=== PATIENT | male | born 1940 | race African-American/Black ===

== ENCOUNTER 2020-02-22 14:53 | Inpatient (IN) | payer OTHER ==
[2020-02-22 15:30] VITALS: BMI 22.9
--- NOTE | 2020-02-22 16:59 | PDOC ---
Attending Attestation - Resident Resident Name: VanessaRoosevelt saucedo - ED Attending Attestation I have performed the following: I have examined & evaluated the patient, The case was reviewed & discussed with the resident, I agree w/resident's findings & plan, Exceptions are as noted - HPI HPI: 02/22/20 17:22 79y M hx of alzheimers, parkinsons, htn, hl, dm, presents with a complaint of leg weakness. Per the patients , the patient has been having difficulty ambulating and has been noticibly weaker per the . The pt was ambulating well, assisted on his own approx 1 week ago, but has been getting more unsteady - yesterday was so weak could not ambulate on his own and today, she was unable to walk at all. There has been no fever/chills, cough, n/v, cp, sob, headache, dizziness, neck pain, bakc pain, focal numbness/tingling/weakness. Pt has hx of havin ga UTI and was on abx dx by his urologist recently - Physicial Exam PE: 02/22/20 17:28 exam: general: well appering no acute distress card: rrr, no mrg pulm: cta b/l, no wheezing/rales/ abd: soft nontender neuro: movig all 4 ext spontaneously and symmetrically, normal speech ext: no edema, no focalbony tendernesss - Medical Decision Making 02/22/20 17:29 ddx: differential wide and includes but is not limited to metabolic derangeent, occult infection, anemia, will obtain blood work, ua, trop, ekg, ct head pt having difficult ambulating - unable to ambulate stably here wlll r/o organic cause if neg, anticipate admission for eval for gait instability Discharge - Discharge Information Problems reviewed: Yes Clinical Impression/Diagnosis: Unable to walk, Mobitz (type) II atrioventricular block Condition: Fair - Admission Yes - Follow up/Referral - Patient Discharge Instructions - Post Discharge Activity
--- NOTE | 2020-02-22 17:24 | PDOC ---
History of Present Illness - General Chief Complaint: Weakness Stated Complaint: UNABLE TO WALK Time Seen by Provider: 02/22/20 15:13 - History of Present Illness Initial Comments: 02/22/20 17:18 79yo M with PMH of Alzheimer's dementia, Parkinson's, HTN, HLD, NIDDM presents for inability to ambulate since yesterday. Per the , patient is ambulatory at baseline without walker or cane, but has not been able to stand or walk since last night. No fall or LOC. Per , he is at mental baseline. Also has had high blood sugar recently (300s at home), but otherwise no other acute symptoms. Patient has no complaints. Per , patient was started on a new medication for overactive bladder, as he was urinating in bed. PMH/PSH: as above Meds: see home meds Allergies: none ROS GENERAL/CONSTITUTIONAL: No fever or chills. HEAD, EYES, EARS, NOSE AND THROAT: No change in vision. No ear pain or discharge. No sore throat. CARDIOVASCULAR: No chest pain or shortness of breath RESPIRATORY: No cough, wheezing, or hemoptysis. GASTROINTESTINAL: No nausea, vomiting, diarrhea or constipation. GENITOURINARY: no change in urination, no hematuria MUSCULOSKELETAL: No joint or muscle swelling or pain. No neck or back pain. SKIN: No rash NEUROLOGIC: No headache, vertigo, loss of consciousness. Inability to walk ENDOCRINE: No increased thirst. No abnormal weight change HEMATOLOGIC/LYMPHATIC: No anemia, easy bleeding, or history of blood clots. ALLERGIC/IMMUNOLOGIC: No hives or skin allergy. PE GENERAL: AAOx2 (to person and "hospital", but not year). in no acute distress HEAD: No signs of trauma, normocephalic, atraumatic EYES: PERRLA, EOMI, sclera anicteric, conjunctiva clear ENT: Auricles normal inspection, hearing grossly normal, nares patent, oropharynx clear without exudates. Moist mucosa NECK: Normal ROM, supple, no lymphadenopathy, JVD, or masses LUNGS: No distress, speaks full sentences, clear to auscultation bilaterally HEART: Regular rate and rhythm, normal S1 and S2, no murmurs, rubs or gallops, peripheral pulses normal and equal bilaterally. ABDOMEN: Soft, nontender, normoactive bowel sounds. No guarding, no rebound. No masses EXTREMITIES : Normal inspection, Normal range of motion, no edema. No clubbing or cyanosis. NEUROLOGICAL: Cranial nerves II through XII grossly intact. Normal speech, no focal sensorimotor deficits. No midline tenderness or saddle anesthesia. Patient was able to stand and shuffle his feet with assistance and support, but he would have fallen without support. SKIN: Warm, Dry, normal turgor, no rashes or lesions noted Vital Signs Temp Pulse Resp BP Pulse Ox 98.5 F 74 16 112/59 L 98 02/22/20 15:00 02/22/20 15:00 02/22/20 15:00 02/22/20 15:00 02/22/20 15:55 MDM: 79yo M with PMH of Alzheimer's dementia, Parkinson's, HTN, HLD, NIDDM presents for inability to ambulate since yesterday. No focal defitis on neuro exam, but patient unable to stand or walk without support. This decline is sudden, so will rule out other pathology. DDx includes progression of chronic Parkinson's, UTI, occult abdominal infection, metabolic derangement. Anticipate admission for, at minimum, inability to ambulate. -EKG -CXR -CBC, CMP, lactic acid, VBG, trop, UA/UC 02/22/20 17:26 EKnd degree heart block type II, rate 72, left axis deviation, non-specific ST abnormality Labs: nothing emergent. No signs of infection or metabolic derangement. Pending UA Laboratory Tests 02/22/20 02/22/20 02/22/20 16:24 16:40 16:40 WBC 12.8 H RBC 4.46 Hgb 11.9 Hct 36.7 MCV 82.2 MCH 26.7 MCHC 32.5 RDW 16.1 H Plt Count 238 D MPV 9.8 Absolute Neuts (auto) 9.6 H Neutrophils % 75.1 D Lymphocytes % 7.0 L D Monocytes % 16.4 H Eosinophils % 1.0 D Basophils % 0.5 Nucleated RBC % 0 VBG pH 7.360 POC VBG pCO2 51.6 POC VBG pO2 27.8 L VBG HCO3 28.6 VBG O2 Sat (Gia) 49.0 L VBG Base Excess 2.2 H Sodium Potassium Chloride Carbon Dioxide Anion Gap BUN Creatinine Est GFR (CKD-EPI)AfAm Est GFR (CKD-EPI)NonAf POC Glucometer 336 Random Glucose Lactic Acid Calcium Total Bilirubin AST ALT Alkaline Phosphatase Troponin I Total Protein Albumin 02/22/20 02/22/20 02/22/20 16:40 16:40 16:40 WBC RBC Hgb Hct MCV MCH MCHC RDW Plt Count MPV Absolute Neuts (auto) Neutrophils % Lymphocytes % Monocytes % Eosinophils % Basophils % Nucleated RBC % VBG pH POC VBG pCO2 POC VBG pO2 VBG HCO3 VBG O2 Sat (Gia) VBG Base Excess Sodium 136 Potassium 4.8 Chloride 102 Carbon Dioxide 29 Anion Gap 5 L BUN 18.9 H Creatinine 1.3 Est GFR (CKD-EPI)AfAm 60.15 Est GFR (CKD-EPI)NonAf 51.90 POC Glucometer Random Glucose 342 H Lactic Acid 1.4 Calcium 9.2 Total Bilirubin 0.6 AST 33 ALT 25 Alkaline Phosphatase 125 H Troponin I < 0.02 Total Protein 7.1 Albumin 2.7 L 02/22/20 17:48 Will admit for inability to ambulate and 2nd degree heart block type II. Pending UA 02/22/20 19:[address] Jim who accepted the patient for admission Past History - Medical History Allergies/Adverse Reactions: Allergies Allergy/AdvReac Type Severity Reaction Status Date / Time No Known Allergies Allergy Verified 02/22/20 15:29 Home Medications: Ambulatory Orders Aspirin [ASA -] 81 mg PO DAILY 12/30/11 Atorvastatin Ca [Lipitor] 40 mg PO HS 12/30/11 Cyanocobalamin/Folic AC/Vit B6 [Folbic Tablet] 1 each PO DAILY 12/30/11 Rasagiline Mesylate [Azilect] 1 mg PO DAILY 12/30/11 Verapamil HCl [Verapamil ER] 240 mg PO DAILY 12/30/11 Albuterol Sulfate Inhaler - [Ventolin HFA Inhaler -] 1 - 2 inh IH QID PRN 11/13/12 Betamethasone Dipr 0.05% Oint [Diprolene] 50 gm NR DAILY 11/13/12 Rivastigmine Tartrate [Rivastigmine] 4.5 mg PO DAILY 11/13/12 Telmisartan [Micardis] 40 mg PO DAILY 11/13/12 Folic Acid - 1 mg PO DAILY #0 tablet 11/15/12 Brinzolamide [Azopt (Non-Formulary)] 1 drop OP 02/22/20 Clonidine HCl 0.1 mg PO 02/22/20 Ipratropium/Albuterol Sulfate [Iprat-Albut 0.5-3(2.5) mg/3 ml] 3 ml IH 02/22/20 Linagliptin [Tradjenta] 5 mg PO 02/22/20 Losartan Potassium 50 mg PO 02/22/20 Montelukast Na [Singulair -] 10 mg PO HS 02/22/20 Solifenacin Succinate [Vesicare -] 5 mg PO DAILY 02/22/20 Tamsulosin HCl 0.4 mg PO 02/22/20 Travoprost [Travatan Z] 02/22/20 Umeclidinium Brm/Vilanterol Tr [Anoro Ellipta 62.5-25 Mcg INH] 1 each IH DAILY 02/22/20 Asthma: Yes CVA: Yes COPD: No Dementia: Yes Diabetes: Yes HTN: Yes Hypercholesterolemia: Yes - Immunization History Td Vaccination: Yes TDAP Vaccination: Yes Immunization Up to Date: Yes - Psycho-Social/Smoking History Smoking Status: No Smoking History: Unknown if ever smoked Years of Tobacco Use: 0 Number of Cigarettes Smoked Daily: 0 Cigars Per Day: 0 - Substance Abuse Hx (Audit-C & DAST Scrn) How often the patient has a drink containing alcohol: Never Score: In Men: 4 or > Positive; In Women: 3 or > Positive: 0 Screen Result (Pos requires Nsg. Audit-10AR): Negative In the last yr the pt used illegal drug/Rx for NonMed reason: No Score: Yes response is considered Positive: 0 Screen Result (Positive result requires Nsg. DAST-10): Negative *Physical Exam - Vital Signs Last Vital Signs Temp Pulse Resp BP Pulse Ox 98.5 F 74 16 112/59 L 97 02/22/20 15:00 02/22/20 15:00 02/22/20 15:00 02/22/20 15:00 02/22/20 15:00 ED Treatment Course - LABORATORY CBC & Chemistry Diagram: 02/22/20 16:40 02/22/20 16:40 - ADDITIONAL ORDERS Additional order review: Laboratory Results 02/22/20 16:24 POC Glucometer 336 02/22/20 16:24 POC Glucometer 336 Discharge - Discharge Information Problems reviewed: Yes Clinical Impression/Diagnosis: Unable to walk, Mobitz (type) II atrioventricular block Condition: Fair - Admission Yes - Follow up/Referral - Patient Discharge Instructions - Post Discharge Activity
[2020-02-22 17:58] LABS: VENOUS PH 7.36 (7.310-7.410)
[2020-02-22 17:59] LABS: VENOUS BASE EXCESS 2.2 mmol/L (-2-2); VENOUS PCO2 51.6 mmHg (38-52)
[2020-02-22 18:03] LABS: BASO % 0.5 % (0-2.0); HEMATOCRIT 36.7 % (35.4-49); HEMOGLOBIN 11.9 GM/dL (11.7-16.9); MCH 26.7 pg (25.7-33.7); MCHC 32.5 g/dl (32.0-35.9); MEAN CELL VOLUME 82.2 fl (80-96); MEAN PLT VOLUME 9.8 fl (7.5-11.1); MONO % 16.4 % (3.8-10.2); NEUT % 75.1 % (42.8-82.8); PLATELET COUNT 238 K/MM3 (134-434); RBC 4.46 M/mm3 (4.00-5.60); RDW 16.1 % (11.9-15.9); WHITE BLOOD COUNT 12.8 K/mm3 (4.0-10.0)
[2020-02-22 18:25] LABS: ALBUMIN 2.7 g/dl (3.4-5.0); BILIRUBIN,TOTAL 0.6 mg/dL (0.2-1); BLOOD UREA NITROGEN 18.9 mg/dL (7-18); CALCIUM 9.2 mg/dL (8.5-10.1); CREATININE 1.3 mg/dL (0.55-1.3); POTASSIUM 4.8 mmol/L (3.5-5.1); TOT PROT 7.1 g/dl (6.4-8.2)
--- NOTE | 2020-02-22 18:52 | HP ---
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, Parkinson's Cardiovascular: Yes: CAD, HTN, Hyperlipdemia Pulmonary: No: Asthma, Bronchitis, Cancer, COPD, O2 Dependent, Pneumonia, Previously Intubated, Pulmonary Embolus, Pulmonary Fibrosis, Sleep Apnea, Other Gastrointestinal: No: Ascites, Cancer, Constipation, Crohn's Disease, Diverticulitis, Diverticulosis, Esophageal Varices, Gastritis, GERD, GI Bleed, Hemorrhoids, Hiatal Hernia, Inflamatory Bowel Disease, Irritable Bowel Disease, Pancreatitis, Peptic Ulcer Disease, Ulcerative Colitis, Other Hepatobiliary: No: Cirrhosis, Cholelithiasis, Cholecystitis, Zofia docholithiasis, Hepatitis A, Hepatitis B, Hepatitis C, Other Renal/: Yes: BPH Heme/Onc: No: Anemia, B12 Deficiency, Bleeding Disorder, Cancer, Current Chemotherapy, Current Radiation Therapy, Hemochromatosis, Hypercoaguable State, Myeloproliferative Synd, Sickle Cell Disease, Sickle Cell Trait, Thrombocytopenia, Other Infectious Disease: No: AIDS, C-Diff, Herpes Zoster, HIV, MRSA, STD's, Tuberculosis, VREF, Other Psych: No: Addictions, Anxiety, Bipolar, Depression, Panic, Psychosis, Schizophrenia, Other Musculoskeletal: No: Bursitis, Chronic low back pain, Hemiparesis, Hemiplegia, Osteoarthritis, Paraplegia, Other Rheumatology: No: Fibromyalgia, Gout, Lupus, Rheumatoid Arthritis, Sarcoidosis, Vasculitis, Other ENT: No: Allergic Rhinitis, Sinusitis, Other Endocrine: Yes: Diabetes Mellitus Dermatology: No: Basal Cell, Cellulitis, Eczema, Melanoma, Psoriasis, Squamous Cell, Other - Past Surgical History Past Surgical History: Yes: Stent - Smoking History Smoking history: Unknown if ever smoked Aproximately how many cigarettes per day: 0 Home Medications - Allergies Allergies/Adverse Reactions: Allergies Allergy/AdvReac Type Severity Reaction Status Date / Time No Known Allergies Allergy Verified 02/22/20 15:29 - Home Medications Home Medications: Ambulatory Orders Aspirin [ASA -] 81 mg PO DAILY 12/30/11 Atorvastatin Ca [Lipitor] 40 mg PO HS 12/30/11 Cyanocobalamin/Folic AC/Vit B6 [Folbic Tablet] 1 each PO DAILY 12/30/11 Rasagiline Mesylate [Azilect] 1 mg PO DAILY 12/30/11 Verapamil HCl [Verapamil ER] 240 mg PO DAILY 12/30/11 Albuterol Sulfate Inhaler - [Ventolin HFA Inhaler -] 1 - 2 inh IH QID PRN 11/13/12 Betamethasone Dipr 0.05% Oint [Diprolene] 50 gm NR DAILY 11/13/12 Rivastigmine Tartrate [Rivastigmine] 4.5 mg PO DAILY 11/13/12 Telmisartan [Micardis] 40 mg PO DAILY 11/13/12 Folic Acid - 1 mg PO DAILY #0 tablet 11/15/12 Brinzolamide [Azopt (Non-Formulary)] 1 drop OP 02/22/20 Clonidine HCl 0.1 mg PO 02/22/20 Ipratropium/Albuterol Sulfate [Iprat-Albut 0.5-3(2.5) mg/3 ml] 3 ml IH 02/22/20 Linagliptin [Tradjenta] 5 mg PO 02/22/20 Losartan Potassium 50 mg PO 02/22/20 Montelukast Na [Singulair -] 10 mg PO HS 02/22/20 Solifenacin Succinate [Vesicare -] 5 mg PO DAILY 02/22/20 Tamsulosin HCl 0.4 mg PO 02/22/20 Travoprost [Travatan Z] 02/22/20 Umeclidinium Brm/Vilanterol Tr [Anoro Ellipta 62.5-25 Mcg INH] 1 each IH DAILY 02/22/20 Review of Systems - Review of Systems Constitutional: reports: Weakness Eyes: reports: No Symptoms HENT: reports: No Symptoms Neck: reports: No Symptoms Cardiovascular: reports: No Symptoms Respiratory: reports: No Symptoms Gastrointestinal: reports: No Symptoms Genitourinary: reports: No Symptoms Breasts: reports: No Symptoms Reported Musculoskeletal: reports: Muscle Weakness Integumentary: reports: No Symptoms Neurological: reports: Unsteady Gait, Weakness Endocrine: reports: No Symptoms Hematology/Lymphatic: reports: No Symptoms Psychiatric: reports: No Symptoms Physical Examination Vital Signs: Vital Signs Temperature 98.5 F 02/22/20 15:00 Pulse Rate 74 02/22/20 15:00 Respiratory Rate 16 02/22/20 15:00 Blood Pressure 112/59 L 02/22/20 15:00 O2 Sat by Pulse Oximetry (%) 98 02/22/20 17:44 Constitutional: Yes: No Distress, Calm, Cachectic, Thin Eyes: Yes: Conjunctiva Clear, EOM Intact HENT: Yes: Atraumatic, Normocephalic Neck: Yes: Supple, Trachea Midline Cardiovascular: Yes: Regular Rate and Rhythm Respiratory: Yes: Regular, CTA Bilaterally Gastrointestinal: Yes: Normal Bowel Sounds, Soft ...Rectal Exam: Yes: Deferred Renal/: Yes: WNL Breast(s): Yes: WNL Musculoskeletal: Yes: Muscle Weakness Extremities: Yes: WNL Edema: No Peripheral Pulses WNL: Yes Integumentary: Yes: WNL Neurological: Yes: Alert, Unsteady Gait, Weakness ...Motor Strength: LLE (muscle weakness), RLE (muscle weakness) Psychiatric: Yes: Alert Labs: CBC, BMP 02/22/20 16:40 02/22/20 16:40 Imaging - Results EKG: Report Reviewed Other: Report Reviewed (lab data reviewed) Problem List - Problems (1) Mobitz (type) II atrioventricular block Code(s): I44.1 - ATRIOVENTRICULAR BLOCK, SECOND DEGREE (2) Unable to walk Code(s): R26.2 - DIFFICULTY IN WALKING, NOT ELSEWHERE CLASSIFIED Assessment/Plan Assessment/plan: acute inability to walk, Mobitz type II AV block, acute UTI, leukocytosis, Alzheimer's dementia, Parkinson's disease, HTN, HLD, DM, CAD, s/p stent, BPH; SQ Lovenox and oral pantoprazole for DVT/GI prophylaxis, consult to Neurology, Cardiology and ID, physical therapy, sliding scale regular insulin coverage for DM.
[2020-02-22 19:32] LABS: EPI CELLS 14 /uL (0-25.1); HYALINE CASTS 4 /uL (0-3.1); PH,URINE 6.5 (5.0-8.0); URINE APPEARANCE TURBID; URINE BACTERIA >9,000 /uL (0-1359); URINE BILIRUBIN NEGATIVE (NEGATIVE); URINE COLOR YELLOW; URINE GLUCOSE (UA) 3+ (NEGATIVE); URINE KETONE NEGATIVE (NEGATIVE); URINE LEUK ESTERASE 3+ (NEGATIVE); URINE NITRITE NEGATIVE (NEGATIVE); URINE PROTEIN 1+ (NEGATIVE); URINE RBC 167 /uL (0-23.9); URINE WBC 9616 /uL (0-25.8)
[2020-02-22 19:46] LABS: YEAST NO SEEN (NEGATIVE)
[2020-02-22] MEDS ORDERED: ALBUTEROL SO4 HFA INHALER IH PRN (20:02)
[2020-02-22] MEDS ORDERED: PANTOPRAZOLE 40 MG TABLET ONE (20:35)
[2020-02-22] MEDS ORDERED: ENOXAPARIN NA (PORCINE) 40 MG/0.4 ML DISP.SYRIN SQ ONE (20:35)
[2020-02-22] MEDS ORDERED: MONTELUKAST NA 10 MG TABLET ONE (20:35)
[2020-02-22] MEDS: PANTOPRAZOLE 40 MG TABLET PO SCH (20:56)
[2020-02-22] MEDS: ENOXAPARIN NA (PORCINE) 40 MG/0.4 ML DISP.SYRIN SQ SCH (20:56)
[2020-02-22] MEDS: INSULIN SLIDING SCALE (NOVOLOG) 1 VIAL SQ SCH (20:56)
[2020-02-22] MEDS: ATORVASTATIN CA 40 MG TABLET (FP) PO SCH (21:49)
[2020-02-22] MEDS: MONTELUKAST NA 5 MG TAB.CHEW PO SCH (21:49)
[2020-02-23] MEDS: INSULIN SLIDING SCALE (NOVOLOG) 1 VIAL SQ SCH ×3 (07:54→17:21)
--- NOTE | 2020-02-23 07:54 | CON.CARD ---
Consult Consult Specialty:: cardiology Reason for Consultation:: weakness; hx diastolic CHF; COPD - History of Present Illness Chief Complaint: Pt alert; knows he is in a hospital, but does not know which; does not know why he was admitted; does not know the date. Does not remember who his PMD is. History of Present Illness: Mr. 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 Per the patients , the patient has been having difficulty ambulating and has been noticeably weaker. The pt was ambulating well, assisted on his own approximately 1 week ago, but has been getting more unsteady - yesterday was so weak could not ambulate on his own and today, he was unable to walk at all. There has been no fever/chills, cough, n/v, cp, sob, headache, diz ziness, neck pain, bakc pain, focal numbness/tingling/weakness. Pt has hx of UTI and was on abx by his urologist recently Pt was last seen in our cardiology office 10/2018: ECHO 03/05/2018: (technically difficult study due to lung tissue interference and body habitus): normal LVEF: borderline LVH; abnormal diastolic compliance; mild MR and TR (normal RVSP). Carotid artery US: mild-moderate plaque; no stenoses. Pt's blood pressure was 160/70 mmHg initially that day; taken 10 minutes later, when pt had been sitting alone quietly, ti was 156/70 mmHg. His says BP checks at home vary, but are frequently elevated. Pt was restarted on a thiazide diuretic (chlorthalidone 25 mg daily); f/u serial BP checks, both at home and in offices, and BUN/Cr with electrolytes. Continued telmisartran (and increase dose if needed) and verapamil. Continued daily exercise; pt was walking daily. Added light weight-bearing and balance exercises. F/u fasting lipids (on atorvastatin) and glucose; TSH. Follow heart-healthy diet. Pt is seen by Dr. Scruggs pharmacovigilance specialist, for DM and hyperlipidemia. F/u with teachers assistant regarding COPD. PMD: Dr. Layne Blender / Cook: Dr. 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, Parkinson's Cardio/Vascular: Yes: CAD, HTN, Hyperlipdemia Pulmonary: No: Asthma, Bronchitis, Cancer, COPD, O2 Dependent, Pneumonia, Previously Intubated, Pulmonary Embolus, Pulmonary Fibrosis, Sleep Apnea, Other Gastrointestinal: No: Ascites, Cancer, Constipation, Crohn's Disease, Diverticulitis, Diverticulosis, Esophageal Varices, Gastritis, GERD, GI Bleed, Hemorrhoids, Hiatal Hernia, Inflamatory Bowel Disease, Irritable Bowel Disease, Pancreatitis, Peptic Ulcer Disease, Ulcerative Colitis, Other Hepatobiliary: No: Cirrhosis, Cholelithiasis, Cholecystitis, Choledocholithiasis, Hepatitis A, Hepatitis B, Hepatitis C, Other Renal/: Yes: BPH Infectious Disease: No: AIDS, C-Diff, Herpes Zoster, HIV, MRSA, STD's, Tuberculosis, VREF, Other Psych: No: Addictions, Anxiety, Bipolar, Depression, Panic, Psychosis, Schi zophrenia, Other Musculoskeletal: No: Bursitis, Chronic low back pain, Hemiparesis, Hemiplegia, Osteoarthritis, Paraplegia, Other Rheumatology: No: Fibromyalgia, Gout, Lupus, Rheumatoid Arthritis, Sarcoidosis, Vasculitis, Other ENT: No: Allergic Rhinitis, Sinusitis, Other Endocrine: Yes: Diabetes Mellitus Dermatology: No: Basal Cell, Cellulitis, Eczema, Melanoma, Psoriasis, Squamous Cell, Other - Past Surgical History Past Surgical History: Yes: Stent (coronary) - Alcohol/Substance Use Hx Alcohol Use: Yes - Smoking History Smoking history: Former smoker Have you smoked in the past 12 months: No Aproximately how many cigarettes per day: 0 - Social History Usual Living Arrangement: With Spouse Home Medications - Allergies Allergies/Adverse Reactions: Allergies Allergy/AdvReac Type Severity Reaction Status Date / Time No Known Allergies Allergy Verified 02/22/20 15:29 - Home Medications Home Medications: Ambulatory Orders Aspirin [ASA -] 81 mg PO DAILY 12/30/11 Atorvastatin Ca [Lipitor] 40 mg PO HS 12/30/11 Cyanocobalamin/Folic AC/Vit B6 [Folbic Tablet] 1 each PO DAILY 12/30/11 Rasagiline Mesylate [Azilect] 1 mg PO DAILY 12/30/11 Verapamil HCl [Verapamil ER] 240 mg PO DAILY 12/30/11 Albuterol Sulfate Inhaler - [Ventolin HFA Inhaler -] 1 - 2 inh IH QID PRN 11/13/12 Betamethasone Dipr 0.05% Oint [Diprolene] 50 gm NR DAILY 11/13/12 Rivastigmine Tartrate [Rivastigmine] 4.5 mg PO DAILY 11/13/12 Telmisartan [Micardis] 40 mg PO DAILY 11/13/12 Folic Acid - 1 mg PO DAILY #0 tablet 11/15/12 Brinzolamide [Azopt (Non-Formulary)] 1 drop OP 02/22/20 Clonidine HCl 0.1 mg PO 02/22/20 Ipratropium/Albuterol Sulfate [Iprat-Albut 0.5-3(2.5) mg/3 ml] 3 ml IH 02/22/20 Linagliptin [Tradjenta] 5 mg PO 02/22/20 Losartan Potassium 50 mg PO 02/22/20 Montelukast Na [Singulair -] 10 mg PO HS 02/22/20 Solifenacin Succinate [Vesicare -] 5 mg PO DAILY 02/22/20 Tamsulosin HCl 0.4 mg PO 02/22/20 Travoprost [Travatan Z] 02/22/20 Umeclidinium Brm/Vilanterol Tr [Anoro Ellipta 62.5-25 Mcg INH] 1 each IH DAILY 02/22/20 Review of Systems Unable to obtain ROS, reason: dementia - Risk Factors Known Risk Factors: Yes: Age, Gender Vital Signs: Vital Signs Temperature 99.8 F H 02/23/20 01:29 Pulse Rate 75 02/23/20 01:29 Respiratory Rate 20 02/23/20 04:40 Blood Pressure 164/78 02/23/20 07:00 O2 Sat by Pulse Oximetry (%) 94 L 02/23/20 07:00 Constitutional: Yes: Calm Eyes: Yes: WNL HENT: Yes: WNL Neck: Yes: WNL Respiratory: Yes: WNL Gastrointestinal: Yes: Soft Renal/: No: Anuria Cardiovascular: Yes: Regular Rate and Rhythm JVD: No Carotid Bruit: No PMI: Non-Displaced Heart Sounds: Yes: S1, S2, S4 Musculoskeletal: Yes: Muscle Weakness Extremities: Yes: Cool Edema: No Peripheral Pulses WNL: Yes Integumentary: Yes: WNL Neurological: Yes: Alert, Oriented, Weakness Psychiatric: Yes: Alert, Other (dementia) - Other Data Labs, Other Data: CBC, BMP 02/22/20 16:40 02/22/20 16:40 Troponin, BNP 02/22/20 16:40 Troponin I < 0.02 Troponin, BNP 02/22/20 16:40 Troponin I < 0.02 Abnormal Lab Results 02/22/20 02/23/20 16:40 12:36 Hemoglobin A1c % 7.8 H HDL Cholesterol 67 H Echo: Report Reviewed (2012: normal LVEF) Ejection Fraction %: LVEF > or = 40 % Imaging - Results Chest X-ray: Image Reviewed EKG: Image Reviewed Assessment/Plan Progressive weakness; admitted when noted unable to walk. Parkinson's Progressive (and now advanced) dementia DM HTN HLD diastolic LV dysfunction fromer alcoholic, cigarettes (quit both 40 yrs ago). Pl: COVID not detected EKG: NSR; normal study Telemetry: occasional VPCs, dropped ventricular beat with compensatory pause TNI < 0.02 F/u ECHO for LVEF, wall motion, valve status F/u neurology evaluation regarding Parkinson's Physical rehabilitation. F/u TSH, lipids, HGBA1c Discussed pt's present state with his .
[2020-02-23] MEDS: PANTOPRAZOLE 40 MG TABLET PO SCH (09:06)
[2020-02-23] MEDS: ENOXAPARIN NA (PORCINE) 40 MG/0.4 ML DISP.SYRIN SQ SCH (09:06)
[2020-02-23] MEDS: TAMSULOSIN HCL 0.4 MG CAP PO SCH (09:06)
[2020-02-23] MEDS: SOLIFENACIN SUCCINATE 5 MG TAB PO SCH (09:07)
[2020-02-23] MEDS: FOLIC ACID 1 MG TABLET (FP) PO SCH (09:10)
[2020-02-23] MEDS: ASPIRIN COATED 81 MG TABLET.EC PO SCH (09:10)
[2020-02-23] MEDS: CYANOCOBALAMIN 1,000 MCG TABLET (FP) PO SCH (09:10)
[2020-02-23] MEDS ORDERED: RIVASTIGMINE TARTRATE 1.5 MG CAPSULE PO SCH (10:00)
[2020-02-23] MEDS ORDERED: VERAPAMIL HCL 240 MG E.R. TABLET PO SCH (10:00)
[2020-02-23] MEDS ORDERED: LOSARTAN POTASSIUM 50 MG TABLET (FP) PO SCH (10:00)
[2020-02-23] MEDS ORDERED: VERAPAMIL HCL 120 MG E.R. TABLET PO SCH (10:36)
[2020-02-23] MEDS ORDERED: PT OWN MED DRAWER 7, Y5N ONE ×4 (10:51→22:01)
[2020-02-23] MEDS: BETAMETHASONE DIPR 0.05% OINT 45 GM TUBE TP SCH (11:38)
[2020-02-23] MEDS: VERAPAMIL HCL 120 MG E.R. TABLET PO SCH (11:46)
--- NOTE | 2020-02-23 11:47 | PN ---
Progress Note, Physician Chief Complaint: Patient seen and examined at the bedside, no acute events from last night, low grade fever. History of Present Illness: This 79 yr old male with PMH of Alzheimer's dementia, Parkinson's disease, HTN, HLD, CAD, DM admitted via ER with an acute inability to walk and an acute UTI. - Current Medication List Current Medications: Active Medications Albuterol Sulfate (Ventolin Hfa Inhaler -) 2 puff IH Q6H PRN PRN Reason: SHORT OF BREATH/WHEEZING Aspirin (Ecotrin -) 81 mg PO DAILY [facility] Last Admin: 02/23/20 09:10 Dose: 81 mg Documented by: Atorvastatin Calcium (Lipitor -) 40 mg PO HS [facility] Last Admin: 02/22/20 21:49 Dose: 40 mg Documented by: Betamethasone Dipropionate (Diprolene 0.05% Ointment -) 1 applic TP DAILY [facility] Last Admin: 02/23/20 11:38 Dose: 1 applic Documented by: Cyanocobalamin (Vitamin B12 -) 1,000 mcg PO DAILY [facility] Last Admin: 02/23/20 09:10 Dose: 1,000 mcg Documented by: Enoxaparin Sodium (Lovenox -) 40 mg SQ DAILY [facility] Last Admin: 02/23/20 09:06 Dose: 40 mg Documented by: Folic Acid (Folic Acid -) 1 mg PO DAILY [facility] Last Admin: 02/23/20 09:10 Dose: 1 mg Documented by: Insulin Aspart (Novolog Vial Sliding Scale -) 1 vial SQ TIDAC [facility]; Protocol Last Admin: 02/23/20 11:37 Dose: 2 unit Documented by: Losartan Potassium (Cozaar -) 50 mg PO DAILY [facility] Last Admin: 02/23/20 09:09 Dose: 50 mg Documented by: Montelukast Sodium (Singulair -) 10 mg PO HS [facility] Last Admin: 02/22/20 21:49 Dose: 10 mg Documented by: Pantoprazole Sodium (Protonix -) 40 mg PO DAILY [facility] Last Admin: 02/23/20 09:06 Dose: 40 mg Documented by: Rivastigmine Tartrate (Exelon) 4.5 mg PO DAILY [facility] Last Admin: 02/23/20 09:05 Dose: 4.5 mg Documented by: Solifenacin (Vesicare -) 5 mg PO DAILY [facility] Last Admin: 02/23/20 09:07 Dose: 5 mg Documented by: Tamsulosin HCl (Flomax -) 0.4 mg PO DAILY@0830 [facility] Last Admin: 02/23/20 09:06 Dose: 0.4 mg Documented by: Verapamil HCl (Calan Sr -) 120 mg PO DAILY [facility] - Objective Vital Signs: Vital Signs Temperature 99.6 F 02/23/20 09:00 Pulse Rate 84 02/23/20 09:00 Respiratory Rate 18 02/23/20 09:00 Blood Pressure 159/87 02/23/20 09:00 O2 Sat by Pulse Oximetry (%) 95 02/23/20 09:00 Constitutional: Yes: Well Nourished, No Distress, Calm Eyes: Yes: Conjunctiva Clear, EOM Intact HENT: Yes: Atraumatic, Normocephalic Neck: Yes: Supple, Trachea Midline Cardiovascular: Yes: Regular Rate and Rhythm Respiratory: Yes: Regular, CTA Bilaterally Gastrointestinal: Yes: Normal Bowel Sounds, Soft ...Rectal Exam: Yes: Deferred Genitourinary: Yes: WNL Breast(s): Yes: WNL Musculoskeletal: Yes: Muscle Weakness Edema: No Peripheral Pulses WNL: Yes Integumentary: Yes: WNL Neurological: Yes: Alert, Unsteady Gait, Weakness ...Motor Strength: LLE (muscle weakness), RLE (muscle weakness) Psychiatric: Yes: Alert Labs: CBC, BMP 02/22/20 16:40 02/22/20 16:40 Problem List - Problems (1) Mobitz (type) II atrioventricular block Code(s): I44.1 - ATRIOVENTRICULAR BLOCK, SECOND DEGREE (2) Unable to walk Code(s): R26.2 - DIFFICULTY IN WALKING, NOT ELSEWHERE CLASSIFIED Assessment/Plan Assessment/plan: acute inability to walk; diastolic LV dysfunction; mild leukocytosis; UTI; hypoalbuminemia; mild elevation of serum alk phos; Alzheimer's dementia, Parkinson's disease, HTN, HLD, BPH, CAD, DM; SQ Lovenox and oral pantoprazole for DVT/GI prophylaxis; albuterol sufate inha nd singulari for dyspnea/wheezing; tamsulosin for BPH; rivastigmine for dementia; atorvastatin for HLD; losartan and verapamil for HTN; vitamin b12 for vitamin b12 deficiency; sliding scale regular insulin coverage for DM; Vesicare for overactive bladder; out of bed in chair as tolerated; Neurology and ID consults are pending.
[2020-02-23 13:31] LABS: CHOLESTEROL 138 mg/dL (50-200); HDL CHOLESTEROL 67 mg/dL (40-60); LDL CHOLESTEROL (ONLY SJRH) 59 mg/dL (5-100); TRIGLYCERIDES 59 mg/dL (0-150)
--- NOTE | 2020-02-23 20:20 | PN ---
Progress Note (short form) - Note Progress Note: ID CONSULT DICTATED UTI R/O SEPSIS SECONDARY TO UTI AWAIT C/S EMPIRIC [id number]
--- NOTE | 2020-02-23 20:40 | CONSULT ---
Consult - text type - Consultation Consultation Note: NEUROLOGY CONSULTATION is greatly appreciated: This 79 yo RH man with PMH of HTN, DM, CHol Is well known to me over many years for Progressive OMS due to Alzheimers and Parkinsonism. 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 Peterson in the ED Labs sig for BG > 300 mg%, WBC= 12.8 K and Urinary WBC= 9616 ID Consult pending. WILBERT: Thin . Neck supple. Cor reg. I diaper NEURO: Awake, alert, friendly, cooperative. Doesn't know he is in [facility], nor the day, month or year. + Glabella, snout, grasps (symmetrical). Speech sparse but fluent CN II-XII: normal Moves all fours well. No drift. Normal grasps. Absent AJ's Feels touch distally x4 IMP: Non-focal exam sig for moderately severe B/L cerebral dysfunction (OMS) most c/w Alzheimer's disease (AD) with Parkinsonian features. Worsening due to Toxic-Metabolic Encephalopathy (UTI/ hyperglycemia) SUGGEST: Increase rivastigmine to 4.5 mg BID Hold levadopa for now Antibiotics as per ID Continue hydration Mobilize OO Bed to chair and/or DVT prophylaxis Thank you very much, Dilip Ruiz MD
[2020-02-23] MEDS: ATORVASTATIN CA 40 MG TABLET (FP) PO SCH (22:15)
[2020-02-23] MEDS: LOSARTAN POTASSIUM 50 MG TABLET (FP) PO SCH (22:15)
[2020-02-23] MEDS: RIVASTIGMINE TARTRATE 1.5 MG CAPSULE PO SCH (22:15)
[2020-02-23] MEDS: MONTELUKAST NA 5 MG TAB.CHEW PO SCH (22:15)
[2020-02-24] MEDS: INSULIN SLIDING SCALE (NOVOLOG) 1 VIAL SQ SCH ×3 (06:29→16:17)
[2020-02-24 07:24] LABS: BASO % 0.3 % (0-2.0); EOS % 0.5 % (0-4.5); HEMATOCRIT 39.4 % (35.4-49); HEMOGLOBIN 12.6 GM/dL (11.7-16.9); LYMPH % 5.2 % (8-40); MCH 26.2 pg (25.7-33.7); MEAN CELL VOLUME 81.6 fl (80-96); MEAN PLT VOLUME 9.5 fl (7.5-11.1); MONO % 13.4 % (3.8-10.2); NEUT % 80.6 % (42.8-82.8); PLATELET COUNT 263 K/MM3 (134-434); RBC 4.83 M/mm3 (4.00-5.60); RDW 16.1 % (11.9-15.9); WHITE BLOOD COUNT 11.5 K/mm3 (4.0-10.0)
[2020-02-24 07:54] LABS: POTASSIUM 4.1 mmol/L (3.5-5.1)
[2020-02-24 08:00] LABS: ALBUMIN 2.9 g/dl (3.4-5.0); BILIRUBIN,TOTAL 1.1 mg/dL (0.2-1); BLOOD UREA NITROGEN 21.3 mg/dL (7-18); CALCIUM 9.4 mg/dL (8.5-10.1); CREATININE 1.3 mg/dL (0.55-1.3); TOT PROT 8.6 g/dl (6.4-8.2)
--- NOTE | 2020-02-24 08:15 | PN ---
Progress Note, Physician Chief Complaint: Patient seen and examined at the bedside, no acute events from last night, afebrile. History of Present Illness: This 79 yr old male with PMH of Alzheimer's dementia, Parkinson's disease, HTN, HLD, CAD, DM admitted via ER with an acute inability to walk and an acute UTI, and leukocytosis. - Current Medication List Current Medications: Active Medications Albuterol Sulfate (Ventolin Hfa Inhaler -) 2 puff IH Q6H PRN PRN Reason: SHORT OF BREATH/WHEEZING Aspirin (Ecotrin -) 81 mg PO DAILY [facility] Last Admin: 02/23/20 09:10 Dose: 81 mg Documented by: Atorvastatin Calcium (Lipitor -) 40 mg PO HS [facility] Last Admin: 02/23/20 22:15 Dose: 40 mg Documented by: Betamethasone Dipropionate (Diprolene 0.05% Ointment -) 1 applic TP DAILY [facility] Last Admin: 02/23/20 11:38 Dose: 1 applic Documented by: Cyanocobalamin (Vitamin B12 -) 1,000 mcg PO DAILY [facility] Last Admin: 02/23/20 09:10 Dose: 1,000 mcg Documented by: Enoxaparin Sodium (Lovenox -) 40 mg SQ DAILY [facility] Last Admin: 02/23/20 09:06 Dose: 40 mg Documented by: Folic Acid (Folic Acid -) 1 mg PO DAILY [facility] Last Admin: 02/23/20 09:10 Dose: 1 mg Documented by: Ceftriaxone Sodium 1 gm/ (Dextrose) 50 mls @ 200 mls/hr IVPB DAILY [facility]; Protocol Insulin Aspart (Novolog Vial Sliding Scale -) 1 vial SQ TIDAC [facility]; Protocol Last Admin: 02/24/20 06:29 Dose: 6 unit Documented by: Losartan Potassium (Cozaar -) 50 mg PO BID [facility] Last Admin: 02/23/20 22:15 Dose: 50 mg Documented by: Metoprolol Succinate (Toprol Xl -) 50 mg PO DAILY [facility] Last Admin: 02/24/20 08:02 Dose: 50 mg Documented by: Montelukast Sodium (Singulair -) 10 mg PO HS [facility] Last Admin: 02/23/20 22:15 Dose: 10 mg Documented by: Pantoprazole Sodium (Protonix -) 40 mg PO DAILY [facility] Last Admin: 02/23/20 09:06 Dose: 40 mg Documented by: Rivastigmine Tartrate (Exelon) 4.5 mg PO BID [facility] Last Admin: 02/23/20 22:15 Dose: 4.5 mg Documented by: Solifenacin (Vesicare -) 5 mg PO DAILY [facility] Last Admin: 02/23/20 09:07 Dose: 5 mg Documented by: Tamsulosin HCl (Flomax -) 0.4 mg PO DAILY@0830 [facility] Last Admin: 02/23/20 09:06 Dose: 0.4 mg Documented by: Verapamil HCl (Calan Sr -) 120 mg PO DAILY [facility] Last Admin: 02/23/20 11:46 Dose: 120 mg Documented by: - Objective Vital Signs: Vital Signs Temperature 98.2 F 02/24/20 07:55 Pulse Rate 91 H 02/24/20 07:55 Respiratory Rate 18 02/24/20 07:55 Blood Pressure 165/101 H 02/24/20 07:55 O2 Sat by Pulse Oximetry (%) 96 02/24/20 07:55 Constitutional: Yes: Well Nourished, No Distress, Calm Eyes: Yes: Conjunctiva Clear, EOM Intact HENT: Yes: Atraumatic, Normocephalic Neck: Yes: Supple, Trachea Midline Cardiovascular: Yes: Regular Rate and Rhythm Respiratory: Yes: Regular, CTA Bilaterally Gastrointestinal: Yes: Normal Bowel Sounds, Soft ...Rectal Exam: Yes: Deferred Genitourinary: Yes: WNL Breast(s): Yes: WNL Musculoskeletal: Yes: Muscle Weakness Edema: No Peripheral Pulses WNL: Yes Integumentary: Yes: WNL Neurological: Yes: Alert, Confusion, Unsteady Gait, Weakness ...Motor Strength: LLE (muscle weakiness), RLE (muscle weakness) Psychiatric: Yes: Alert Labs: CBC, BMP 02/24/20 06:06 02/24/20 06:06 - ....Imaging Other: Report Reviewed (lab data reviewed) Problem List - Problems (1) Mobitz (type) II atrioventricular block Code(s): I44.1 - ATRIOVENTRICULAR BLOCK, SECOND DEGREE (2) Unable to walk Code(s): R26.2 - DIFFICULTY IN WALKING, NOT ELSEWHERE CLASSIFIED Assessment/Plan Assessment/plan: acute inability to walk, acute nonlactose fermenting gram negative bacilli UTI, neutrophilic leukocytosis, moderately severe bilateral cerebral dysfunction (OMS) most c/w Alzheimer's disease with Parkinsonian features worsening due to toxic metabolic encephalopathy (UTI, uncontrolled DM), HTN, HLD, CAD, DM; IV Ceftriaxone for UTI; SQ Lovenox aspirin and oral pantoprazole for DVT/GI prophylaxis; sliding scale regular insulin coverage for DM; albuterol and singulair for dyspnea/wheezing; tamsulosin for BPH; rivastigmine for dementia; atorvastatin for HLD; metoprolol and verapamil for HTN; vesicare for overactive bladder; physical therapy for deconditioning.
[2020-02-24] MEDS: TAMSULOSIN HCL 0.4 MG CAP PO SCH (08:27)
[2020-02-24] MEDS ORDERED: DEXTROSE 5%-WATER - 50 ML IVPB ONE (09:14)
[2020-02-24] MEDS ORDERED: cefTRIAXone SODIUM 1 GM VIAL ONE (09:14)
[2020-02-24] MEDS: ASPIRIN COATED 81 MG TABLET.EC PO SCH (10:09)
[2020-02-24] MEDS: FOLIC ACID 1 MG TABLET (FP) PO SCH (10:09)
[2020-02-24] MEDS: CEFTRIAXONE 1 GM in DEXTROSE 5%-WATER - 50 ML IVPB SCH (10:10)
[2020-02-24] MEDS: ENOXAPARIN NA (PORCINE) 40 MG/0.4 ML DISP.SYRIN SQ SCH (10:10)
[2020-02-24] MEDS: CYANOCOBALAMIN 1,000 MCG TABLET (FP) PO SCH (10:10)
[2020-02-24] MEDS: PANTOPRAZOLE 40 MG TABLET PO SCH (10:10)
[2020-02-24] MEDS: LOSARTAN POTASSIUM 50 MG TABLET (FP) PO SCH ×2 (10:11→21:46)
[2020-02-24] MEDS: BETAMETHASONE DIPR 0.05% OINT 45 GM TUBE TP SCH (10:11)
[2020-02-24] MEDS: VERAPAMIL HCL 120 MG E.R. TABLET PO SCH (10:14)
[2020-02-24] MEDS: SOLIFENACIN SUCCINATE 5 MG TAB PO SCH (10:15)
[2020-02-24] MEDS: RIVASTIGMINE TARTRATE 1.5 MG CAPSULE PO SCH ×2 (10:15→21:45)
--- NOTE | 2020-02-24 10:38 | PN ---
Progress Note, Physician History of Present Illness: Mr. 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 Per the patients , the patient has been having difficulty ambulating and has been noticeably weaker. The pt was ambulating well, assisted on his own approximately 1 week ago, but has been getting more unsteady - yesterday was so weak could not ambulate on his own and today, he was unable to walk at all. There has been no fever/chills, cough, n/v, cp, sob, headache, dizziness, neck pain, bakc pain, focal numbness/tingling/weakness. Pt has hx of UTI and was on abx by his urologist recently - Current Medication List Current Medications: Active Medications Albuterol Sulfate (Ventolin Hfa Inhaler -) 2 puff IH Q6H PRN PRN Reason: SHORT OF BREATH/WHEEZING Aspirin (Ecotrin -) 81 mg PO DAILY [facility] Last Admin: 02/24/20 10:09 Dose: 81 mg Documented by: Atorvastatin Calcium (Lipitor -) 40 mg PO HS [facility] Last Admin: 02/23/20 22:15 Dose: 40 mg Documented by: Betamethasone Dipropionate (Diprolene 0.05% Ointment -) 1 applic TP DAILY [facility] Last Admin: 02/24/20 10:11 Dose: 1 applic Documented by: Cyanocobalamin (Vitamin B12 -) 1,000 mcg PO DAILY [facility] Last Admin: 02/24/20 10:10 Dose: 1,000 mcg Documented by: Enoxaparin Sodium (Lovenox -) 40 mg SQ DAILY [facility] Last Admin: 02/24/20 10:10 Dose: 40 mg Documented by: Folic Acid (Folic Acid -) 1 mg PO DAILY [facility] Last Admin: 02/24/20 10:09 Dose: 1 mg Documented by: Ceftriaxone Sodium 1 gm/ (Dextrose) 50 mls @ 200 mls/hr IVPB DAILY [facility]; Protocol Last Admin: 02/24/20 10:10 Dose: 200 mls/hr Documented by: Insulin Aspart (Novolog Vial Sliding Scale -) 1 vial SQ TIDAC [facility]; Protocol Losartan Potassium (Cozaar -) 50 mg PO BID [facility] Last Admin: 02/24/20 10:11 Dose: 50 mg Documented by: Metoprolol Succinate (Toprol Xl -) 50 mg PO BID [facility] Montelukast Sodium (Singulair -) 10 mg PO HS [facility] Last Admin: 02/23/20 22:15 Dose: 10 mg Documented by: Pantoprazole Sodium (Protonix -) 40 mg PO DAILY [facility] Last Admin: 02/24/20 10:10 Dose: 40 mg Documented by: Rivastigmine Tartrate (Exelon) 4.5 mg PO BID [facility] Last Admin: 02/24/20 10:15 Dose: 4.5 mg Documented by: Solifenacin (Vesicare -) 5 mg PO DAILY [facility] Last Admin: 02/24/20 10:15 Dose: 5 mg Documented by: Tamsulosin HCl (Flomax -) 0.4 mg PO DAILY@0830 [facility] Last Admin: 02/24/20 08:27 Dose: 0.4 mg Documented by: Verapamil HCl (Calan Sr -) 120 mg PO DAILY [facility] Last Admin: 02/24/20 10:14 Dose: 120 mg Documented by: - Objective Vital Signs: Vital Signs Temperature 98.2 F 02/24/20 07:55 Pulse Rate 91 H 02/24/20 07:55 Respiratory Rate 18 02/24/20 07:55 Blood Pressure 165/101 H 02/24/20 07:55 O2 Sat by Pulse Oximetry (%) 96 02/24/20 07:55 Eyes: Yes: WNL, Conjunctiva Clear, EOM Intact HENT: Yes: WNL, Atraumatic, Normocephalic Neck: Yes: WNL, Supple, Trachea Midline Cardiovascular: Yes: WNL, Regular Rate and Rhythm Respiratory: Yes: WNL, Regular, CTA Bilaterally Gastrointestinal: Yes: WNL, Normal Bowel Sounds Genitourinary: Yes: WNL Musculoskeletal: Yes: WNL Extremities: Yes: WNL Edema: No Integumentary: Yes: WNL Labs: CBC, BMP 02/24/20 06:06 02/24/20 06:06 Assessment/Plan Progressive weakness; admitted when noted unable to walk. Parkinson's Progressive (and now advanced) dementia DM HTN HLD diastolic LV dysfunction fromer alcoholic, cigarettes (quit both 40 yrs ago). Pl: COVID not detected EKG: NSR; normal study Telemetry: occasional VPCs, dropped ventricular beat with compensatory pause TNI < 0.02 F/u ECHO for LVEF, wall motion, valve status F/u neurology evaluation regarding Parkinson's Physical rehabilitation. F/u TSH, lipids, HGBA1c Discussed pt's present state with his .
--- NOTE | 2020-02-24 10:52 | CONS ---
INFECTIOUS DISEASE CONSULTATION DATE OF CONSULTATION: DATE OF DICTATION: 02/24/2020 HISTORY: The patient is a 79-year-old male with a history of dementia and parkinsonism, evaluated for urinary tract infection. He was admitted to the hospital on February 22, 2020, with worsening bilateral lower extremity weakness and inability to ambulate. He presented to the emergency room. He was seen in consultation by Neurology. He has apparently had progressive dementia for many years secondary to Alzheimer's and parkinsonism. 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 He now comes in with increasing confusion and inability to ambulate. In the emergency room he was noted to have a fever and elevated white blood cell count. Urine analysis showed pyuria. He was felt to have severe bilateral cerebral dysfunction consistent with Alzheimer's dementia with parkinsonian features. At presentation he is awake and in bed. He is confused. He is unable to offer any additional history. When questioned he denied any dysuria or hematuria. No complaints of suprapubic or flank pain. He denies any chest pain, shortness of breath, cough or sputum production. No fever or chills. PAST MEDICAL HISTORY: Positive for parkinsonism, dementia, hypertension, hyperlipidemia, diabetes mellitus, coronary artery disease, coronary artery stent. ALLERGIES: No known allergies. MEDICATIONS: Include albuterol, Flomax, Lovenox, Lipitor, losartan, verapamil, aspirin, Protonix. SOCIAL HISTORY: He resides at home in the community with his significant other. He is a former smoker. No recent hospitalizations. SYSTEMS REVIEW: Neurologic: Positive for parkinsonism and dementia. Cardiac: Negative chest pain or palpitations. Respiratory: Negative cough or sputum production. Gastrointestinal: Negative vomiting or diarrhea. Genitourinary: As per HPI. LABORATORY DATA: White count 12.8, hematocrit 36.7, platelet count 238, neutrophils 75, lymphocytes 7, monocytes 16. BUN 21, creatinine 1.3, total bilirubin 1.1, alkaline phosphatase 145, AST 12, ALT 34. Urine analysis shows 9616 white cells. COVID-19 PCR negative. 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 PHYSICAL EXAMINATION: General: He is awake. However, he is confused. Vital Signs: His T-max is 100.8, blood pressure 147/89, pulse 79 regular, respirations 18 per minute. HEENT: Sclerae are anicteric. Heart: Sounds S1, S2. Lungs: Clear. Abdomen: Soft, nontender. No suprapubic or flank tenderness. Extremities: Negative for edema. IMPRESSION: 1. Urinary tract infection, rule out sepsis secondary to urinary tract infection. 2. Rule out toxic metabolic encephalopathy superimposed on dementia and parkinsonism. 3. Fever, leukocytosis. Await cultures. Empiric antibiotic coverage with ceftriaxone. Supportive measures. Thank you for the kind referral. DEEJAY JOHN M.D. [id number]
--- NOTE | 2020-02-24 10:56 | EKG ---
Test Reason : Blood Pressure : / mmHG Vent. Rate : 085 BPM Atrial Rate : 085 BPM P-R Int : 160 ms QRS Dur : 084 ms QT Int : 394 ms P-R-T Axes : 084 -66 077 degrees QTc Int : 468 ms NORMAL SINUS RHYTHM LEFT AXIS DEVIATION ABNORMAL ECG WHEN COMPARED WITH ECG OF 22-FEB-2020 17:32, MOBITZ 1 SECONDARY BLOCK IS NO LONGER SEEN Confirmed by LIZA HORNER, PETER ([id number]) on 02/24/2020 10:55:46 AM Referred By: Deuce MCLEOD Confirmed By:PETER DE JESUS MD
--- NOTE | 2020-02-24 11:01 | EKG ---
Test Reason : Blood Pressure : / mmHG Vent. Rate : 072 BPM Atrial Rate : 072 BPM P-R Int : 000 ms QRS Dur : 074 ms QT Int : 368 ms P-R-T Axes : 000 -68 037 degrees QTc Int : 402 ms SINUS RHYTHM WITH SECONDARY AV BLOCK MOBITZ 1 [place] LEFT AXIS DEVIATION NONSPECIFIC ST ABNORMALITY ABNORMAL ECG WHEN COMPARED WITH ECG OF 22-FEB-2020 15:39, MOBITZ 1 SECONDARY AV BLOCK IS SEEN Confirmed by PETER DE JESUS MD ([id number]) on 02/24/2020 11:01:04 AM Referred By: Confirmed By:PETER DE JESUS MD
--- NOTE | 2020-02-24 11:52 | CONSULT ---
Admitting History and Physical - Admission History of Present Illness: 79 yr old male with PMH of Alzheimer's dementia, Parkinson's disease, HTN, HLD, CAD, DM admitted via ER with an acute inability to walk and an acute UTI, and leukocytosis. Neuro IMP: Non-focal exam sig for moderately severe B/L cerebral dysfunction (OMS) most c/w Alzheimer's disease (AD) with Parkinsonian features. Worsening due to Toxic-Metabolic Encephalopathy (UTI/ hyperglycemia) On reg diet/thin liquids. Nursing reported pt demonstrates difficulty swallowing meds crushed in applesauce, taking a long time to swallow. Selected Entries 02/23/20 02/23/20 02/23/20 00:40 01:29 07:00 Breakfast Diet Tolerated Eating (Feeding Minimum ) Ability Assistance Intake, Oral Amount Lunch Supper Temperature 100.8 F H 99.8 F H Pulse Rate 89 75 Blood Pressure 154/71 164/78 O2 Sat by Pulse Oximetry (%) 02/23/20 02/23/20 02/23/20 09:00 11:48 14:10 Breakfast 50% Diet Tolerated Fair Eating (Feeding ) Ability Intake, Oral Amount Lunch Supper Temperature 99.6 F 98.2 F Pulse Rate 84 79 Blood Pressure 159/87 147/89 O2 Sat by Pulse Oximetry (%) 02/23/20 02/23/20 02/23/20 15:44 19:44 20:00 Breakfast Diet Tolerated Fair Eating (Feeding ) Ability Intake, Oral 100 Amount Lunch 50% Supper 50% Temperature 98 F Pulse Rate 82 Blood Pressure 183/71 H O2 Sat by Pulse Oximetry (%) 02/23/20 02/24/20 02/24/20 23:00 01:00 05:00 Breakfast Diet Tolerated Eating (Feeding ) Ability Intake, Oral 150 Amount Lunch Supper Temperature 98.6 F Pulse Rate 94 H 91 H Blood Pressure 182/106 H 192/109 H O2 Sat by Pulse 95 Oximetry (%) 02/24/20 07:55 Breakfast Diet Tolerated Eating (Feeding ) Ability Intake, Oral Amount Lunch Supper Temperature 98.2 F Pulse Rate 91 H Blood Pressure 165/101 H O2 Sat by Pulse 96 Oximetry (%) Laboratory Tests 02/22/20 02/22/20 02/24/20 16:40 18:20 06:06 WBC 12.8 H 11.5 H COVID-19 ([facility]RE[facility]) Not detected First consult on this pt. History Source: Medical Record Limitations to Obtaining History: Clinical Condition, Dementia - Past Medical History POST DOCTORAL FELLOW: Yes: Alzheimer's, Dementia, Parkinson's Cardiovascular: Yes: CAD, HTN, Hyperlipdemia Pulmonary: No: Asthma, Bronchitis, Cancer, COPD, O2 Dependent, Pneumonia, Previously Intubated, Pulmonary Embolus, Pulmonary Fibrosis, Sleep Apnea, Other Gastrointestinal: No: Ascites, Cancer, Constipation, Crohn's Disease, Diverticulitis, Diverticulosis, Esophageal Varices, Gastritis, GERD, GI Bleed, Hemorrhoids, Hiatal Hernia, Inflamatory Bowel Disease, Irritable Bowel Disease, Pancreatitis, Peptic Ulcer Disease, Ulcerative Colitis, Other Hepatobiliary: No: Cirrhosis, Cholelithiasis, Cholecystitis, Choledocholithiasis, Hepatitis A, Hepatitis B, Hepatitis C, Other Renal/: Yes: BPH Heme/Onc: No: Anemia, B12 Deficiency, Bleeding Disorder, Cancer, Current Chemotherapy, Current Radiation Therapy, Hemochromatosis, Hypercoaguable State, Myeloproliferative Synd, Sickle Cell Disease, Sickle Cell Trait, Thrombocytopenia, Other Infectious Disease: No: AIDS, C-Diff, Herpes Zoster, HIV, MRSA, STD's, Tuberculosis, VREF, Other Psych: No: Addictions, Anxiety, Bipolar, Depression, Panic, Psychosis, Schizophrenia, Other Musculoskeletal: No: Bursitis, Chronic low back pain, Hemiparesis, Hemiplegia, Osteoarthritis, Paraplegia, Other Rheumatology: No: Fibromyalgia, Gout, Lupus, Rheumatoid Arthritis, Sarcoidosis, Vasculitis, Other ENT: No: Allergic Rhinitis, Sinusitis, Other Endocrine: Yes: Diabetes Mellitus Dermatology: No: Basal Cell, Cellulitis, Eczema, Melanoma, Psoriasis, Squamous Cell, Other - Past Surgical History Past Surgical History: Yes: Stent (coronary) - Smoking History Smoking history: Former smoker Have you smoked in the past 12 months: No Aproximately how many cigarettes per day: 0 - Alcohol/Substance Use Hx Alcohol Use: Yes History - Admission Reason For Visit: UNABLE TO WALK/2ND DEGREE ATRIOVENTRICULAR BLOCK - Diagnostics X-ray: Report Reviewed (cxr (-)) - General Mental Status: Forgetful, Vague, Confused Attention: Mild Impairment Ability to Follow Directions: Fair Head/Neck Control: Good - Hearing Hearing: Functional Speech Evaluation - Communication Primary Language: ALGERIAN Communication: Yes: Simple Responses Oral Expression Ability: Yes: Mild Impairment - Speech Production Able to Make Needs Known: Yes: Mildly Impaired Intelligibility: Yes: Mildly Impaired - Speech Characteristics Voice Loudness: Mildly Soft/Quiet Voice Pitch: Yes: Mildly High Voice Phonatory-based Quality: Yes: Hoarse Speech Clarity: < 100% Nasal Resonance: Normal Articulation: Yes: Precise - Language/Auditory Comprehension Follows: Yes: 1 Stage Simple Commands Observation: Able to respond to yes/no queries: Yes, Comprehends Conversational Speech: Yes - Language/Verbal Expression Aphasia: Yes: Anomia Able to Respond to Simple Queries: Yes: Mildly Impaired - Swallow Evaluation/Bedside Assessment Current Nutritional Intake: Regular, Thin Liquids Oral Secretions: Yes: WFL Dentition: Yes: Adequate Facial Symmetry at Rest: Symmetrical Facial Symmetry on Retraction: Symmetrical Against Resistance Opening: Normal Against Resistance Closing: Normal Pucker Lips: Normal Smile: Normal Lingual Movement: Normal, Symmetric Lingual Speed of Movement: Normal Lingual Movement Strgth Against Opposition: Normal Lingual Movement Characteristics: Normal Laryngeal Elevation: WFL Laryngeal Movement: Able to Palpate Rate of Intake: Slow/Holding (needs reminders repeatedly to swallow puree and to stop chewing/swallow with solids) Bolus Size: Small Labial Seal: WFL Chewing: Impaired (extended. Impaired bolus formation/transfer) Oral Prep Time: Increased A-P Transit: Impaired Pocketing: Present Bilaterally Timing of Swallow: Delayed Coughing/Throat Clear: No Change in Voice: No Recommendations - Speech Evaluation, Impression/Plan Impression: Verbal, sweet, confused. Needs reminders repeatedly to swallow puree and to stop chewing/swallow with solids sec to Dementia/PD. No overt signs of aspiration - Disposition Discharge to: Alf Facility, To be Determined - Dysphagia Impressions/Plan Swallowing Skills: Impaired Dysphagia Impressions: Mild Impairment, Moderate Impairment *Silent aspiration: cannot be R/O at bedside Dysphagia Treatment Plan: Small Bites, Chin Tuck/Down, Trial Feedings, Facilitative Feeding, Safe Rate, 1/2 tsp. at a time, Elevate HOB during feed, Other (alternate solids with liquids to clear oropharynx) - Recommendations Diet Consistency: Dysphagia Minced, 1 - 2 Soft Items Medication Administration: Crushed with applesauce Liquids: Thin Liquids Supplement: Ensure, Magic Cup, Ensure Pudding
--- NOTE | 2020-02-24 15:20 | PN ---
Progress Note, Physician History of Present Illness: AWAKE, ALERT IN BED MORE ALERT NO COMPLAINTS DENIES DYSURIA/ HEMATURIA NO FEVER/ CHILLS URINE +GNR - Current Medication List Current Medications: Active Medications Albuterol Sulfate (Ventolin Hfa Inhaler -) 2 puff IH Q6H PRN PRN Reason: SHORT OF BREATH/WHEEZING Aspirin (Ecotrin -) 81 mg PO DAILY [facility] Last Admin: 02/24/20 10:09 Dose: 81 mg Documented by: Atorvastatin Calcium (Lipitor -) 40 mg PO HS [facility] Last Admin: 02/23/20 22:15 Dose: 40 mg Documented by: Betamethasone Dipropionate (Diprolene 0.05% Ointment -) 1 applic TP DAILY [facility] Last Admin: 02/24/20 10:11 Dose: 1 applic Documented by: Cyanocobalamin (Vitamin B12 -) 1,000 mcg PO DAILY [facility] Last Admin: 02/24/20 10:10 Dose: 1,000 mcg Documented by: Enoxaparin Sodium (Lovenox -) 40 mg SQ DAILY [facility] Last Admin: 02/24/20 10:10 Dose: 40 mg Documented by: Folic Acid (Folic Acid -) 1 mg PO DAILY [facility] Last Admin: 02/24/20 10:09 Dose: 1 mg Documented by: Ceftriaxone Sodium 1 gm/ (Dextrose) 50 mls @ 200 mls/hr IVPB DAILY [facility]; Protocol Last Admin: 02/24/20 10:10 Dose: 200 mls/hr Documented by: Insulin Aspart (Novolog Vial Sliding Scale -) 1 vial SQ TIDAC [facility]; Protocol Last Admin: 02/24/20 11:23 Dose: 4 unit Documented by: Losartan Potassium (Cozaar -) 50 mg PO BID [facility] Last Admin: 02/24/20 10:11 Dose: 50 mg Documented by: Metoprolol Succinate (Toprol Xl -) 50 mg PO BID [facility] Montelukast Sodium (Singulair -) 10 mg PO [facility] Last Admin: 02/23/20 22:15 Dose: 10 mg Documented by: Pantoprazole Sodium (Protonix -) 40 mg PO DAILY [facility] Last Admin: 02/24/20 10:10 Dose: 40 mg Documented by: Rivastigmine Tartrate (Exelon) 4.5 mg PO BID [facility] Last Admin: 02/24/20 10:15 Dose: 4.5 mg Documented by: Solifenacin (Vesicare -) 5 mg PO DAILY [facility] Last Admin: 02/24/20 10:15 Dose: 5 mg Documented by: Tamsulosin HCl (Flomax -) 0.4 mg PO DAILY@0830 [facility] Last Admin: 02/24/20 08:27 Dose: 0.4 mg Documented by: Verapamil HCl (Calan Sr -) 120 mg PO DAILY [facility] Last Admin: 02/24/20 10:14 Dose: 120 mg Documented by: - Objective Vital Signs: Vital Signs Temperature 98.2 F 02/24/20 07:55 Pulse Rate 91 H 02/24/20 07:55 Respiratory Rate 18 02/24/20 07:55 Blood Pressure 165/101 H 02/24/20 07:55 O2 Sat by Pulse Oximetry (%) 96 02/24/20 07:55 Constitutional: Yes: No Distress Eyes: Yes: Conjunctiva Clear Cardiovascular: Yes: Regular Rate and Rhythm, S1, S2 Respiratory: Yes: CTA Bilaterally Gastrointestinal: Yes: Normal Bowel Sounds, Soft. No: Tenderness Edema: No Labs: CBC, BMP 02/24/20 06:06 02/24/20 06:06 Assessment/Plan UTI R/O SEPSIS SECONDARY TO UTI PARKINSONISM OBS AWAIT C/S CONTINUE CEFTRIAXONE
[2020-02-24] MEDS ORDERED: NITROGLYCERIN 2% OINTMENT - 1GM PACKET TD PRN ×2 (17:55→17:59)
[2020-02-24] MEDS ORDERED: PT OWN MED DRAWER 7, Y5N ONE ×2 (21:44→21:47)
[2020-02-24] MEDS: ATORVASTATIN CA 40 MG TABLET (FP) PO SCH (21:46)
[2020-02-24] MEDS: MONTELUKAST NA 5 MG TAB.CHEW PO SCH (21:47)
[2020-02-25 07:06] LABS: BASO % 0.5 % (0-2.0); HEMATOCRIT 37.7 % (35.4-49); LYMPH % 6.5 % (8-40); MCH 26.4 pg (25.7-33.7); MCHC 31.9 g/dl (32.0-35.9); MEAN CELL VOLUME 82.8 fl (80-96); MEAN PLT VOLUME 9.9 fl (7.5-11.1); MONO % 13.5 % (3.8-10.2); NEUT % 78.5 % (42.8-82.8); PLATELET COUNT 258 K/MM3 (134-434); RBC 4.56 M/mm3 (4.00-5.60); RDW 16.5 % (11.9-15.9)
[2020-02-25] MEDS: INSULIN SLIDING SCALE (NOVOLOG) 1 VIAL SQ SCH ×3 (07:07→17:47)
[2020-02-25 07:32] LABS: ALBUMIN 2.5 g/dl (3.4-5.0); BILIRUBIN,TOTAL 0.8 mg/dL (0.2-1); BLOOD UREA NITROGEN 23.3 mg/dL (7-18); CALCIUM 9.1 mg/dL (8.5-10.1); CREATININE 1.2 mg/dL (0.55-1.3); POTASSIUM 3.9 mmol/L (3.5-5.1); TOT PROT 6.8 g/dl (6.4-8.2)
--- NOTE | 2020-02-25 08:38 | PN ---
Progress Note, Physician Chief Complaint: Patient seen and examined at the bedside, no acute events from last night, afebrile. History of Present Illness: This 79 yr old male with PMH of HTN, HLD, CAD, DM, Alzheimer's dementia with Parkinsonian features admitted via ER with an acute inability to walk and an acute UTI. - Current Medication List Current Medications: Active Medications Albuterol Sulfate (Ventolin Hfa Inhaler -) 2 puff IH Q6H PRN PRN Reason: SHORT OF BREATH/WHEEZING Aspirin (Ecotrin -) 81 mg PO DAILY [facility] Last Admin: 02/24/20 10:09 Dose: 81 mg Documented by: Atorvastatin Calcium (Lipitor -) 40 mg PO HS [facility] Last Admin: 02/24/20 21:46 Dose: 40 mg Documented by: Betamethasone Dipropionate (Diprolene 0.05% Ointment -) 1 applic TP DAILY [facility] Last Admin: 02/24/20 10:11 Dose: 1 applic Documented by: Cyanocobalamin (Vitamin B12 -) 1,000 mcg PO DAILY [facility] Last Admin: 02/24/20 10:10 Dose: 1,000 mcg Documented by: Enoxaparin Sodium (Lovenox -) 40 mg SQ DAILY [facility] Last Admin: 02/24/20 10:10 Dose: 40 mg Documented by: Folic Acid (Folic Acid -) 1 mg PO DAILY [facility] Last Admin: 02/24/20 10:09 Dose: 1 mg Documented by: Ceftriaxone Sodium 1 gm/ (Dextrose) 50 mls @ 200 mls/hr IVPB DAILY [facility]; Protocol Last Admin: 02/24/20 10:10 Dose: 200 mls/hr Documented by: Insulin Aspart (Novolog Vial Sliding Scale -) 1 vial SQ TIDAC [facility]; Protocol Last Admin: 02/25/20 07:07 Dose: 13 units Documented by: Losartan Potassium (Cozaar -) 50 mg PO BID [facility] Last Admin: 02/24/20 21:46 Dose: 50 mg Documented by: Metoprolol Succinate (Toprol Xl -) 50 mg PO BID [facility] Last Admin: 02/24/20 21:46 Dose: 50 mg Documented by: Montelukast Sodium (Singulair -) 10 mg PO HS [facility] Nitroglycerin (Nitro-Bid 2% Paste -) 1 inch TD Q6H PRN PRN Reason: HYPERTENSION Last Admin: 02/24/20 18:09 Dose: 1 inch Documented by: Pantoprazole Sodium (Protonix -) 40 mg PO DAILY [facility] Last Admin: 02/24/20 10:10 Dose: 40 mg Documented by: Rivastigmine Tartrate (Exelon) 4.5 mg PO BID [facility] Last Admin: 02/24/20 21:45 Dose: 4.5 mg Documented by: Solifenacin (Vesicare -) 5 mg PO DAILY [facility] Last Admin: 02/24/20 10:15 Dose: 5 mg Documented by: Tamsulosin HCl (Flomax -) 0.4 mg PO DAILY@0830 [facility] Last Admin: 02/24/20 08:27 Dose: 0.4 mg Documented by: Verapamil HCl (Calan Sr -) 120 mg PO DAILY [facility] Last Admin: 02/24/20 10:14 Dose: 120 mg Documented by: - Objective Vital Signs: Vital Signs Temperature 98.5 F 02/25/20 01:20 Pulse Rate 78 02/25/20 06:00 Respiratory Rate 18 02/25/20 06:00 Blood Pressure 182/93 H 02/25/20 06:00 O2 Sat by Pulse Oximetry (%) 96 02/24/20 20:41 Constitutional: Yes: Well Nourished, No Distress, Calm Eyes: Yes: Conjunctiva Clear, EOM Intact HENT: Yes: Atraumatic, Normocephalic Neck: Yes: Supple, Trachea Midline Cardiovascular: Yes: Regular Rate and Rhythm Respiratory: Yes: Regular, CTA Bilaterally Gastrointestinal: Yes: Normal Bowel Sounds, Soft ...Rectal Exam: Yes: Deferred Genitourinary: Yes: WNL Breast(s): Yes: WNL Musculoskeletal: Yes: Muscle Weakness Extremities: Yes: WNL Edema: No Peripheral Pulses WNL: Yes Integumentary: Yes: WNL Neurological: Yes: Alert, Unsteady Gait, Weakness ...Motor Strength: LLE (muscle weakness), RLE (muscle weakness) Psychiatric: Yes: Alert Labs: CBC, BMP 02/25/20 05:55 02/25/20 05:55 - ....Imaging Other: Report Reviewed (lab data reviewed) Problem List - Problems (1) Mobitz (type) II atrioventricular block Code(s): I44.1 - ATRIOVENTRICULAR BLOCK, SECOND DEGREE (2) Unable to walk Code(s): R26.2 - DIFFICULTY IN WALKING, NOT ELSEWHERE CLASSIFIED Assessment/Plan Assessment/plan: acute inability to walk, moderately severe bilateral cerebral dysfunction (OMS) most c/w Alzheimer's disease with Parkinsonian features worsening due to toxic metabolic encephalopathy (UTI, DM), HTN, HLD, CAD; IV Ceftriaxone as per ID for UTI; albuterol for dyspnea/wheezing; rivastigmine for dementia; tamsulosin for BPH; atorvastatin for HLD; SQ Lovenox and oral pantoprazole for DVT/GI prophylaxis; Losartan, Metoprolol, NTG, Verapamil and Clonidine for HTN; Vesicare for overactive bladder; vitamin b12 for vitamin b12 deficiency; physical therapy for deconditioning.
[2020-02-25] MEDS ORDERED: PT OWN MED DRAWER 7, Y5N ONE ×2 (09:36→21:00)
[2020-02-25] MEDS ORDERED: cefTRIAXone SODIUM 1 GM VIAL ONE (09:36)
[2020-02-25] MEDS ORDERED: DEXTROSE 5%-WATER - 50 ML IVPB ONE (09:37)
[2020-02-25] MEDS: TAMSULOSIN HCL 0.4 MG CAP PO SCH (09:51)
[2020-02-25] MEDS: LOSARTAN POTASSIUM 50 MG TABLET (FP) PO SCH ×2 (09:52→21:22)
[2020-02-25] MEDS: cloNIDine HCL 0.1 MG TABLET PO SCH ×2 (09:52→21:21)
[2020-02-25] MEDS: PANTOPRAZOLE 40 MG TABLET PO SCH (09:53)
[2020-02-25] MEDS: CEFTRIAXONE 1 GM in DEXTROSE 5%-WATER - 50 ML IVPB SCH (09:53)
[2020-02-25] MEDS: ASPIRIN COATED 81 MG TABLET.EC PO SCH (09:53)
[2020-02-25] MEDS: CYANOCOBALAMIN 1,000 MCG TABLET (FP) PO SCH (09:54)
[2020-02-25] MEDS: ENOXAPARIN NA (PORCINE) 40 MG/0.4 ML DISP.SYRIN SQ SCH (09:54)
[2020-02-25] MEDS: SOLIFENACIN SUCCINATE 5 MG TAB PO SCH (09:54)
[2020-02-25] MEDS: FOLIC ACID 1 MG TABLET (FP) PO SCH (09:54)
[2020-02-25] MEDS: RIVASTIGMINE TARTRATE 1.5 MG CAPSULE PO SCH ×2 (09:55→21:23)
[2020-02-25] MEDS: BETAMETHASONE DIPR 0.05% OINT 45 GM TUBE TP SCH (09:55)
[2020-02-25] MEDS: VERAPAMIL HCL 120 MG E.R. TABLET PO SCH (09:56)
--- NOTE | 2020-02-25 11:12 | PN ---
Progress Note, MANAGER MANAGING - Note Progress Note: UTI R/O SEPSIS SECONDARY TO UTI PARKINSONISM OBS Pt on reg diet/thin liquids Selected Entries 02/24/20 02/25/20 02/25/20 18:00 01:20 06:00 Breakfast Diet Tolerated Supper 50% Temperature 98.5 F Pulse Rate 74 78 Blood Pressure 150/79 182/93 H O2 Sat by Pulse Oximetry (%) 02/25/20 02/25/20 09:36 10:00 Breakfast 0 Diet Tolerated Refused Supper Temperature 99.7 F H Pulse Rate 76 Blood Pressure 191/92 H O2 Sat by Pulse 95 Oximetry (%) Laboratory Tests 02/22/20 02/24/20 02/25/20 16:40 06:06 05:55 WBC 12.8 H 11.5 H 11.[address] 02/23-Recommend diabetic, sodium controlled, dysphagia chopped diet with thin liquids. -Add Glucerna daily -Monitor need for additional supplements - Recommendations Diet Consistency: Dysphagia Minced, 1 - 2 Soft Items Medication Administration: Crushed with applesauce Liquids: Thin Liquids Supplement: Glucerna per RD
--- NOTE | 2020-02-25 12:36 | PN ---
Progress Note, Physician Chief Complaint: Pt is drowsy; does not recognize me (though pt in office for years); follows commands History of Present Illness: Mr. 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 Per the patients , the patient has been having difficulty ambulating and has been noticeably weaker. The pt was ambulating well, assisted on his own approximately 1 week ago, but has been getting more unsteady - yesterday was so weak could not ambulate on his own and today, he was unable to walk at all. There has been no fever/chills, cough, n/v, cp, sob, headache, dizziness, neck pain, bakc pain, focal numbness/tingling/weakness. Pt has hx of UTI and was on abx by his urologist recently Pt was last seen in our cardiology office 10/2018: ECHO 03/05/2018: (technically difficult study due to lung tissue interference and body habitus): normal LVEF: borderline LVH; abnormal diastolic compliance; mild MR and TR (normal RVSP). Carotid artery US: mild-moderate plaque; no stenoses. Pt's blood pressure was 160/70 mmHg initially that day; taken 10 minutes later, when pt had been sitting alone quietly, ti was 156/70 mmHg. His says BP checks at home vary, but are frequently elevated. Pt was restarted on a thiazide diuretic (chlorthalidone 25 mg daily); f/u serial BP checks, both at home and in offices, and BUN/Cr with electrolytes. Continued telmisartran (and increase dose if needed) and verapamil. Continued daily exercise; pt was walking daily. Added light weight-bearing and balance exercises. F/u fasting lipids (on atorvastatin) and glucose; TSH. Follow heart-healthy diet. Pt is seen by Dr. Scruggs recruiting assistant, for DM and hyperlipidemia. F/u with lens cutter regarding COPD. PMD: Dr. Flores and Michele Operational Meteorologist: Dr. Langford - Current Medication List Current Medications: Active Medications Albuterol Sulfate (Ventolin Hfa Inhaler -) 2 puff IH Q6H PRN PRN Reason: SHORT OF BREATH/WHEEZING Aspirin (Ecotrin -) 81 mg PO DAILY [facility] Last Admin: 02/25/20 09:53 Dose: 81 mg Documented by: Atorvastatin Calcium (Lipitor -) 40 mg PO HS [facility] Last Admin: 02/24/20 21:46 Dose: 40 mg Documented by: Betamethasone Dipropionate (Diprolene 0.05% Ointment -) 1 applic TP DAILY [facility] Last Admin: 02/25/20 09:55 Dose: 1 applic Documented by: Clonidine (Catapres -) 0.1 mg PO BID [facility] Last Admin: 02/25/20 09:52 Dose: 0.1 mg Documented by: Cyanocobalamin (Vitamin B12 -) 1,000 mcg PO DAILY [facility] Last Admin: 02/25/20 09:54 Dose: 1,000 mcg Documented by: Enoxaparin Sodium (Lovenox -) 40 mg SQ DAILY [facility] Last Admin: 02/25/20 09:54 Dose: 40 mg Documented by: Folic Acid (Folic Acid -) 1 mg PO DAILY [facility] Last Admin: 02/25/20 09:54 Dose: 1 mg Documented by: Ceftriaxone Sodium 1 gm/ (Dextrose) 50 mls @ 200 mls/hr IVPB DAILY [facility]; Protocol Last Admin: 02/25/20 09:53 Dose: 200 mls/hr Documented by: Insulin Aspart (Novolog Vial Sliding Scale -) 1 vial SQ TIDAC [facility]; Protocol Last Admin: 02/25/20 11:58 Dose: Not Given Documented by: Insulin Aspart (Novolog Mix 70/30 Vial) 5 units SQ BIDAC [facility] Losartan Potassium (Cozaar -) 50 mg PO BID [facility] Last Admin: 02/25/20 09:52 Dose: 50 mg Documented by: Metoprolol Succinate (Toprol Xl -) 50 mg PO BID [facility] Last Admin: 02/25/20 09:54 Dose: 50 mg Documented by: Montelukast Sodium (Singulair -) 10 mg PO HS [facility] Nitroglycerin (Nitro-Bid 2% Paste -) 1 inch TD Q6H PRN PRN Reason: HYPERTENSION Last Admin: 02/24/20 18:09 Dose: 1 inch Documented by: Pantoprazole Sodium (Protonix -) 40 mg PO DAILY [facility] Last Admin: 02/25/20 09:53 Dose: 40 mg Documented by: Rivastigmine Tartrate (Exelon) 4.5 mg PO BID [facility] Last Admin: 02/25/20 09:55 Dose: 4.5 mg Documented by: Solifenacin (Vesicare -) 5 mg PO DAILY [facility] Last Admin: 02/25/20 09:54 Dose: 5 mg Documented by: Tamsulosin HCl (Flomax -) 0.4 mg PO DAILY@0830 [facility] Last Admin: 02/25/20 09:51 Dose: 0.4 mg Documented by: Verapamil HCl (Calan Sr -) 120 mg PO DAILY [facility] Last Admin: 02/25/20 09:56 Dose: 120 mg Documented by: - Objective Vital Signs: Vital Signs Temperature 99.7 F H 02/25/20 10:00 Pulse Rate 76 02/25/20 10:00 Respiratory Rate 02/25/20 10:00 Blood Pressure 191/92 H 02/25/20 10:00 O2 Sat by Pulse Oximetry (%) 95 02/25/20 10:00 Constitutional: Yes: Anxious Eyes: Yes: WNL HENT: Yes: WNL Neck: Yes: WNL Cardiovascular: Yes: S1, S2, S4 Respiratory: Yes: Regular Gastrointestinal: Yes: Soft Genitourinary: No: Anuria Musculoskeletal: Yes: Muscle Weakness Extremities: Yes: Cool Edema: No Peripheral Pulses WNL: Yes Integumentary: Yes: WNL Neurological: Yes: Confusion, Weakness Psychiatric: Yes: Other (dementia) Labs: CBC, BMP 02/25/20 05:55 02/25/20 05:55 Abnormal Lab Results 02/25/20 02/25/20 05:55 05:55 WBC 11.0 H MCHC 31.9 L RDW 16.5 H Absolute Neuts (auto) 8.6 H Lymphocytes % 6.5 L D Monocytes % 13.5 H Anion Gap 5 L BUN 23.3 H Random Glucose 300 H Alkaline Phosphatase 129 H Albumin 2.5 L - ....Imaging Chest X-ray: Image Reviewed EKG: Image Reviewed Other: Image Reviewed (telemetry: no arrhythmias or significant pauses) Assessment/Plan Progressive weakness; admitted when noted unable to walk. Parkinson's Progressive (and now advanced) dementia DM: HTN HLD diastolic LV dysfunction Telemetry: no arrhythmias. fromer alcoholic, cigarettes (quit both 40 yrs ago). Pl: On antibiotics for r/o sepsis. EKG: NSR; normal study F/u ECHO for LVEF, wall motion, valve status On multiple medications (clonidine, verapamil, losartan, metoprolol) for HTN (Caution with continuing combination of clonidine and metoprolol: sudden withdrawal of either may result in rebound HTN, with additional potential complications of abrupt beta tessie withdrawal including FL, arrhythmias, etc). Discontinue telemetry
--- NOTE | 2020-02-25 14:07 | EKG ---
Test Reason : Blood Pressure : / mmHG Vent. Rate : 077 BPM Atrial Rate : 077 BPM P-R Int : 206 ms QRS Dur : 084 ms QT Int : 364 ms P-R-T Axes : 077 -39 044 degrees QTc Int : 411 ms POOR DATA QUALITY, INTERPRETATION MAY BE ADVERSELY AFFECTED NORMAL SINUS RHYTHM LEFT AXIS DEVIATION ABNORMAL ECG WHEN COMPARED WITH ECG OF 14-NOV-2012 10:14, NO SIGNIFICANT CHANGE WAS FOUND Confirmed by Blayne Mcelroy MD ([id number]) on 02/25/2020 2:07:04 PM Referred By: Confirmed By:Blayne Mcelroy MD
[2020-02-25] MEDS: INSULIN (NOVOLOG MIX 70/30) 100 UNITS/ML MDV SQ SCH (17:46)
[2020-02-25] MEDS: MONTELUKAST NA 10 MG TABLET PO SCH (21:20)
[2020-02-25] MEDS: ATORVASTATIN CA 40 MG TABLET (FP) PO SCH (21:20)
--- NOTE | 2020-02-25 21:23 | PN ---
Progress Note, Physician History of Present Illness: AWAKE, ALERT IN BED MORE ALERT NO COMPLAINTS DENIES DYSURIA/ HEMATURIA NO FEVER/ CHILLS URINE E COLI - Current Medication List Current Medications: Active Medications Albuterol Sulfate (Ventolin Hfa Inhaler -) 2 puff IH Q6H PRN PRN Reason: SHORT OF BREATH/WHEEZING Aspirin (Ecotrin -) 81 mg PO DAILY [facility] Last Admin: 02/25/20 09:53 Dose: 81 mg Documented by: Atorvastatin Calcium (Lipitor -) 40 mg PO HS [facility] Last Admin: 02/24/20 21:46 Dose: 40 mg Documented by: Betamethasone Dipropionate (Diprolene 0.05% Ointment -) 1 applic TP DAILY [facility] Last Admin: 02/25/20 09:55 Dose: 1 applic Documented by: Clonidine (Catapres -) 0.1 mg PO BID [facility] Last Admin: 02/25/20 09:52 Dose: 0.1 mg Documented by: Cyanocobalamin (Vitamin B12 -) 1,000 mcg PO DAILY [facility] Last Admin: 02/25/20 09:54 Dose: 1,000 mcg Documented by: Enoxaparin Sodium (Lovenox -) 40 mg SQ DAILY [facility] Last Admin: 02/25/20 09:54 Dose: 40 mg Documented by: Folic Acid (Folic Acid -) 1 mg PO DAILY [facility] Last Admin: 02/25/20 09:54 Dose: 1 mg Documented by: Ceftriaxone Sodium 1 gm/ (Dextrose) 50 mls @ 200 mls/hr IVPB DAILY [facility]; Protocol Last Admin: 02/25/20 09:53 Dose: 200 mls/hr Documented by: Insulin Aspart (Novolog Vial Sliding Scale -) 1 vial SQ TIDAC [facility]; Protocol Last Admin: 02/25/20 17:47 Dose: 11 units Documented by: Insulin Aspart (Novolog Mix 70/30 Vial) 5 units SQ BIDAC [facility] Last Admin: 02/25/20 17:46 Dose: 5 unit Documented by: Losartan Potassium (Cozaar -) 50 mg PO BID [facility] Last Admin: 02/25/20 09:52 Dose: 50 mg Documented by: Metoprolol Succinate (Toprol Xl -) 50 mg PO BID [facility] Last Admin: 02/25/20 09:54 Dose: 50 mg Documented by: Montelukast Sodium (Singulair -) 10 mg PO [facility] Nitroglycerin (Nitro-Bid 2% Paste -) 1 inch TD Q6H PRN PRN Reason: HYPERTENSION Last Admin: 02/24/20 18:09 Dose: 1 inch Documented by: Pantoprazole Sodium (Protonix -) 40 mg PO DAILY [facility] Last Admin: 02/25/20 09:53 Dose: 40 mg Documented by: Rivastigmine Tartrate (Exelon) 4.5 mg PO BID [facility] Last Admin: 02/25/20 09:55 Dose: 4.5 mg Documented by: Solifenacin (Vesicare -) 5 mg PO DAILY [facility] Last Admin: 02/25/20 09:54 Dose: 5 mg Documented by: Tamsulosin HCl (Flomax -) 0.4 mg PO DAILY@0830 [facility] Last Admin: 02/25/20 09:51 Dose: 0.4 mg Documented by: Verapamil HCl (Calan Sr -) 120 mg PO DAILY [facility] Last Admin: 02/25/20 09:56 Dose: 120 mg Documented by: - Objective Vital Signs: Vital Signs Temperature 98.4 F 02/25/20 21:16 Pulse Rate 71 02/25/20 21:16 Respiratory Rate 20 02/25/20 21:16 Blood Pressure 147/72 02/25/20 21:16 O2 Sat by Pulse Oximetry (%) 97 02/25/20 21:16 Constitutional: Yes: No Distress Eyes: Yes: Conjunctiva Clear Cardiovascular: Yes: Regular Rate and Rhythm, S1, S2 Respiratory: Yes: CTA Bilaterally Gastrointestinal: Yes: Normal Bowel Sounds, Soft Edema: No Labs: CBC, BMP 02/25/20 05:55 02/25/20 05:55 Assessment/Plan UTI R/O SEPSIS SECONDARY TO UTI PARKINSONISM OBS CONTINUE CEFTRIAXONE
[2020-02-26] MEDS: INSULIN SLIDING SCALE (NOVOLOG) 1 VIAL SQ SCH ×3 (06:46→16:56)
[2020-02-26] MEDS: INSULIN (NOVOLOG MIX 70/30) 100 UNITS/ML MDV SQ SCH ×2 (06:49→16:56)
[2020-02-26] MEDS ORDERED: PT OWN MED DRAWER 7, Y5N ONE ×3 (06:52→21:38)
[2020-02-26 07:12] LABS: BASO % 0.4 % (0-2.0); EOS % 4.3 % (0-4.5); HEMATOCRIT 38.6 % (35.4-49); HEMOGLOBIN 12.2 GM/dL (11.7-16.9); MCH 26.1 pg (25.7-33.7); MCHC 31.5 g/dl (32.0-35.9); MEAN CELL VOLUME 82.6 fl (80-96); MEAN PLT VOLUME 10.1 fl (7.5-11.1); MONO % 16.4 % (3.8-10.2); NEUT % 67.9 % (42.8-82.8); PLATELET COUNT 272 K/MM3 (134-434); RBC 4.67 M/mm3 (4.00-5.60); RDW 16.1 % (11.9-15.9); WHITE BLOOD COUNT 9.9 K/mm3 (4.0-10.0)
[2020-02-26 07:42] LABS: BLOOD UREA NITROGEN 30.5 mg/dL (7-18); CREATININE 1.4 mg/dL (0.55-1.3); POTASSIUM 3.9 mmol/L (3.5-5.1)
--- NOTE | 2020-02-26 08:03 | PN ---
Progress Note, Physician Chief Complaint: Patient seen and examined at the bedside, no acute events from last night, afebrile. History of Present Illness: This 79 yr old male with PMH of Alzheimer's dementia with Parkinsonian features, HTN, HLD, CAD, DM admitted via ER with an acute urosepsis due to UTI, and inability to walk. - Current Medication List Current Medications: Active Medications Albuterol Sulfate (Ventolin Hfa Inhaler -) 2 puff IH Q6H PRN PRN Reason: SHORT OF BREATH/WHEEZING Aspirin (Ecotrin -) 81 mg PO DAILY [facility] Last Admin: 02/25/20 09:53 Dose: 81 mg Documented by: Atorvastatin Calcium (Lipitor -) 40 mg PO HS [facility] Last Admin: 02/25/20 21:20 Dose: 40 mg Documented by: Betamethasone Dipropionate (Diprolene 0.05% Ointment -) 1 applic TP DAILY [facility] Last Admin: 02/25/20 09:55 Dose: 1 applic Documented by: Clonidine (Catapres -) 0.1 mg PO BID [facility] Last Admin: 02/25/20 21:21 Dose: 0.1 mg Documented by: Cyanocobalamin (Vitamin B12 -) 1,000 mcg PO DAILY [facility] Last Admin: 02/25/20 09:54 Dose: 1,000 mcg Documented by: Enoxaparin Sodium (Lovenox -) 40 mg SQ DAILY [facility] Last Admin: 02/25/20 09:54 Dose: 40 mg Documented by: Folic Acid (Folic Acid -) 1 mg PO DAILY [facility] Last Admin: 02/25/20 09:54 Dose: 1 mg Documented by: Ceftriaxone Sodium 1 gm/ (Dextrose) 50 mls @ 200 mls/hr IVPB DAILY [facility]; Protocol Last Admin: 02/25/20 09:53 Dose: 200 mls/hr Documented by: Insulin Aspart (Novolog Vial Sliding Scale -) 1 vial SQ TIDAC [facility]; Protocol Last Admin: 02/26/20 06:46 Dose: Not Given Documented by: Insulin Aspart (Novolog Mix 70/30 Vial) 5 units SQ BIDAC [facility] Last Admin: 02/26/20 06:49 Dose: 5 unit Documented by: Losartan Potassium (Cozaar -) 50 mg PO BID [facility] Last Admin: 02/25/20 21:22 Dose: 50 mg Documented by: Metoprolol Succinate (Toprol Xl -) 50 mg PO BID [facility] Last Admin: 02/25/20 21:20 Dose: 50 mg Documented by: Montelukast Sodium (Singulair -) 10 mg PO HS [facility] Last Admin: 02/25/20 21:20 Dose: 10 mg Documented by: Nitroglycerin (Nitro-Bid 2% Paste -) 1 inch TD Q6H PRN PRN Reason: HYPERTENSION Last Admin: 02/24/20 18:09 Dose: 1 inch Documented by: Pantoprazole Sodium (Protonix -) 40 mg PO DAILY [facility] Last Admin: 02/25/20 09:53 Dose: 40 mg Documented by: Rivastigmine Tartrate (Exelon) 4.5 mg PO BID [facility] Last Admin: 02/25/20 21:23 Dose: 4.5 mg Documented by: Solifenacin (Vesicare -) 5 mg PO DAILY [facility] Last Admin: 02/25/20 09:54 Dose: 5 mg Documented by: Tamsulosin HCl (Flomax -) 0.4 mg PO DAILY@0830 [facility] Last Admin: 02/25/20 09:51 Dose: 0.4 mg Documented by: Verapamil HCl (Calan Sr -) 120 mg PO DAILY [facility] Last Admin: 02/25/20 09:56 Dose: 120 mg Documented by: - Objective Vital Signs: Vital Signs Temperature 98 F 02/26/20 05:31 Pulse Rate 763 H 02/26/20 05:31 Respiratory Rate 18 02/26/20 05:31 Blood Pressure 126/80 02/26/20 05:31 O2 Sat by Pulse Oximetry (%) 97 02/25/20 21:16 Constitutional: Yes: Well Nourished, No Distress, Calm Eyes: Yes: Conjunctiva Clear, EOM Intact HENT: Yes: Atraumatic, Normocephalic Neck: Yes: Supple, Trachea Midline Cardiovascular: Yes: Regular Rate and Rhythm Respiratory: Yes: Regular, CTA Bilaterally Gastrointestinal: Yes: Normal Bowel Sounds, Soft ...Rectal Exam: Yes: Deferred Genitourinary: Yes: WNL Breast(s): Yes: WNL Musculoskeletal: Yes: Muscle Weakness Extremities: Yes: WNL Edema: No Peripheral Pulses WNL: Yes Integumentary: Yes: WNL Neurological: Yes: Alert, Confusion, Unsteady Gait, Weakness ...Motor Strength: LLE (muscle weakness), RLE (muscle weakness) Psychiatric: Yes: Alert Labs: CBC, BMP 02/26/20 06:06 02/26/20 06:06 - ....Imaging Other: Report Reviewed (lab data reviewed) Problem List - Problems (1) Mobitz (type) II atrioventricular block Code(s): I44.1 - ATRIOVENTRICULAR BLOCK, SECOND DEGREE (2) Unable to walk Code(s): R26.2 - DIFFICULTY IN WALKING, NOT ELSEWHERE CLASSIFIED Assessment/Plan Assessment/plan: acute inability to walk, acute E Coli UTI, acute urosepsis due to UTI, acute hypernatremia, moderately severe bilateral cerebral dysfunction (OMS) most c/w Alzheimer's disease with Parkinsonian features worsening due to toxic metabolic encephalopathy (UTI, hyperglycemia), HTN, HLD, CAD, DM; IV fluids for hypernatremia; IV Ceftriaxone as per ID for UTI; rivastigmine for dementia; tamsulosin for BPH; SQ Lovenox and oral pantoprazole for DVT/GI prophylaxis; atorvastatin for HLD; clonidine, losartan, metoprolol, NTG and verapamil for HTN; Vesicare for overactive bladder; Novolog 70/30 mix and sliding scale regular insulin coverage for DM; physical therapy for deconditioning.
[2020-02-26] MEDS ORDERED: DEXTROSE 5%-WATER - 1,000 ML IV SCH ×2 (08:45→19:08)
[2020-02-26] MEDS ORDERED: cefTRIAXone SODIUM 1 GM VIAL ONE (09:23)
[2020-02-26] MEDS ORDERED: DEXTROSE 5%-WATER - 50 ML IVPB ONE (09:23)
[2020-02-26] MEDS: PANTOPRAZOLE 40 MG TABLET PO SCH (10:23)
[2020-02-26] MEDS: cloNIDine HCL 0.1 MG TABLET PO SCH ×2 (10:23→21:53)
[2020-02-26] MEDS: TAMSULOSIN HCL 0.4 MG CAP PO SCH (10:23)
[2020-02-26] MEDS: ASPIRIN COATED 81 MG TABLET.EC PO SCH (10:23)
[2020-02-26] MEDS: ENOXAPARIN NA (PORCINE) 40 MG/0.4 ML DISP.SYRIN SQ SCH (10:23)
[2020-02-26] MEDS: CEFTRIAXONE 1 GM in DEXTROSE 5%-WATER - 50 ML IVPB SCH (10:23)
[2020-02-26] MEDS: CYANOCOBALAMIN 1,000 MCG TABLET (FP) PO SCH (10:23)
[2020-02-26] MEDS: FOLIC ACID 1 MG TABLET (FP) PO SCH (10:23)
[2020-02-26] MEDS: LOSARTAN POTASSIUM 50 MG TABLET (FP) PO SCH ×2 (10:23→21:54)
[2020-02-26] MEDS: VERAPAMIL HCL 120 MG E.R. TABLET PO SCH (10:25)
[2020-02-26] MEDS: SOLIFENACIN SUCCINATE 5 MG TAB PO SCH (10:26)
[2020-02-26] MEDS: BETAMETHASONE DIPR 0.05% OINT 45 GM TUBE TP SCH (10:26)
[2020-02-26] MEDS: RIVASTIGMINE TARTRATE 1.5 MG CAPSULE PO SCH ×2 (10:26→21:55)
--- NOTE | 2020-02-26 13:12 | PN ---
Progress Note, Physician History of Present Illness: Mr. 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 Per the patients , the patient has been having difficulty ambulating and has been noticeably weaker. The pt was ambulating well, assisted on his own approximately 1 week ago, but has been getting more unsteady - yesterday was so weak could not ambulate on his own and today, he was unable to walk at all. There has been no fever/chills, cough, n/v, cp, sob, headache, dizziness, neck pain, bakc pain, focal numbness/tingling/weakness. Pt has hx of UTI and was on abx by his urologist recently - Current Medication List Current Medications: Active Medications Albuterol Sulfate (Ventolin Hfa Inhaler -) 2 puff IH Q6H PRN PRN Reason: SHORT OF BREATH/WHEEZING Aspirin (Ecotrin -) 81 mg PO DAILY [facility] Last Admin: 02/26/20 10:23 Dose: 81 mg Documented by: Atorvastatin Calcium (Lipitor -) 40 mg PO HS [facility] Last Admin: 02/25/20 21:20 Dose: 40 mg Documented by: Betamethasone Dipropionate (Diprolene 0.05% Ointment -) 1 applic TP DAILY [facility] Last Admin: 02/26/20 10:26 Dose: 1 applic Documented by: Clonidine (Catapres -) 0.1 mg PO BID [facility] Last Admin: 02/26/20 10:23 Dose: 0.1 mg Documented by: Cyanocobalamin (Vitamin B12 -) 1,000 mcg PO DAILY [facility] Last Admin: 02/26/20 10:23 Dose: 1,000 mcg Documented by: Enoxaparin Sodium (Lovenox -) 40 mg SQ DAILY [facility] Last Admin: 02/26/20 10:23 Dose: 40 mg Documented by: Folic Acid (Folic Acid -) 1 mg PO DAILY [facility] Last Admin: 02/26/20 10:23 Dose: 1 mg Documented by: Ceftriaxone Sodium 1 gm/ (Dextrose) 50 mls @ 200 mls/hr IVPB DAILY [facility]; Protocol Last Admin: 02/26/20 10:23 Dose: 200 mls/hr Documented by: Dextrose (D5w -) 1,000 mls @ 75 mls/hr IV .[id number] [facility] Last Admin: 02/26/20 12:03 Dose: 75 mls/hr Documented by: Insulin Aspart (Novolog Vial Sliding Scale -) 1 vial SQ TIDAC [facility]; Protocol Last Admin: 02/26/20 12:03 Dose: Not Given Documented by: Insulin Aspart (Novolog Mix 70/30 Vial) 5 units SQ BIDAC [facility] Last Admin: 02/26/20 06:49 Dose: 5 unit Documented by: Losartan Potassium (Cozaar -) 50 mg PO BID [facility] Last Admin: 02/26/20 10:23 Dose: 50 mg Documented by: Metoprolol Succinate (Toprol Xl -) 50 mg PO BID [facility] Last Admin: 02/26/20 10:23 Dose: 50 mg Documented by: Montelukast Sodium (Singulair -) 10 mg PO HS [facility] Last Admin: 02/25/20 21:20 Dose: 10 mg Documented by: Nitroglycerin (Nitro-Bid 2% Paste -) 1 inch TD Q6H PRN PRN Reason: HYPERTENSION Last Admin: 02/24/20 18:09 Dose: 1 inch Documented by: Pantoprazole Sodium (Protonix -) 40 mg PO DAILY [facility] Last Admin: 02/26/20 10:23 Dose: 40 mg Documented by: Rivastigmine Tartrate (Exelon) 4.5 mg PO BID [facility] Last Admin: 02/26/20 10:26 Dose: 4.5 mg Documented by: Solifenacin (Vesicare -) 5 mg PO DAILY [facility] Last Admin: 02/26/20 10:26 Dose: 5 mg Documented by: Tamsulosin HCl (Flomax -) 0.4 mg PO DAILY@0830 [facility] Last Admin: 02/26/20 10:23 Dose: 0.4 mg Documented by: Verapamil HCl (Calan Sr -) 120 mg PO DAILY [facility] Last Admin: 02/26/20 10:25 Dose: 120 mg Documented by: - Objective Vital Signs: Vital Signs Temperature 97.9 F 02/26/20 10:00 Pulse Rate 61 02/26/20 10:00 Respiratory Rate 18 02/26/20 10:00 Blood Pressure 140/71 02/26/20 10:00 O2 Sat by Pulse Oximetry (%) 95 02/26/20 09:00 Eyes: Yes: WNL, Conjunctiva Clear, EOM Intact HENT: Yes: WNL, Atraumatic, Normocephalic Neck: Yes: WNL, Supple, Trachea Midline Cardiovascular: Yes: WNL, Regular Rate and Rhythm Respiratory: Yes: WNL, Regular, CTA Bilaterally Gastrointestinal: Yes: WNL, Normal Bowel Sounds Genitourinary: Yes: WNL Musculoskeletal: Yes: WNL Extremities: Yes: WNL Edema: No Integumentary: Yes: WNL Labs: CBC, BMP 02/26/20 06:06 02/26/20 06:06 Assessment/Plan Progressive weakness; admitted when noted unable to walk. Parkinson's Progressive (and now advanced) dementia DM Progressive weakness; admitted when noted unable to walk. Parkinson's Progressive (and now advanced) dementia DM: HTN HLD diastolic LV dysfunction Telemetry: no arrhythmias. fromer alcoholic, cigarettes (quit both 40 yrs ago). Pl: On antibiotics for r/o sepsis. EKG: NSR; normal study F/u ECHO for LVEF, wall motion, valve status On multiple medications (clonidine, verapamil, losartan, metoprolol) for HTN (Caution with continuing combination of clonidine and metoprolol: sudden withdrawal of either may result in rebound HTN, with additional potential complications of abrupt beta tessie withdrawal including ID, arrhythmias, etc). Discontinue telemetry
--- NOTE | 2020-02-26 13:35 | PN ---
Progress Note, [employer] - Note Progress Note: Selected Entries 02/25/20 02/25/20 02/25/20 09:36 14:00 18:00 Breakfast 0 Lunch 25% Supper 50% Temperature Pulse Rate Blood Pressure 02/26/20 02/26/20 02/26/20 02:00 05:31 10:00 Breakfast Lunch Supper Temperature 98.1 F 98 F 97.9 F Pulse Rate 63 763 H 61 Blood Pressure 151/72 126/80 140/71 Laboratory Tests 02/26/20 06:06 WBC 9.9 Oral holding with poor po intake. Drinking Glucerna Suggest downgrade to puree/thin liquid, Glucerna, Magic cup, alternate puree with liquids, frequent cues to swallow
[2020-02-26] MEDS ORDERED: ALBUTEROL SO4 2.5/IPRATROPIUM 0.5 INH SOL 3 ML VIAL.NEB. NEB PRN (18:55)
[2020-02-26] MEDS: MONTELUKAST NA 10 MG TABLET PO SCH (21:54)
[2020-02-26] MEDS: ATORVASTATIN CA 40 MG TABLET (FP) PO SCH (21:54)
[2020-02-27] MEDS: INSULIN SLIDING SCALE (NOVOLOG) 1 VIAL SQ SCH ×3 (06:50→17:11)
[2020-02-27] MEDS: INSULIN (NOVOLOG MIX 70/30) 100 UNITS/ML MDV SQ SCH ×2 (06:54→17:10)
[2020-02-27 08:00] LABS: BASO % 0.8 % (0-2.0); EOS % 5.7 % (0-4.5); HEMATOCRIT 38.4 % (35.4-49); HEMOGLOBIN 12.2 GM/dL (11.7-16.9); LYMPH % 10.5 % (8-40); MCH 26.3 pg (25.7-33.7); MCHC 31.9 g/dl (32.0-35.9); MEAN CELL VOLUME 82.4 fl (80-96); MONO % 13.3 % (3.8-10.2); NEUT % 69.7 % (42.8-82.8); PLATELET COUNT 263 K/MM3 (134-434); RBC 4.66 M/mm3 (4.00-5.60); RDW 15.9 % (11.9-15.9); WHITE BLOOD COUNT 9.2 K/mm3 (4.0-10.0)
[2020-02-27] MEDS: TAMSULOSIN HCL 0.4 MG CAP PO SCH (08:32)
[2020-02-27 08:45] LABS: ALBUMIN 2.3 g/dl (3.4-5.0); BILIRUBIN,TOTAL 1.2 mg/dL (0.2-1); BLOOD UREA NITROGEN 23.7 mg/dL (7-18); CALCIUM 9.1 mg/dL (8.5-10.1); CREATININE 1.2 mg/dL (0.55-1.3); TOT PROT 6.7 g/dl (6.4-8.2)
[2020-02-27] MEDS ORDERED: DEXTROSE 5%-WATER - 50 ML IVPB ONE (09:22)
[2020-02-27] MEDS ORDERED: PT OWN MED DRAWER 7, Y5N ONE ×2 (09:22→21:52)
[2020-02-27] MEDS ORDERED: cefTRIAXone SODIUM 1 GM VIAL ONE (09:22)
[2020-02-27] MEDS: cloNIDine HCL 0.1 MG TABLET PO SCH ×2 (10:19→22:46)
[2020-02-27] MEDS: FOLIC ACID 1 MG TABLET (FP) PO SCH (10:19)
[2020-02-27] MEDS: ENOXAPARIN NA (PORCINE) 40 MG/0.4 ML DISP.SYRIN SQ SCH (10:19)
[2020-02-27] MEDS: CEFTRIAXONE 1 GM in DEXTROSE 5%-WATER - 50 ML IVPB SCH (10:19)
[2020-02-27] MEDS: CYANOCOBALAMIN 1,000 MCG TABLET (FP) PO SCH (10:19)
[2020-02-27] MEDS: ASPIRIN COATED 81 MG TABLET.EC PO SCH (10:19)
[2020-02-27] MEDS: PANTOPRAZOLE 40 MG TABLET PO SCH (10:19)
[2020-02-27] MEDS: LOSARTAN POTASSIUM 50 MG TABLET (FP) PO SCH ×2 (10:20→22:46)
[2020-02-27] MEDS: RIVASTIGMINE TARTRATE 1.5 MG CAPSULE PO SCH ×2 (10:20→22:46)
[2020-02-27] MEDS: VERAPAMIL HCL 120 MG E.R. TABLET PO SCH (10:20)
[2020-02-27] MEDS: BETAMETHASONE DIPR 0.05% OINT 45 GM TUBE TP SCH (10:20)
--- NOTE | 2020-02-27 10:26 | PN ---
Progress Note, [employer] - Note Progress Note: Selected Entries 02/26/20 02/27/20 02/27/20 23:00 02:00 06:00 Supper 50% Temperature 98 F 98.1 F Pulse Rate 87 60 Blood Pressure 156/84 163/76 Laboratory Tests 02/27/20 07:10 WBC 9.2
[2020-02-27] MEDS: SOLIFENACIN SUCCINATE 5 MG TAB PO SCH (11:42)
[2020-02-27] MEDS ORDERED: INSULIN (NOVOLOG) ASPART 100 UNITS/ML 10ML VIAL ONE (11:49)
--- NOTE | 2020-02-27 14:20 | PN ---
Progress Note, Physician Chief Complaint: Patient seen and examined at the bedside, no acute events from last night, afebrile. History of Present Illness: This 79 yr old male with PMH of Alzheimer's disease with Parkinsonian features, HTN, HLD, CAD, DM admitted via ER with an acute inability to walk and an acute UTI. - Current Medication List Current Medications: Active Medications Albuterol Sulfate (Ventolin Hfa Inhaler -) 2 puff IH Q6H PRN PRN Reason: SHORT OF BREATH/WHEEZING Albuterol/Ipratropium (Duoneb -) 1 amp NEB Q8H PRN PRN Reason: SHORT OF BREATH/WHEEZING Aspirin (Ecotrin -) 81 mg PO DAILY [facility] Last Admin: 02/27/20 10:19 Dose: 81 mg Documented by: Atorvastatin Calcium (Lipitor -) 40 mg PO HS [facility] Last Admin: 02/26/20 21:54 Dose: 40 mg Documented by: Betamethasone Dipropionate (Diprolene 0.05% Ointment -) 1 applic TP DAILY [facility] Last Admin: 02/27/20 10:20 Dose: 1 applic Documented by: Clonidine (Catapres -) 0.1 mg PO BID [facility] Last Admin: 02/27/20 10:19 Dose: 0.1 mg Documented by: Cyanocobalamin (Vitamin B12 -) 1,000 mcg PO DAILY [facility] Last Admin: 02/27/20 10:19 Dose: 1,000 mcg Documented by: Enoxaparin Sodium (Lovenox -) 40 mg SQ DAILY [facility] Last Admin: 02/27/20 10:19 Dose: 40 mg Documented by: Folic Acid (Folic Acid -) 1 mg PO DAILY [facility] Last Admin: 02/27/20 10:19 Dose: 1 mg Documented by: Ceftriaxone Sodium 1 gm/ (Dextrose) 50 mls @ 200 mls/hr IVPB DAILY [facility]; Protocol Last Admin: 02/27/20 10:19 Dose: 200 mls/hr Documented by: Dextrose (D5w -) 1,000 mls @ 50 mls/hr IV .[id number] [facility] Insulin Aspart (Novolog Mix 70/30 Vial) 5 units SQ BIDAC [facility] Last Admin: 02/27/20 06:54 Dose: 5 unit Documented by: Insulin Aspart (Novolog Vial Sliding Scale -) 1 vial SQ TIDAC [facility]; Protocol Last Admin: 02/27/20 11:50 Dose: 4 units Documented by: Losartan Potassium (Cozaar -) 50 mg PO BID [facility] Last Admin: 02/27/20 10:20 Dose: 50 mg Documented by: Metoprolol Succinate (Toprol Xl -) 50 mg PO BID [facility] Last Admin: 02/27/20 10:19 Dose: 50 mg Documented by: Montelukast Sodium (Singulair -) 10 mg PO HS [facility] Last Admin: 02/26/20 21:54 Dose: 10 mg Documented by: Nitroglycerin (Nitro-Bid 2% Paste -) 1 inch TD Q6H PRN PRN Reason: HYPERTENSION Last Admin: 02/24/20 18:09 Dose: 1 inch Documented by: Pantoprazole Sodium (Protonix -) 40 mg PO DAILY [facility] Last Admin: 02/27/20 10:19 Dose: 40 mg Documented by: Rivastigmine Tartrate (Exelon) 4.5 mg PO BID [facility] Last Admin: 02/27/20 10:20 Dose: 4.5 mg Documented by: Solifenacin (Vesicare -) 5 mg PO DAILY [facility] Last Admin: 02/27/20 11:42 Dose: 5 mg Documented by: Tamsulosin HCl (Flomax -) 0.4 mg PO DAILY@0830 [facility] Last Admin: 02/27/20 08:32 Dose: 0.4 mg Documented by: Verapamil HCl (Calan Sr -) 120 mg PO DAILY [facility] Last Admin: 02/27/20 10:20 Dose: 120 mg Documented by: - Objective Vital Signs: Vital Signs Temperature 97.8 F 02/27/20 10:00 Pulse Rate 63 02/27/20 10:00 Respiratory Rate 20 02/27/20 10:00 Blood Pressure 177/83 H 02/27/20 10:00 O2 Sat by Pulse Oximetry (%) 99 02/27/20 09:00 Constitutional: Yes: Well Nourished, No Distress, Calm Eyes: Yes: Conjunctiva Clear, EOM Intact HENT: Yes: Atraumatic, Normocephalic Neck: Yes: Supple, Trachea Midline Cardiovascular: Yes: Regular Rate and Rhythm Respiratory: Yes: Regular, CTA Bilaterally Gastrointestinal: Yes: Normal Bowel Sounds, Soft ...Rectal Exam: Yes: Deferred Genitourinary: Yes: WNL Breast(s): Yes: WNL Musculoskeletal: Yes: Muscle Weakness Extremities: Yes: WNL Edema: No Peripheral Pulses WNL: Yes Integumentary: Yes: WNL Neurological: Yes: Alert, Unsteady Gait, Weakness ...Motor Strength: LLE (muscle weakness), RLE (muscle weakness) Psychiatric: Yes: Alert Labs: CBC, BMP 02/27/20 07:10 02/27/20 07:10 - ....Imaging Other: Report Reviewed (lab data reviewed) Problem List - Problems (1) Mobitz (type) II atrioventricular block Code(s): I44.1 - ATRIOVENTRICULAR BLOCK, SECOND DEGREE (2) Unable to walk Code(s): R26.2 - DIFFICULTY IN WALKING, NOT ELSEWHERE CLASSIFIED Assessment/Plan Assessment/plan: acute inabilty to walk, IV Ceftriaxone as per ID for acute urosepsis due to E Coli UTI; rivastigmine for dementia; tamsulosin for BPH; SQ Lovenox and oral pantoprazole for DVT/GI prophylaxis; clonidine, metoprolol, losartan, NTG and verapamil for HTN; atorvastatin for HLD; physical therapy for deconditioning; duoneb for dyspnea/wheezing.
[2020-02-27] MEDS: ATORVASTATIN CA 40 MG TABLET (FP) PO SCH (22:45)
[2020-02-27] MEDS: MONTELUKAST NA 10 MG TABLET PO SCH (22:46)
--- NOTE | 2020-02-28 06:37 | PN ---
Progress Note, Physician Chief Complaint: Pt is now alert; still does not recognize me by name. Pt's is at bedside. History of Present Illness: Mr. 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 Per the patients , the patient has been having difficulty ambulating and has been noticeably weaker. The pt was ambulating well, assisted on his own approximately 1 week ago, but has been getting more unsteady - yesterday was so weak could not ambulate on his own and today, he was unable to walk at all. There has been no fever/chills, cough, n/v, cp, sob, headache, dizziness, neck pain, bakc pain, focal numbness/tingling/weakness. Pt has hx of UTI and was on abx by his urologist recently Pt was last seen in our cardiology office 10/2018: ECHO 03/05/2018: (technically difficult study due to lung tissue interference and body habitus): normal LVEF: borderline LVH; abnormal diastolic compliance; mild MR and TR (normal RVSP). Carotid artery US: mild-moderate plaque; no stenoses. Pt's blood pressure was 160/70 mmHg initially that day; taken 10 minutes later, when pt had been sitting alone quietly, ti was 156/70 mmHg. His says BP checks at home vary, but are frequently elevated. Pt was restarted on a thiazide diuretic (chlorthalidone 25 mg daily); f/u serial BP checks, both at home and in offices, and BUN/Cr with electrolytes. Continued telmisartran (and increase dose if needed) and verapamil. Continued daily exercise; pt was walking daily. Added light weight-bearing and balance exercises. F/u fasting lipids (on atorvastatin) and glucose; TSH. Follow heart-healthy diet. Pt is seen by Dr. Scruggs sound designer, for DM and hyperlipidemia. 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 PMD: Dr. Flores and Michele Machine Stapler: Dr. Langford - Current Medication List Current Medications: Active Medications Albuterol Sulfate (Ventolin Hfa Inhaler -) 2 puff IH Q6H PRN PRN Reason: SHORT OF BREATH/WHEEZING Albuterol/Ipratropium (Duoneb -) 1 amp NEB Q8H PRN PRN Reason: SHORT OF BREATH/WHEEZING Aspirin (Ecotrin -) 81 mg PO DAILY [facility] Last Admin: 02/27/20 10:19 Dose: 81 mg Documented by: Atorvastatin Calcium (Lipitor -) 40 mg PO HS [facility] Last Admin: 02/27/20 22:45 Dose: 40 mg Documented by: Betamethasone Dipropionate (Diprolene 0.05% Ointment -) 1 applic TP DAILY [facility] Last Admin: 02/27/20 10:20 Dose: 1 applic Documented by: Clonidine (Catapres -) 0.1 mg PO BID [facility] Last Admin: 02/27/20 22:46 Dose: 0.1 mg Documented by: Cyanocobalamin (Vitamin B12 -) 1,000 mcg PO DAILY [facility] Last Admin: 02/27/20 10:19 Dose: 1,000 mcg Documented by: Enoxaparin Sodium (Lovenox -) 40 mg SQ DAILY [facility] Last Admin: 02/27/20 10:19 Dose: 40 mg Documented by: Folic Acid (Folic Acid -) 1 mg PO DAILY [facility] Last Admin: 02/27/20 10:19 Dose: 1 mg Documented by: Ceftriaxone Sodium 1 gm/ (Dextrose) 50 mls @ 200 mls/hr IVPB DAILY [facility]; Protoc ol Last Admin: 02/27/20 10:19 Dose: 200 mls/hr Documented by: Dextrose (D5w -) 1,000 mls @ 50 mls/hr IV .[id number] [facility] Insulin Aspart (Novolog Mix 70/30 Vial) 5 units SQ BIDAC [facility] Last Admin: 02/27/20 17:10 Dose: 5 unit Documented by: Insulin Aspart (Novolog Vial Sliding Scale -) 1 vial SQ TIDAC [facility]; Protocol Last Admin: 02/27/20 17:11 Dose: Not Given Documented by: Losartan Potassium (Cozaar -) 50 mg PO BID [facility] Last Admin: 02/27/20 22:46 Dose: 50 mg Documented by: Metoprolol Succinate (Toprol Xl -) 50 mg PO BID [facility] Last Admin: 02/27/20 22:45 Dose: 50 mg Documented by: Montelukast Sodium (Singulair -) 10 mg PO HS [facility] Last Admin: 02/27/20 22:46 Dose: 10 mg Documented by: Nitroglycerin (Nitro-Bid 2% Paste -) 1 inch TD Q6H PRN PRN Reason: HYPERTENSION Last Admin: 02/24/20 18:09 Dose: 1 inch Documented by: Pantoprazole Sodium (Protonix -) 40 mg PO DAILY [facility] Last Admin: 02/27/20 10:19 Dose: 40 mg Documented by: Rivastigmine Tartrate (Exelon) 4.5 mg PO BID [facility] Last Admin: 02/27/20 22:46 Dose: 4.5 mg Documented by: Solifenacin (Vesicare -) 5 mg PO DAILY [facility] Last Admin: 02/27/20 11:42 Dose: 5 mg Documented by: Tamsulosin HCl (Flomax -) 0.4 mg PO DAILY@0830 [facility] Last Admin: 02/27/20 08:32 Dose: 0.4 mg Documented by: Verapamil HCl (Calan Sr -) 120 mg PO DAILY [facility] Last Admin: 02/27/20 10:20 Dose: 120 mg Documented by: - Objective Vital Signs: Vital Signs Temperature 97.9 F 02/28/20 01:38 Pulse Rate 52 L 02/28/20 01:38 Respiratory Rate 20 02/28/20 01:38 Blood Pressure 145/71 02/28/20 01:38 O2 Sat by Pulse Oximetry (%) 95 02/27/20 22:00 Constitutional: Yes: Calm Eyes: Yes: WNL HENT: Yes: WNL Cardiovascular: Yes: S1, S2, S4 Respiratory: Yes: Regular Labs: CBC, BMP 02/27/20 07:10 02/27/20 07:10 Assessment/Plan Progressive weakness; admitted when noted unable to walk. Parkinson's Progressive (and now advanced) dementia DM: HTN, at times uncontrolled HLD diastolic LV dysfunction with MR on 2018 ECHO fromer alcoholic, cigarettes (quit both 40 yrs ago). Pl: On antibiotics for r/o sepsis. EKG: NSR; normal study; no longer in Mobitz II Type I AVB F/u ECHO for LVEF, wall motion, valve status; transient Mobitz II Type I AVB On multiple medications (clonidine, verapamil, losartan, metoprolol) for HTN; f/u BP serially (Caution with continuing combination of clonidine and metoprolol: sudden withdrawal of either may result in rebound HTN, with additional potential complications of abrupt beta tessie withdrawal including PR, arrhythmias, etc. Consider gradual withdrawal of clonidine, followed later by withdrawal of beta blockers/nondihydropyridine calcium channel blockers, given transient Mobitz AVB, continuance of losartan, and use of alternative antihypertensive classes, e.g., hydralazine, amlodipine).
[2020-02-28] MEDS: INSULIN (NOVOLOG MIX 70/30) 100 UNITS/ML MDV SQ SCH ×2 (06:49→17:04)
[2020-02-28] MEDS: INSULIN SLIDING SCALE (NOVOLOG) 1 VIAL SQ SCH ×3 (06:49→17:05)
[2020-02-28 07:33] LABS: BASO % 0.7 % (0-2.0); EOS % 6.9 % (0-4.5); HEMATOCRIT 39.8 % (35.4-49); HEMOGLOBIN 12.7 GM/dL (11.7-16.9); LYMPH % 13.2 % (8-40); MCH 26.4 pg (25.7-33.7); MEAN CELL VOLUME 82.5 fl (80-96); MEAN PLT VOLUME 10.4 fl (7.5-11.1); MONO % 15.8 % (3.8-10.2); NEUT % 63.4 % (42.8-82.8); PLATELET COUNT 257 K/MM3 (134-434); RBC 4.82 M/mm3 (4.00-5.60); RDW 15.8 % (11.9-15.9); WHITE BLOOD COUNT 7.6 K/mm3 (4.0-10.0)
[2020-02-28 07:57] LABS: ALBUMIN 2.2 g/dl (3.4-5.0); BILIRUBIN,TOTAL 0.8 mg/dL (0.2-1); CALCIUM 8.4 mg/dL (8.5-10.1); TOT PROT 6.3 g/dl (6.4-8.2)
--- NOTE | 2020-02-28 08:21 | PN ---
Progress Note, Physician Chief Complaint: Patient seen and examined at the bedside, no acute events from last night, afebrile. History of Present Illness: This 79 yr old male with PMH of HTN, HLD, CAD, DM, Alzheimer's disease with Parkinsonian features admitted via ER with an acute inability to walk and an acute E Coli urosepsis due to UTI. - Current Medication List Current Medications: Active Medications Albuterol Sulfate (Ventolin Hfa Inhaler -) 2 puff IH Q6H PRN PRN Reason: SHORT OF BREATH/WHEEZING Albuterol/Ipratropium (Duoneb -) 1 amp NEB Q8H PRN PRN Reason: SHORT OF BREATH/WHEEZING Aspirin (Ecotrin -) 81 mg PO DAILY [facility] Last Admin: 02/27/20 10:19 Dose: 81 mg Documented by: Atorvastatin Calcium (Lipitor -) 40 mg PO HS [facility] Last Admin: 02/27/20 22:45 Dose: 40 mg Documented by: Betamethasone Dipropionate (Diprolene 0.05% Ointment -) 1 applic TP DAILY [facility] Last Admin: 02/27/20 10:20 Dose: 1 applic Documented by: Clonidine (Catapres -) 0.1 mg PO BID [facility] Last Admin: 02/27/20 22:46 Dose: 0.1 mg Documented by: Cyanocobalamin (Vitamin B12 -) 1,000 mcg PO DAILY [facility] Last Admin: 02/27/20 10:19 Dose: 1,000 mcg Documented by: Enoxaparin Sodium (Lovenox -) 40 mg SQ DAILY [facility] Last Admin: 02/27/20 10:19 Dose: 40 mg Documented by: Folic Acid (Folic Acid -) 1 mg PO DAILY [facility] Last Admin: 02/27/20 10:19 Dose: 1 mg Documented by: Ceftriaxone Sodium 1 gm/ (Dextrose) 50 mls @ 200 mls/hr IVPB DAILY [facility]; Protocol Last Admin: 02/27/20 10:19 Dose: 200 mls/hr Documented by: Dextrose (D5w -) 1,000 mls @ 50 mls/hr IV .[id number] [facility] Insulin Aspart (Novolog Mix 70/30 Vial) 5 units SQ BIDAC [facility] Last Admin: 02/28/20 06:49 Dose: 5 unit Documented by: Insulin Aspart (Novolog Vial Sliding Scale -) 1 vial SQ TIDAC [facility]; Protocol Last Admin: 02/28/20 06:49 Dose: 4 units Documented by: Losartan Potassium (Cozaar -) 50 mg PO BID [facility] Last Admin: 02/27/20 22:46 Dose: 50 mg Documented by: Metoprolol Succinate (Toprol Xl -) 50 mg PO BID [facility] Last Admin: 02/27/20 22:45 Dose: 50 mg Documented by: Montelukast Sodium (Singulair -) 10 mg PO HS [facility] Last Admin: 02/27/20 22:46 Dose: 10 mg Documented by: Nitroglycerin (Nitro-Bid 2% Paste -) 1 inch TD Q6H PRN PRN Reason: HYPERTENSION Last Admin: 02/24/20 18:09 Dose: 1 inch Documented by: Pantoprazole Sodium (Protonix -) 40 mg PO DAILY [facility] Last Admin: 02/27/20 10:19 Dose: 40 mg Documented by: Rivastigmine Tartrate (Exelon) 4.5 mg PO BID [facility] Last Admin: 02/27/20 22:46 Dose: 4.5 mg Documented by: Solifenacin (Vesicare -) 5 mg PO DAILY [facility] Last Admin: 02/27/20 11:42 Dose: 5 mg Documented by: Tamsulosin HCl (Flomax -) 0.4 mg PO DAILY@0830 [facility] Last Admin: 02/27/20 08:32 Dose: 0.4 mg Documented by: Verapamil HCl (Calan Sr -) 120 mg PO DAILY [facility] Last Admin: 02/27/20 10:20 Dose: 120 mg Documented by: - Objective Vital Signs: Vital Signs Temperature 97.9 F 02/28/20 01:38 Pulse Rate 50 L 02/28/20 05:00 Respiratory Rate 20 02/28/20 05:00 Blood Pressure 197/69 H 02/28/20 05:00 O2 Sat by Pulse Oximetry (%) 95 02/28/20 05:00 Constitutional: Yes: Well Nourished, No Distress, Calm Eyes: Yes: Conjunctiva Clear, EOM Intact HENT: Yes: Atraumatic, Normocephalic Neck: Yes: Supple, Trachea Midline Cardiovascular: Yes: Regular Rate and Rhythm Respiratory: Yes: Regular, CTA Bilaterally Gastrointestinal: Yes: Normal Bowel Sounds, Soft ...Rectal Exam: Yes: Deferred Genitourinary: Yes: WNL Breast(s): Yes: WNL Musculoskeletal: Yes: Muscle Weakness Extremities: Yes: WNL Edema: No Peripheral Pulses WNL: Yes Integumentary: Yes: WNL Neurological: Yes: Alert, Confusion, Weakness ...Motor Strength: LLE (muscle weakness), RLE (muscle weakness) Psychiatric: Yes: Alert Labs: CBC, BMP 02/28/20 05:49 02/28/20 05:49 - ....Imaging Other: Report Reviewed (lab data reviewed) Problem List - Problems (1) Mobitz (type) II atrioventricular block Code(s): I44.1 - ATRIOVENTRICULAR BLOCK, SECOND DEGREE (2) Unable to walk Code(s): R26.2 - DIFFICULTY IN WALKING, NOT ELSEWHERE CLASSIFIED Assessment/Plan Assessment/plan: acute inability to walk, IV Ceftriaxone as per ID for acute E Coli urosepsis due to UTI; clonidine, metoprolol, NTG, losartan, amolodipine, hydralazine for HTN; duoneb for dyspnea/wheezing; tamsulosin for BPH; rivastigmine for dementia; SQ Lovenox, aspirin and oral pantoprazole for DVT/GI prophylaxis; physical therapy for deconditioning; vesicare for overactive bladder; Novolog 70/30 mix and sliding scale regular insulin coverage for DM; vitamin b12 as supplement; diastolic LV dysfunction with MR.
--- NOTE | 2020-02-28 08:30 | PN ---
Progress Note, Physician History of Present Illness: Mr. 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 Per the patients , the patient has been having difficulty ambulating and has been noticeably weaker. The pt was ambulating well, assisted on his own approximately 1 week ago, but has been getting more unsteady - yesterday was so weak could not ambulate on his own and today, he was unable to walk at all. There has been no fever/chills, cough, n/v, cp, sob, headache, dizziness, neck pain, bakc pain, focal numbness/tingling/weakness. Pt has hx of UTI and was on abx by his urologist recently - Current Medication List Current Medications: Active Medications Albuterol Sulfate (Ventolin Hfa Inhaler -) 2 puff IH Q6H PRN PRN Reason: SHORT OF BREATH/WHEEZING Albuterol/Ipratropium (Duoneb -) 1 amp NEB Q8H PRN PRN Reason: SHORT OF BREATH/WHEEZING Aspirin (Ecotrin -) 81 mg PO DAILY [facility] Last Admin: 02/27/20 10:19 Dose: 81 mg Documented by: Atorvastatin Calcium (Lipitor -) 40 mg PO HS [facility] Last Admin: 02/27/20 22:45 Dose: 40 mg Documented by: Betamethasone Dipropionate (Diprolene 0.05% Ointment -) 1 applic TP DAILY [facility] Last Admin: 02/27/20 10:20 Dose: 1 applic Documented by: Clonidine (Catapres -) 0.1 mg PO BID [facility] Last Admin: 02/27/20 22:46 Dose: 0.1 mg Documented by: Cyanocobalamin (Vitamin B12 -) 1,000 mcg PO DAILY [facility] Last Admin: 02/27/20 10:19 Dose: 1,000 mcg Documented by: Enoxaparin Sodium (Lovenox -) 40 mg SQ DAILY [facility] Last Admin: 02/27/20 10:19 Dose: 40 mg Documented by: Folic Acid (Folic Acid -) 1 mg PO DAILY [facility] Last Admin: 02/27/20 10:19 Dose: 1 mg Documented by: Ceftriaxone Sodium 1 gm/ (Dextrose) 50 mls @ 200 mls/hr IVPB DAILY [facility]; Protocol Last Admin: 02/27/20 10:19 Dose: 200 mls/hr Documented by: Dextrose (D5w -) 1,000 mls @ 50 mls/hr IV .[id number] [facility] Insulin Aspart (Novolog Mix 70/30 Vial) 5 units SQ BIDAC [facility] Last Admin: 02/28/20 06:49 Dose: 5 unit Documented by: Insulin Aspart (Novolog Vial Sliding Scale -) 1 vial SQ TIDAC [facility]; Protocol Last Admin: 02/28/20 06:49 Dose: 4 units Documented by: Losartan Potassium (Cozaar -) 50 mg PO BID [facility] Last Admin: 02/27/20 22:46 Dose: 50 mg Documented by: Metoprolol Succinate (Toprol Xl -) 50 mg PO BID [facility] Last Admin: 02/27/20 22:45 Dose: 50 mg Documented by: Montelukast Sodium (Singulair -) 10 mg PO HS [facility] Last Admin: 02/27/20 22:46 Dose: 10 mg Documented by: Nitroglycerin (Nitro-Bid 2% Paste -) 1 inch TD Q6H PRN PRN Reason: HYPERTENSION Last Admin: 02/24/20 18:09 Dose: 1 inch Documented by: Pantoprazole Sodium (Protonix -) 40 mg PO DAILY [facility] Last Admin: 02/27/20 10:19 Dose: 40 mg Documented by: Rivastigmine Tartrate (Exelon) 4.5 mg PO BID [facility] Last Admin: 02/27/20 22:46 Dose: 4.5 mg Documented by: Solifenacin (Vesicare -) 5 mg PO DAILY [facility] Last Admin: 02/27/20 11:42 Dose: 5 mg Documented by: Tamsulosin HCl (Flomax -) 0.4 mg PO DAILY@0830 [facility] Last Admin: 02/27/20 08:32 Dose: 0.4 mg Documented by: Verapamil HCl (Calan Sr -) 120 mg PO DAILY [facility] Last Admin: 02/27/20 10:20 Dose: 120 mg Documented by: - Objective Vital Signs: Vital Signs Temperature 97.9 F 02/28/20 01:38 Pulse Rate 50 L 02/28/20 05:00 Respiratory Rate 20 02/28/20 05:00 Blood Pressure 197/69 H 02/28/20 05:00 O2 Sat by Pulse Oximetry (%) 95 02/28/20 05:00 Eyes: Yes: WNL, Conjunctiva Clear, EOM Intact HENT: Yes: WNL, Atraumatic, Normocephalic Neck: Yes: WNL, Supple, Trachea Midline Cardiovascular: Yes: WNL, Regular Rate and Rhythm Respiratory: Yes: WNL, Regular, CTA Bilaterally Gastrointestinal: Yes: WNL, Normal Bowel Sounds Genitourinary: Yes: WNL Musculoskeletal: Yes: WNL Extremities: Yes: WNL Edema: No Integumentary: Yes: WNL Labs: CBC, BMP 02/28/20 05:49 02/28/20 05:49 Assessment/Plan Progressive weakness; admitted when noted unable to walk. Parkinson's Progressive (and now advanced) dementia DM: HTN, at times uncontrolled HLD diastolic LV dysfunction with MR on 2018 ECHO fromer alcoholic, cigarettes (quit both 40 yrs ago). Pl: On antibiotics for r/o sepsis. EKG: NSR; normal study; no longer in Mobitz II Type I AVB F/u ECHO for LVEF, wall motion, valve status; transient Mobitz II Type I AVB On multiple medications (clonidine, verapamil, losartan, metoprolol) for HTN; f/u BP serially (Caution with continuing combination of clonidine and metoprolol: sudden withd richard of either may result in rebound HTN, with additional potential complications of abrupt beta tessie withdrawal including ID, arrhythmias, etc. Consider gradual withdrawal of clonidine, followed later by withdrawal of beta blockers/nondihydropyridine calcium channel blockers, given transient Mobitz AVB, continuance of losartan, and use of alternative antihypertensive classes, e.g., hydralazine, amlodipine).
[2020-02-28] MEDS ORDERED: PT OWN MED DRAWER 7, Y5N ONE ×2 (09:24→20:55)
[2020-02-28] MEDS: TAMSULOSIN HCL 0.4 MG CAP PO SCH (09:44)
[2020-02-28] MEDS: FOLIC ACID 1 MG TABLET (FP) PO SCH (09:44)
[2020-02-28] MEDS: ENOXAPARIN NA (PORCINE) 40 MG/0.4 ML DISP.SYRIN SQ SCH (09:44)
[2020-02-28] MEDS: CYANOCOBALAMIN 1,000 MCG TABLET (FP) PO SCH (09:44)
[2020-02-28] MEDS: ASPIRIN COATED 81 MG TABLET.EC PO SCH (09:44)
[2020-02-28] MEDS: LOSARTAN POTASSIUM 50 MG TABLET (FP) PO SCH ×2 (09:44→21:06)
[2020-02-28] MEDS: PANTOPRAZOLE 40 MG TABLET PO SCH (09:44)
[2020-02-28] MEDS: VERAPAMIL HCL 120 MG E.R. TABLET PO SCH (09:46)
[2020-02-28] MEDS: RIVASTIGMINE TARTRATE 1.5 MG CAPSULE PO SCH ×2 (09:46→21:07)
[2020-02-28] MEDS: BETAMETHASONE DIPR 0.05% OINT 45 GM TUBE TP SCH (09:47)
[2020-02-28] MEDS: amLODIPine BESYLATE 10 MG TABLET (FP) PO SCH (09:51)
[2020-02-28] MEDS ORDERED: cefTRIAXone SODIUM 1 GM VIAL ONE (09:51)
[2020-02-28] MEDS ORDERED: DEXTROSE 5%-WATER - 50 ML IVPB ONE (09:51)
[2020-02-28] MEDS: CEFTRIAXONE 1 GM in DEXTROSE 5%-WATER - 50 ML IVPB SCH (09:52)
[2020-02-28] MEDS ORDERED: cloNIDine HCL 0.1 MG TABLET PO SCH (10:00)
[2020-02-28] MEDS: SOLIFENACIN SUCCINATE 5 MG TAB PO SCH (10:02)
--- NOTE | 2020-02-28 10:28 | PN ---
Progress Note, [employer] - Note Progress Note: Selected Entries 02/27/20 02/27/20 02/27/20 10:45 14:32 23:00 Breakfast 50% Lunch 75% Supper 50% Temperature Pulse Rate Blood Pressure 02/28/20 02/28/20 01:38 05:00 Breakfast Lunch Supper Temperature 97.9 F Pulse Rate 52 L 50 L Blood Pressure 145/71 197/69 H Laboratory Tests 02/28/20 05:49 WBC 7.6 Tolerating diet. Improved acceptance Diet Order is Dys chopped w 1-2 soft items, and thin liquids Glucerna
--- NOTE | 2020-02-28 12:17 | ECHO ---
Version: 1 Name: WISAM THOMASON Exam: Adult Echocardiogram Study Date: 02/28/2020, 10:35 AM Age: 79 Years Doppler Measurements & Calculations TR max radha: 249.8 cm/sec TR max P.0 mmHg Summary Statements Technically difficult and limited study with only subcostal views and limited apical views. Limited doppler exam. The Left Ventricular systolic function appears grossly normal (wall motion abnormalities canno t be excluded). The right ventricle appears grossly normal size with normal function. There is mild aorti c sclerosis, but the aortic valve opens well. The mitral valve appears grossly normal. There is mild t ricuspid regurgitation with normal right sided pressure and no pericardial effusion. Technically difficult and limited study with only subcostal views and limited apical views. Limited doppler exam. The Left Ventricular systolic function appears grossly normal (wall motion abnormalities canno t be excluded). The right ventricle appears grossly normal size with normal function. There is mild aorti c sclerosis, but the aortic valve opens well. The mitral valve appears grossly normal. There is mild t ricuspid regurgitation with normal right sided pressure and no pericardial effusion. MD Dawn *Mahendra 02/28/2020, 12:17 PM Ordering Physician: Nilesh Warren Referring Physician: NILESH WARREN Performed By: Emilee Rosenberg
[2020-02-28] MEDS: hydrALAZINE HCL 10 MG TABLET PO SCH ×2 (13:41→21:05)
--- NOTE | 2020-02-28 16:49 | PN ---
Progress Note, Physician History of Present Illness: AWAKE, ALERT IN BED MORE ALERT NO COMPLAINTS DENIES DYSURIA/ HEMATURIA NO FEVER/ CHILLS URINE E COLI - Current Medication List Current Medications: Active Medications Albuterol Sulfate (Ventolin Hfa Inhaler -) 2 puff IH Q6H PRN PRN Reason: SHORT OF BREATH/WHEEZING Albuterol/Ipratropium (Duoneb -) 1 amp NEB Q8H PRN PRN Reason: SHORT OF BREATH/WHEEZING Amlodipine Besylate (Norvasc -) 10 mg PO DAILY [facility] Last Admin: 02/28/20 09:51 Dose: 10 mg Documented by: Aspirin (Ecotrin -) 81 mg PO DAILY [facility] Last Admin: 02/28/20 09:44 Dose: 81 mg Documented by: Atorvastatin Calcium (Lipitor -) 40 mg PO HS [facility] Last Admin: 02/27/20 22:45 Dose: 40 mg Documented by: Betamethasone Dipropionate (Diprolene 0.05% Ointment -) 1 applic TP DAILY [facility] Last Admin: 02/28/20 09:47 Dose: 1 applic Documented by: Clonidine (Catapres -) 0.1 mg PO DAILY [facility] Last Admin: 02/28/20 09:52 Dose: 0.1 mg Documented by: Cyanocobalamin (Vitamin B12 -) 1,000 mcg PO DAILY [facility] Last Admin: 02/28/20 09:44 Dose: 1,000 mcg Documented by: Enoxaparin Sodium (Lovenox -) 40 mg SQ DAILY [facility] Last Admin: 02/28/20 09:44 Dose: 40 mg Documented by: Folic Acid (Folic Acid -) 1 mg PO DAILY [facility] Last Admin: 02/28/20 09:44 Dose: 1 mg Documented by: Hydralazine HCl (Apresoline -) 10 mg PO TID [facility] Last Admin: 02/28/20 13:41 Dose: 10 mg Documented by: Ceftriaxone Sodium 1 gm/ (Dextrose) 50 mls @ 200 mls/hr IVPB DAILY [facility]; Protocol Last Admin: 02/28/20 09:52 Dose: 200 mls/hr Documented by: Insulin Aspart (Novolog Mix 70/30 Vial) 8 units SQ BIDAC [facility] Insulin Aspart (Novolog Vial Sliding Scale -) 1 vial SQ TIDAC [facility]; Protocol Last Admin: 02/28/20 12:10 Dose: 2 units Documented by: Losartan Potassium (Cozaar -) 50 mg PO BID [facility] Last Admin: 02/28/20 09:44 Dose: 50 mg Documented by: Metoprolol Succinate (Toprol Xl -) 50 mg PO DAILY [facility] Last Admin: 02/28/20 09:51 Dose: 50 mg Documented by: Montelukast Sodium (Singulair -) 10 mg PO HS [facility] Last Admin: 02/27/20 22:46 Dose: 10 mg Documented by: Nitroglycerin (Nitro-Bid 2% Paste -) 1 inch TD Q6H PRN PRN Reason: HYPERTENSION Last Admin: 02/24/20 18:09 Dose: 1 inch Documented by: Pantoprazole Sodium (Protonix -) 40 mg PO DAILY [facility] Last Admin: 02/28/20 09:44 Dose: 40 mg Documented by: Rivastigmine Tartrate (Exelon) 4.5 mg PO BID [facility] Last Admin: 02/28/20 09:46 Dose: 4.5 mg Documented by: Solifenacin (Vesicare -) 5 mg PO DAILY [facility] Last Admin: 02/28/20 10:02 Dose: 5 mg Documented by: Tamsulosin HCl (Flomax -) 0.4 mg PO DAILY@0830 [facility] Last Admin: 02/28/20 09:44 Dose: 0.4 mg Documented by: Verapamil HCl (Calan Sr -) 120 mg PO DAILY [facility] Last Admin: 02/28/20 09:46 Dose: 120 mg Documented by: - Objective Vital Signs: Vital Signs Temperature 97.5 F L 02/28/20 14:05 Pulse Rate 51 L 02/28/20 14:05 Respiratory Rate 18 02/28/20 14:05 Blood Pressure 142/71 02/28/20 14:05 O2 Sat by Pulse Oximetry (%) 98 02/28/20 09:00 Constitutional: Yes: No Distress Cardiovascular: Yes: Regular Rate and Rhythm, S1, S2 Respiratory: Yes: CTA Bilaterally Gastrointestinal: Yes: Normal Bowel Sounds, Soft. No: Tenderness Edema: No Labs: CBC, BMP 02/28/20 05:49 02/28/20 05:49 Assessment/Plan UTI R/O SEPSIS SECONDARY TO UTI PARKINSONISM OBS SUBSTITUTE PO CEFTIN X 48HR
[2020-02-28] MEDS: CEFUROXIME AXETIL 500 MG TABLET PO SCH (21:06)
[2020-02-28] MEDS: ATORVASTATIN CA 40 MG TABLET (FP) PO SCH (21:06)
[2020-02-28] MEDS: MONTELUKAST NA 10 MG TABLET PO SCH (21:06)
[2020-02-29] MEDS: hydrALAZINE HCL 10 MG TABLET PO SCH ×4 (06:33→21:17)
[2020-02-29] MEDS: INSULIN SLIDING SCALE (NOVOLOG) 1 VIAL SQ SCH ×3 (06:46→16:56)
[2020-02-29 06:56] LABS: BASO % 0.5 % (0-2.0); EOS % 8.2 % (0-4.5); HEMATOCRIT 39.4 % (35.4-49); HEMOGLOBIN 12.8 GM/dL (11.7-16.9); LYMPH % 13.3 % (8-40); MCH 26.3 pg (25.7-33.7); MCHC 32.5 g/dl (32.0-35.9); MEAN PLT VOLUME 9.6 fl (7.5-11.1); MONO % 13.7 % (3.8-10.2); NEUT % 64.3 % (42.8-82.8); PLATELET COUNT 233 K/MM3 (134-434); RBC 4.87 M/mm3 (4.00-5.60); RDW 15.6 % (11.9-15.9); WHITE BLOOD COUNT 7.5 K/mm3 (4.0-10.0)
[2020-02-29] MEDS ORDERED: hydrALAZINE HCL 10 MG TABLET PO SCH (07:02)
--- NOTE | 2020-02-29 07:04 | PN ---
Progress Note (short form) - Note Progress Note: Coverage for Dr. Janessa Michael Chief Complaint: Events noted, notes reviewed, resting in bed, denies any chest discomfort, denies any dyspnea, reports vague left shoulder discomfort History of Present Illness: Seen and examined on telemetry. Events noted, notes reviewed, resting in bed, denies any chest discomfort, denies any dyspnea, reports vague left shoulder discomfort Echocardiography study noted Medications: Current Medications Generic Name Dose Route Start Last Admin Trade Name Freq PRN Reason Stop Dose Admin Albuterol Sulfate 2 puff 02/22/20 20:02 Ventolin Hfa Inhaler - IH Q6H PRN SHORT OF BREATH/WHEEZING Albuterol/Ipratropium 1 amp 02/26/20 18:55 Duoneb - NEB Q8H PRN SHORT OF BREATH/WHEEZING Amlodipine Besylate 10 mg 02/28/20 10:00 02/28/20 09:51 Norvasc - PO 10 mg DAILY RIO Administration Aspirin 81 mg 02/23/20 10:00 02/28/20 09:44 Ecotrin - PO 81 mg DAILY RIO Administration Atorvastatin Calcium 40 mg 02/22/20 22:00 02/28/20 21:06 Lipitor - PO 40 mg HS RIO Administration Betamethasone Dipropionate 1 applic 02/23/20 10:00 02/28/20 09:47 Diprolene 0.05% Ointment - TP 1 applic DAILY RIO Administration Cefuroxime Axetil 500 mg 02/28/20 22:00 02/28/20 21:06 Ceftin - PO 500 mg BID RIO Administration Cyanocobalamin 1,000 mcg 02/23/20 10:00 02/28/20 09:44 Vitamin B12 - PO 1,000 mcg DAILY RIO Administration Enoxaparin Sodium 40 mg 02/22/20 20:15 02/28/20 09:44 Lovenox - SQ 40 mg DAILY RIO Administration Folic Acid 1 mg 02/23/20 10:00 02/28/20 09:44 Folic Acid - PO 1 mg DAILY RIO Administration Hydralazine HCl 10 mg 02/28/20 14:00 02/29/20 06:33 Apresoline - PO 10 mg TID RIO Administration Insulin Aspart 8 units 02/28/20 16:30 02/28/20 17:04 Novolog Mix 70/30 Vial SQ 8 units BIDAC RIO Administration Insulin Aspart 1 vial 02/28/20 11:00 02/29/20 06:46 Novolog Vial Sliding Scale - SQ Not Given TIDAC [facility] Protocol Losartan Potassium 50 mg 02/23/20 22:00 02/28/20 21:06 Cozaar - PO 50 mg BID RIO Administration Montelukast Sodium 10 mg 02/25/20 22:00 02/28/20 21:06 Singulair - PO 10 mg HS RIO Administration Nitroglycerin 1 inch 02/24/20 17:59 02/24/20 18:09 Nitro-Bid 2% Paste - TD 1 inch Q6H PRN Administration HYPERTENSION Pantoprazole Sodium 40 mg 02/22/20 20:15 02/28/20 09:44 Protonix - PO 40 mg DAILY RIO Administration Rivastigmine Tartrate 4.5 mg 02/23/20 22:00 02/28/20 21:07 Exelon PO 4.5 mg BID RIO Administration Solifenacin 5 mg 02/23/20 10:00 02/28/20 10:02 Vesicare - PO 5 mg DAILY RIO Administration Tamsulosin HCl 0.4 mg 02/23/20 08:30 02/28/20 09:44 Flomax - PO 0.4 mg DAILY@0830 RIO Administration Review of Systems - Review of Systems Unable- difficult to obtain/organic brain syndrome- dementia Vital Signs: Last Vital Signs Temp Pulse Resp BP Pulse Ox 97.6 F 64 18 153/87 98 02/29/20 05:40 02/29/20 05:40 02/29/20 05:40 02/29/20 05:40 02/29/20 02:00 Intake & Output 02/26/20 02/27/20 02/28/20 02/29/20 23:59 23:59 23:59 23:59 Intake Total 480 1140 1060 180 Balance 480 1140 1060 180 Neck: Supple Negative JVD Respiratory: Diminished Breath Sounds at the Bases Cardiovascular: S1 S2 Regular Rate Rhythm Gastrointestinal: Soft Benign Normal Bowel Sounds Ext: Negative Edema Labs: CBC, BMP 02/29/20 06:10 02/29/20 06:10 Hepatic Panel Total Bilirubin 0.3 mg/dL (0.2-1) 02/29/20 06:10 AST 51 U/L (15-37) H 02/29/20 06:10 ALT 53 U/L (13-61) 02/29/20 06:10 Alkaline Phosphatase 119 U/L (45-117) H 02/29/20 06:10 Albumin 2.3 g/dl (3.4-5.0) L 02/29/20 06:10 Hepatic Panel Total Bilirubin 0.8 mg/dL (0.2-1) 02/28/20 05:49 AST 28 U/L (15-37) 02/28/20 05:49 ALT 32 U/L (13-61) 02/28/20 05:49 Alkaline Phosphatase 114 U/L (45-117) 02/28/20 05:49 Albumin 2.2 g/dl (3.4-5.0) L 02/28/20 05:49 Assessment/Plan ASSESSMENT: 1. Transient second degree AV block Mobitz I, resolved 2. CAD angina pectoris 3. Diastolic LV dysfunction with clinical class 0 NYHA classification LV failure 4. HTN 5. DM 6. Hypercholesterolemia 7. Organic syndrome/dementia- progressive 8. Parkinson's disease with progressive weakness 9. UTI- suspected urosepsis PLAN: 1. Continue Norvasc therapy 2. Continue Cozaar therapy and dose titration as needed 3. Discontinue Hydralazine therapy 4. Discontinue NTP therapy 5. Continue Lipitor therapy 6. Continue Ecotrin therapy 7. May resume beta-tessie therapy if needed since second degree AV block Mobitz1 is not a contraindication 8. Antibiotics as per the primary team Kelley Chapin MD
[2020-02-29 07:20] LABS: ALBUMIN 2.3 g/dl (3.4-5.0); BILIRUBIN,TOTAL 0.3 mg/dL (0.2-1); BLOOD UREA NITROGEN 12.3 mg/dL (7-18); CALCIUM 8.4 mg/dL (8.5-10.1); POTASSIUM 4.6 mmol/L (3.5-5.1); TOT PROT 6.5 g/dl (6.4-8.2)
[2020-02-29] MEDS: INSULIN (NOVOLOG MIX 70/30) 100 UNITS/ML MDV SQ SCH ×2 (07:22→16:56)
--- NOTE | 2020-02-29 08:17 | PN ---
Progress Note, Physician Chief Complaint: Patient seen and examined at the bedside, no acute events from last night, afebrile. History of Present Illness: This 79 yr old male with PMH of Alzheimer's disease with Parkinsonian features, HTN, HLD, CAD, DM admitted via ER with an acute inability to walk and an acute UTI. - Current Medication List Current Medications: Active Medications Albuterol Sulfate (Ventolin Hfa Inhaler -) 2 puff IH Q6H PRN PRN Reason: SHORT OF BREATH/WHEEZING Albuterol/Ipratropium (Duoneb -) 1 amp NEB Q8H PRN PRN Reason: SHORT OF BREATH/WHEEZING Amlodipine Besylate (Norvasc -) 10 mg PO DAILY [facility] Last Admin: 02/28/20 09:51 Dose: 10 mg Documented by: Aspirin (Ecotrin -) 81 mg PO DAILY [facility] Last Admin: 02/28/20 09:44 Dose: 81 mg Documented by: Atorvastatin Calcium (Lipitor -) 40 mg PO HS [facility] Last Admin: 02/28/20 21:06 Dose: 40 mg Documented by: Betamethasone Dipropionate (Diprolene 0.05% Ointment -) 1 applic TP DAILY [facility] Last Admin: 02/28/20 09:47 Dose: 1 applic Documented by: Cefuroxime Axetil (Ceftin -) 500 mg PO BID [facility] Last Admin: 02/28/20 21:06 Dose: 500 mg Documented by: Cyanocobalamin (Vitamin B12 -) 1,000 mcg PO DAILY [facility] Last Admin: 02/28/20 09:44 Dose: 1,000 mcg Documented by: Enoxaparin Sodium (Lovenox -) 40 mg SQ DAILY [facility] Last Admin: 02/28/20 09:44 Dose: 40 mg Documented by: Folic Acid (Folic Acid -) 1 mg PO DAILY [facility] Last Admin: 02/28/20 09:44 Dose: 1 mg Documented by: Hydralazine HCl (Apresoline -) 10 mg PO TID [facility] Insulin Aspart (Novolog Mix 70/30 Vial) 8 units SQ BIDAC [facility] Last Admin: 02/29/20 07:22 Dose: 8 units Documented by: Insulin Aspart (Novolog Vial Sliding Scale -) 1 vial SQ TIDAC [facility]; Protocol Last Admin: 02/29/20 06:46 Dose: Not Given Documented by: Losartan Potassium (Cozaar -) 50 mg PO BID [facility] Last Admin: 02/28/20 21:06 Dose: 50 mg Documented by: Montelukast Sodium (Singulair -) 10 mg PO HS [facility] Last Admin: 02/28/20 21:06 Dose: 10 mg Documented by: Nitroglycerin (Nitro-Bid 2% Paste -) 1 inch TD Q6H PRN PRN Reason: HYPERTENSION Last Admin: 02/24/20 18:09 Dose: 1 inch Documented by: Pantoprazole Sodium (Protonix -) 40 mg PO DAILY [facility] Last Admin: 02/28/20 09:44 Dose: 40 mg Documented by: Rivastigmine Tartrate (Exelon) 4.5 mg PO BID [facility] Last Admin: 02/28/20 21:07 Dose: 4.5 mg Documented by: Solifenacin (Vesicare -) 5 mg PO DAILY [facility] Last Admin: 02/28/20 10:02 Dose: 5 mg Documented by: Tamsulosin HCl (Flomax -) 0.4 mg PO DAILY@0830 [facility] Last Admin: 02/28/20 09:44 Dose: 0.4 mg Documented by: - Objective Vital Signs: Vital Signs Temperature 97.6 F 02/29/20 05:40 Pulse Rate 64 02/29/20 05:40 Respiratory Rate 18 02/29/20 05:40 Blood Pressure 153/87 02/29/20 05:40 O2 Sat by Pulse Oximetry (%) 98 02/29/20 02:00 Constitutional: Yes: Well Nourished, No Distress, Calm Eyes: Yes: Conjunctiva Clear, EOM Intact HENT: Yes: Atraumatic, Normocephalic Neck: Yes: Supple, Trachea Midline Cardiovascular: Yes: Regular Rate and Rhythm Respiratory: Yes: Regular, CTA Bilaterally Gastrointestinal: Yes: Normal Bowel Sounds, Soft ...Rectal Exam: Yes: Deferred Genitourinary: Yes: WNL Breast(s): Yes: WNL Musculoskeletal: Yes: Muscle Weakness Extremities: Yes: WNL Edema: No Peripheral Pulses WNL: Yes Integumentary: Yes: WNL Neurological: Yes: Alert, Unsteady Gait, Weakness ...Motor Strength: LLE (muscle weakness), RLE (muscle weakness) Psychiatric: Yes: Alert Labs: CBC, BMP 02/29/20 06:10 02/29/20 06:10 - ....Imaging Other: Report Reviewed (lab data reviewed) Problem List - Problems (1) Mobitz (type) II atrioventricular block Code(s): I44.1 - ATRIOVENTRICULAR BLOCK, SECOND DEGREE (2) Unable to walk Code(s): R26.2 - DIFFICULTY IN WALKING, NOT ELSEWHERE CLASSIFIED Assessment/Plan Assessment/plan: Ceftin for UTI; amlodipine. losartan, NTG, and hydralazine for HTN; d/c clonidine, metoprolol and verapamil; duoneb for dyspnea/wheezing; tamsulosin for BPH; rivastigmine for dementia; SQ Lovenox, aspirin, and oral pantoprazole for DVT/GI prophylaxis; atorvastatin for HLD; physical therapy for deconditioning; Novolog 70/30 mix for DM; Vesicare for overactive bladder.
[2020-02-29] MEDS: CYANOCOBALAMIN 1,000 MCG TABLET (FP) PO SCH (09:09)
[2020-02-29] MEDS: ASPIRIN COATED 81 MG TABLET.EC PO SCH (09:09)
[2020-02-29] MEDS: CEFUROXIME AXETIL 500 MG TABLET PO SCH ×2 (09:09→21:17)
[2020-02-29] MEDS: TAMSULOSIN HCL 0.4 MG CAP PO SCH (09:09)
[2020-02-29] MEDS: FOLIC ACID 1 MG TABLET (FP) PO SCH (09:09)
[2020-02-29] MEDS: PANTOPRAZOLE 40 MG TABLET PO SCH (09:09)
[2020-02-29] MEDS: amLODIPine BESYLATE 10 MG TABLET (FP) PO SCH (09:09)
[2020-02-29] MEDS: RIVASTIGMINE TARTRATE 1.5 MG CAPSULE PO SCH ×2 (09:10→21:17)
[2020-02-29] MEDS: BETAMETHASONE DIPR 0.05% OINT 45 GM TUBE TP SCH (09:10)
[2020-02-29] MEDS: LOSARTAN POTASSIUM 50 MG TABLET (FP) PO SCH ×2 (09:10→21:17)
[2020-02-29] MEDS: ENOXAPARIN NA (PORCINE) 40 MG/0.4 ML DISP.SYRIN SQ SCH (09:11)
[2020-02-29] MEDS: SOLIFENACIN SUCCINATE 5 MG TAB PO SCH (09:12)
[2020-02-29] MEDS: MONTELUKAST NA 10 MG TABLET PO SCH (21:17)
[2020-02-29] MEDS: ATORVASTATIN CA 40 MG TABLET (FP) PO SCH (21:17)
[2020-03-01] MEDS ORDERED: hydrALAZINE HCL 10 MG TABLET PO SCH (06:00)
[2020-03-01] MEDS: INSULIN SLIDING SCALE (NOVOLOG) 1 VIAL SQ SCH ×3 (06:29→17:35)
[2020-03-01] MEDS: INSULIN (NOVOLOG MIX 70/30) 100 UNITS/ML MDV SQ SCH ×2 (06:30→17:36)
[2020-03-01 06:42] LABS: BASO % 0.5 % (0-2.0); EOS % 3.8 % (0-4.5); HEMATOCRIT 40.9 % (35.4-49); HEMOGLOBIN 13.1 GM/dL (11.7-16.9); LYMPH % 11.4 % (8-40); MCH 25.9 pg (25.7-33.7); MEAN CELL VOLUME 80.9 fl (80-96); MEAN PLT VOLUME 9.3 fl (7.5-11.1); MONO % 13.5 % (3.8-10.2); NEUT % 70.8 % (42.8-82.8); PLATELET COUNT 308 K/MM3 (134-434); RBC 5.05 M/mm3 (4.00-5.60); RDW 15.9 % (11.9-15.9); WHITE BLOOD COUNT 8.6 K/mm3 (4.0-10.0)
[2020-03-01] MEDS ORDERED: INSULIN (LEVEMIR) 100 UNITS/ML UNITS SQ ONE (06:45)
--- NOTE | 2020-03-01 06:50 | PN ---
Progress Note (short form) - Note Progress Note: Coverage for Dr. Janessa Michael Chief Complaint: Events noted, notes reviewed, resting in bed, denies any chest discomfort, denies any dyspnea History of Present Illness: Seen and examined on telemetry. Events noted, notes reviewed, resting in bed, denies any chest discomfort, denies any dyspnea Echocardiography study noted Medications: Current Medications Generic Name Dose Route Start Last Admin Trade Name Freq PRN Reason Stop Dose Admin Albuterol Sulfate 2 puff 02/22/20 20:02 Ventolin Hfa Inhaler - IH Q6H PRN SHORT OF BREATH/WHEEZING Albuterol/Ipratropium 1 amp 02/26/20 18:55 Duoneb - NEB Q8H PRN SHORT OF BREATH/WHEEZING Amlodipine Besylate 10 mg 02/28/20 10:00 02/29/20 09:09 Norvasc - PO 10 mg DAILY RIO Administration Aspirin 81 mg 02/23/20 10:00 02/29/20 09:09 Ecotrin - PO 81 mg DAILY RIO Administration Atorvastatin Calcium 40 mg 02/22/20 22:00 02/29/20 21:17 Lipitor - PO 40 mg HS RIO Administration Betamethasone Dipropionate 1 applic 02/23/20 10:00 02/29/20 09:10 Diprolene 0.05% Ointment - TP 1 applic DAILY RIO Administration Cefuroxime Axetil 500 mg 02/28/20 22:00 02/29/20 21:17 Ceftin - PO 500 mg BID RIO Administration Cyanocobalamin 1,000 mcg 02/23/20 10:00 02/29/20 09:09 Vitamin B12 - PO 1,000 mcg DAILY RIO Administration Enoxaparin Sodium 40 mg 02/22/20 20:15 02/29/20 09:11 Lovenox - SQ 40 mg DAILY RIO Administration Folic Acid 1 mg 02/23/20 10:00 02/29/20 09:09 Folic Acid - PO 1 mg DAILY RIO Administration Hydralazine HCl 20 mg 03/01/20 06:00 03/01/20 06:29 Apresoline - PO 20 mg TID RIO Administration Insulin Aspart 8 units 02/28/20 16:30 03/01/20 06:30 Novolog Mix 70/30 Vial SQ 8 units BIDAC RIO Administration Insulin Aspart 1 vial 02/28/20 11:00 03/01/20 06:29 Novolog Vial Sliding Scale - SQ 2 units TIDAC RIO Administration Protocol Losartan Potassium 50 mg 02/23/20 22:00 02/29/20 21:17 Cozaar - PO 50 mg BID RIO Administration Montelukast Sodium 10 mg 02/25/20 22:00 02/29/20 21:17 Singulair - PO 10 mg HS RIO Administration Nitroglycerin 1 inch 02/24/20 17:59 02/24/20 18:09 Nitro-Bid 2% Paste - TD 1 inch Q6H PRN Administration HYPERTENSION Pantoprazole Sodium 40 mg 02/22/20 20:15 02/29/20 09:09 Protonix - PO 40 mg DAILY RIO Administration Rivastigmine Tartrate 4.5 mg 02/23/20 22:00 02/29/20 21:17 Exelon PO 4.5 mg BID RIO Administration Solifenacin 5 mg 02/23/20 10:00 02/29/20 09:12 Vesicare - PO 5 mg DAILY RIO Administration Tamsulosin HCl 0.4 mg 02/23/20 08:30 02/29/20 09:09 Flomax - PO 0.4 mg DAILY@0830 RIO Administration Review of Systems - Review of Systems Unable- difficult to obtain/organic brain syndrome- dementia Vital Signs: Last Vital Signs Temp Pulse Resp BP Pulse Ox 98.4 F 69 20 157/79 94 L 02/29/20 22:00 02/29/20 22:00 02/29/20 22:00 02/29/20 22:00 02/29/20 22:00 Intake & Output 02/27/20 02/28/20 02/29/20 03/01/20 23:59 23:59 23:59 23:59 Intake Total 1140 1060 630 200 Output Total 300 Balance 1140 1060 330 200 Neck: Supple Negative JVD Respiratory: Diminished Breath Sounds at the Bases Cardiovascular: S1 S2 Regular Rate Rhythm Gastrointestinal: Soft Benign Normal Bowel Sounds Ext: Negative Edema Labs: CBC, BMP 03/01/20 06:05 03/01/20 06:05 Hepatic Panel Total Bilirubin 0.6 mg/dL (0.2-1) 03/01/20 06:05 AST 62 U/L (15-37) H 03/01/20 06:05 ALT 79 U/L (13-61) H 03/01/20 06:05 Alkaline Phosphatase 144 U/L (45-117) H 03/01/20 06:05 Albumin 2.6 g/dl (3.4-5.0) L 03/01/20 06:05 Hepatic Panel Total Bilirubin 0.3 mg/dL (0.2-1) 02/29/20 06:10 AST 51 U/L (15-37) H 02/29/20 06:10 ALT 53 U/L (13-61) 02/29/20 06:10 Alkaline Phosphatase 119 U/L (45-117) H 02/29/20 06:10 Albumin 2.3 g/dl (3.4-5.0) L 02/29/20 06:10 Assessment/Plan ASSESSMENT: 1. Transient second degree AV block Mobitz I, resolved 2. CAD angina pectoris 3. Diastolic LV dysfunction with clinical class 0 NYHA classification LV failure 4. HTN 5. DM 6. Hypercholesterolemia 7. Organic syndrome/dementia- progressive 8. Parkinson's disease with progressive weakness 9. UTI- suspected urosepsis PLAN: 1. Continue Norvasc therapy 2. Continue Cozaar therapy and dose titration as needed as noted in yesterday's note 3. Discontinue Hydralazine therapy as noted in yesterday's note 4. Discontinue NTP therapy as noted in yesterday's note 5. Continue Lipitor therapy 6. Continue Ecotrin therapy 7. May resume beta-tessie therapy if needed since second degree AV block Mobitz1 is not a contraindication 8. Antibiotics as per the primary team Kelley Chapin MD
[2020-03-01 07:10] LABS: ALBUMIN 2.6 g/dl (3.4-5.0); BILIRUBIN,TOTAL 0.6 mg/dL (0.2-1); BLOOD UREA NITROGEN 10.8 mg/dL (7-18); CALCIUM 8.7 mg/dL (8.5-10.1); POTASSIUM 4.5 mmol/L (3.5-5.1); TOT PROT 7.3 g/dl (6.4-8.2)
--- NOTE | 2020-03-01 07:27 | PN ---
Progress Note, Physician Chief Complaint: Patient seen and examined at the bedside, no acute events from last night, afebrile, no dizziness. History of Present Illness: This 79 yr old w/m with PMH of Alzheimer's disease with Parkinsonian features, HTN, HLD, CAD, DM admitted via ER with an acute inability to walk and an acute UTI. - Current Medication List Current Medications: Active Medications Albuterol Sulfate (Ventolin Hfa Inhaler -) 2 puff IH Q6H PRN PRN Reason: SHORT OF BREATH/WHEEZING Albuterol/Ipratropium (Duoneb -) 1 amp NEB Q8H PRN PRN Reason: SHORT OF BREATH/WHEEZING Amlodipine Besylate (Norvasc -) 10 mg PO DAILY [facility] Last Admin: 02/29/20 09:09 Dose: 10 mg Documented by: Aspirin (Ecotrin -) 81 mg PO DAILY [facility] Last Admin: 02/29/20 09:09 Dose: 81 mg Documented by: Atorvastatin Calcium (Lipitor -) 40 mg PO HS [facility] Last Admin: 02/29/20 21:17 Dose: 40 mg Documented by: Betamethasone Dipropionate (Diprolene 0.05% Ointment -) 1 applic TP DAILY [facility] Last Admin: 02/29/20 09:10 Dose: 1 applic Documented by: Cefuroxime Axetil (Ceftin -) 500 mg PO BID [facility] Last Admin: 02/29/20 21:17 Dose: 500 mg Documented by: Cyanocobalamin (Vitamin B12 -) 1,000 mcg PO DAILY [facility] Last Admin: 02/29/20 09:09 Dose: 1,000 mcg Documented by: Enoxaparin Sodium (Lovenox -) 40 mg SQ DAILY [facility] Last Admin: 02/29/20 09:11 Dose: 40 mg Documented by: Folic Acid (Folic Acid -) 1 mg PO DAILY [facility] Last Admin: 02/29/20 09:09 Dose: 1 mg Documented by: Insulin Aspart (Novolog Mix 70/30 Vial) 8 units SQ BIDAC [facility] Last Admin: 03/01/20 06:30 Dose: 8 units Documented by: Insulin Aspart (Novolog Vial Sliding Scale -) 1 vial SQ TIDAC [facility]; Protocol Last Admin: 03/01/20 06:29 Dose: 2 units Documented by: Losartan Potassium (Cozaar -) 100 mg PO BID [facility] Montelukast Sodium (Singulair -) 10 mg PO HS [facility] Last Admin: 02/29/20 21:17 Dose: 10 mg Documented by: Pantoprazole Sodium (Protonix -) 40 mg PO DAILY [facility] Last Admin: 02/29/20 09:09 Dose: 40 mg Documented by: Rivastigmine Tartrate (Exelon) 4.5 mg PO BID [facility] Last Admin: 02/29/20 21:17 Dose: 4.5 mg Documented by: Solifenacin (Vesicare -) 5 mg PO DAILY [facility] Last Admin: 02/29/20 09:12 Dose: 5 mg Documented by: Tamsulosin HCl (Flomax -) 0.4 mg PO DAILY@0830 [facility] Last Admin: 02/29/20 09:09 Dose: 0.4 mg Documented by: - Objective Vital Signs: Vital Signs Temperature 98 F 03/01/20 06:00 Pulse Rate 85 03/01/20 06:00 Respiratory Rate 20 03/01/20 06:00 Blood Pressure 154/100 03/01/20 06:00 O2 Sat by Pulse Oximetry (%) 94 L 02/29/20 22:00 Constitutional: Yes: Well Nourished, No Distress, Calm Eyes: Yes: Conjunctiva Clear, EOM Intact HENT: Yes: Atraumatic, Normocephalic Neck: Yes: Supple, Trachea Midline Cardiovascular: Yes: Regular Rate and Rhythm Respiratory: Yes: Regular, CTA Bilaterally Gastrointestinal: Yes: Normal Bowel Sounds, Soft ...Rectal Exam: Yes: Deferred Genitourinary: Yes: WNL Breast(s): Yes: WNL Musculoskeletal: Yes: Muscle Weakness Extremities: Yes: WNL Edema: No Peripheral Pulses WNL: Yes Integumentary: Yes: WNL Neurological: Yes: Alert, Weakness ...Motor Strength: LLE (muscle weakness), RLE (muscle weakness) Psychiatric: Yes: Alert Labs: CBC, BMP 03/01/20 06:05 03/01/20 06:05 - ....Imaging Other: Report Reviewed (lab data reviewed) Problem List - Problems (1) Mobitz (type) II atrioventricular block Code(s): I44.1 - ATRIOVENTRICULAR BLOCK, SECOND DEGREE (2) Unable to walk Code(s): R26.2 - DIFFICULTY IN WALKING, NOT ELSEWHERE CLASSIFIED Assessment/Plan Assessment/plan: IV Cefuroxine as per ID for UTI; Novolog 70/30 mix for DM; losartan torsemide and amlodipine for HTN; rivastigmine for dementia; tamsulosin for BPH; vesicare of overactive bladder; duoneb for dyspnea/wheezing; SQ Lovenox, aspirin and oral pantoprazole for DVT/GI prophylaxis; vitamin b12 for vitamin b12 deficiency; physical therapy for deconditioning.
[2020-03-01] MEDS ORDERED: PT OWN MED DRAWER 7, Y5N ONE ×2 (10:49→21:28)
[2020-03-01] MEDS: ENOXAPARIN NA (PORCINE) 40 MG/0.4 ML DISP.SYRIN SQ SCH (10:52)
[2020-03-01] MEDS: RIVASTIGMINE TARTRATE 1.5 MG CAPSULE PO SCH ×2 (10:53→21:45)
[2020-03-01] MEDS: PANTOPRAZOLE 40 MG TABLET PO SCH (10:53)
[2020-03-01] MEDS: CEFUROXIME AXETIL 500 MG TABLET PO SCH ×2 (10:53→21:45)
[2020-03-01] MEDS: TORSEMIDE 10 MG TABLET PO SCH (10:53)
[2020-03-01] MEDS: LOSARTAN POTASSIUM 50 MG TABLET (FP) PO SCH ×2 (10:53→21:45)
[2020-03-01] MEDS: CYANOCOBALAMIN 1,000 MCG TABLET (FP) PO SCH (10:53)
[2020-03-01] MEDS: TAMSULOSIN HCL 0.4 MG CAP PO SCH (10:53)
[2020-03-01] MEDS: amLODIPine BESYLATE 10 MG TABLET (FP) PO SCH (10:53)
[2020-03-01] MEDS: FOLIC ACID 1 MG TABLET (FP) PO SCH (10:53)
[2020-03-01] MEDS: ASPIRIN COATED 81 MG TABLET.EC PO SCH (10:54)
[2020-03-01] MEDS: BETAMETHASONE DIPR 0.05% OINT 45 GM TUBE TP SCH (10:54)
[2020-03-01] MEDS: SOLIFENACIN SUCCINATE 5 MG TAB PO SCH (10:54)
[2020-03-01] MEDS: ATORVASTATIN CA 40 MG TABLET (FP) PO SCH (21:44)
[2020-03-01] MEDS: MONTELUKAST NA 10 MG TABLET PO SCH (21:44)
[2020-03-02] MEDS ORDERED: INSULIN (NOVOLOG) ASPART 100 UNITS/ML 10ML VIAL ONE (06:03)
[2020-03-02] MEDS: INSULIN SLIDING SCALE (NOVOLOG) 1 VIAL SQ SCH (06:06)
[2020-03-02] MEDS: INSULIN (NOVOLOG MIX 70/30) 100 UNITS/ML MDV SQ SCH (06:06)
--- NOTE | 2020-03-02 08:02 | PN ---
Progress Note, Physician Chief Complaint: Patient seen and examined at the bedside, no acute events from last night, no dizziness chest pain or labored breathing, afebrile. History of Present Illness: This 79 yr old male with PMH of HTN, DM, Alzheimer's disease with Parkinsonian features, HLD, CAD admitted with inability to walk and an acute UTI. - Current Medication List Current Medications: Active Medications Albuterol Sulfate (Ventolin Hfa Inhaler -) 2 puff IH Q6H PRN PRN Reason: SHORT OF BREATH/WHEEZING Albuterol/Ipratropium (Duoneb -) 1 amp NEB Q8H PRN PRN Reason: SHORT OF BREATH/WHEEZING Amlodipine Besylate (Norvasc -) 10 mg PO DAILY [facility] Last Admin: 03/01/20 10:53 Dose: 10 mg Documented by: Aspirin (Ecotrin -) 81 mg PO DAILY [facility] Last Admin: 03/01/20 10:54 Dose: 81 mg Documented by: Atorvastatin Calcium (Lipitor -) 40 mg PO HS [facility] Last Admin: 03/01/20 21:44 Dose: 40 mg Documented by: Betamethasone Dipropionate (Diprolene 0.05% Ointment -) 1 applic TP DAILY [facility] Last Admin: 03/01/20 10:54 Dose: Not Given Documented by: Cefuroxime Axetil (Ceftin -) 500 mg PO BID [facility] Last Admin: 03/01/20 21:45 Dose: 500 mg Documented by: Cyanocobalamin (Vitamin B12 -) 1,000 mcg PO DAILY [facility] Last Admin: 03/01/20 10:53 Dose: 1,000 mcg Documented by: Enoxaparin Sodium (Lovenox -) 40 mg SQ DAILY [facility] Last Admin: 03/01/20 10:52 Dose: 40 mg Documented by: Folic Acid (Folic Acid -) 1 mg PO DAILY [facility] Last Admin: 03/01/20 10:53 Dose: 1 mg Documented by: Insulin Aspart (Novolog Mix 70/30 Vial) 8 units SQ BIDAC [facility] Last Admin: 03/02/20 06:06 Dose: 8 units Documented by: Insulin Aspart (Novolog Vial Sliding Scale -) 1 vial SQ TIDAC [facility]; Protocol Last Admin: 03/02/20 06:06 Dose: 2 units Documented by: Losartan Potassium (Cozaar -) 100 mg PO BID [facility] Last Admin: 03/01/20 21:45 Dose: 100 mg Documented by: Montelukast Sodium (Singulair -) 10 mg PO HS [facility] Last Admin: 03/01/20 21:44 Dose: 10 mg Documented by: Pantoprazole Sodium (Protonix -) 40 mg PO DAILY [facility] Last Admin: 03/01/20 10:53 Dose: 40 mg Documented by: Rivastigmine Tartrate (Exelon) 4.5 mg PO BID [facility] Last Admin: 03/01/20 21:45 Dose: 4.5 mg Documented by: Solifenacin (Vesicare -) 5 mg PO DAILY [facility] Last Admin: 03/01/20 10:54 Dose: 5 mg Documented by: Tamsulosin HCl (Flomax -) 0.4 mg PO DAILY@0830 [facility] Last Admin: 03/01/20 10:53 Dose: 0.4 mg Documented by: Torsemide (Demadex -) 10 mg PO DAILY [facility] Last Admin: 03/01/20 10:53 Dose: 10 mg Documented by: - Objective Vital Signs: Vital Signs Temperature 98 F 03/02/20 06:00 Pulse Rate 87 03/02/20 06:00 Respiratory Rate 18 03/02/20 06:00 Blood Pressure 154/79 03/02/20 06:00 O2 Sat by Pulse Oximetry (%) 95 03/02/20 06:00 Constitutional: Yes: Well Nourished, No Distress, Calm Eyes: Yes: Conjunctiva Clear, EOM Intact HENT: Yes: Atraumatic, Normocephalic Neck: Yes: Supple, Trachea Midline Cardiovascular: Yes: Regular Rate and Rhythm Respiratory: Yes: Regular, CTA Bilaterally Gastrointestinal: Yes: Normal Bowel Sounds, Soft ...Rectal Exam: Yes: Deferred Genitourinary: Yes: WNL Breast(s): Yes: WNL Musculoskeletal: Yes: Muscle Weakness Extremities: Yes: WNL Edema: No Peripheral Pulses WNL: Yes Integumentary: Yes: WNL Neurological: Yes: Alert, Weakness ...Motor Strength: LLE (muscle weakness), RLE (muscle weakness) Psychiatric: Yes: Alert - ....Imaging Other: Report Reviewed (lab data reviewed) Problem List - Problems (1) Mobitz (type) II atrioventricular block Code(s): I44.1 - ATRIOVENTRICULAR BLOCK, SECOND DEGREE (2) Unable to walk Code(s): R26.2 - DIFFICULTY IN WALKING, NOT ELSEWHERE CLASSIFIED Assessment/Plan Assessment/plan: IV Cefuroxime as per ID for sepsis due to UTI; duoneb for dyspnea/wheezing; tamsulosin for BPH; rivastigmine for dementia; amlodipine losartan and torsemide for HTN; SQ Lovenox and oral pantoprazole for DVT/GI prophylaxis; atorvastatin for HLD; Novolog 70/30 mix for DM; physical therapy for deconditioning; discharge order, psychotherapist social worker request.
[2020-03-02 08:39] LABS: ALBUMIN 2.4 g/dl (3.4-5.0); BILIRUBIN,TOTAL 0.7 mg/dL (0.2-1); BLOOD UREA NITROGEN 15.2 mg/dL (7-18); CALCIUM 8.5 mg/dL (8.5-10.1); CREATININE 1.3 mg/dL (0.55-1.3); POTASSIUM 4.1 mmol/L (3.5-5.1); TOT PROT 6.6 g/dl (6.4-8.2)
[2020-03-02] MEDS ORDERED: PT OWN MED DRAWER 7, Y5N ONE (08:52)
[2020-03-02 09:05] LABS: BASO % 0.3 % (0-2.0); EOS % 5.4 % (0-4.5); HEMATOCRIT 36.9 % (35.4-49); LYMPH % 10.2 % (8-40); MCHC 32.4 g/dl (32.0-35.9); MEAN CELL VOLUME 80.2 fl (80-96); MEAN PLT VOLUME 9.8 fl (7.5-11.1); MONO % 12.1 % (3.8-10.2); PLATELET COUNT 313 K/MM3 (134-434); RBC 4.61 M/mm3 (4.00-5.60); RDW 15.6 % (11.9-15.9); WHITE BLOOD COUNT 9.2 K/mm3 (4.0-10.0)
--- NOTE | 2020-03-02 09:12 | PN ---
Progress Note, Physician History of Present Illness: Mr. 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 Per the patients , the patient has been having difficulty ambulating and has been noticeably weaker. The pt was ambulating well, assisted on his own approximately 1 week ago, but has been getting more unsteady - yesterday was so weak could not ambulate on his own and today, he was unable to walk at all. There has been no fever/chills, cough, n/v, cp, sob, headache, dizziness, neck pain, bakc pain, focal numbness/tingling/weakness. Pt has hx of UTI and was on abx by his urologist recently - Current Medication List Current Medications: Active Medications Albuterol Sulfate (Ventolin Hfa Inhaler -) 2 puff IH Q6H PRN PRN Reason: SHORT OF BREATH/WHEEZING Albuterol/Ipratropium (Duoneb -) 1 amp NEB Q8H PRN PRN Reason: SHORT OF BREATH/WHEEZING Amlodipine Besylate (Norvasc -) 10 mg PO DAILY [facility] Last Admin: 03/01/20 10:53 Dose: 10 mg Documented by: Aspirin (Ecotrin -) 81 mg PO DAILY [facility] Last Admin: 03/01/20 10:54 Dose: 81 mg Documented by: Atorvastatin Calcium (Lipitor -) 40 mg PO HS [facility] Last Admin: 03/01/20 21:44 Dose: 40 mg Documented by: Betamethasone Dipropionate (Diprolene 0.05% Ointment -) 1 applic TP DAILY [facility] Last Admin: 03/01/20 10:54 Dose: Not Given Documented by: Cefuroxime Axetil (Ceftin -) 500 mg PO BID [facility] Last Admin: 03/01/20 21:45 Dose: 500 mg Documented by: Cyanocobalamin (Vitamin B12 -) 1,000 mcg PO DAILY [facility] Last Admin: 03/01/20 10:53 Dose: 1,000 mcg Documented by: Enoxaparin Sodium (Lovenox -) 40 mg SQ DAILY [facility] Last Admin: 03/01/20 10:52 Dose: 40 mg Documented by: Folic Acid (Folic Acid -) 1 mg PO DAILY [facility] Last Admin: 03/01/20 10:53 Dose: 1 mg Documented by: Insulin Aspart (Novolog Mix 70/30 Vial) 8 units SQ BIDAC [facility] Last Admin: 03/02/20 06:06 Dose: 8 units Documented by: Losartan Potassium (Cozaar -) 100 mg PO BID [facility] Last Admin: 03/01/20 21:45 Dose: 100 mg Documented by: Montelukast Sodium (Singulair -) 10 mg PO HS [facility] Last Admin: 03/01/20 21:44 Dose: 10 mg Documented by: Pantoprazole Sodium (Protonix -) 40 mg PO DAILY [facility] Last Admin: 03/01/20 10:53 Dose: 40 mg Documented by: Rivastigmine Tartrate (Exelon) 4.5 mg PO BID [facility] Last Admin: 03/01/20 21:45 Dose: 4.5 mg Documented by: Solifenacin (Vesicare -) 5 mg PO DAILY [facility] Last Admin: 03/01/20 10:54 Dose: 5 mg Documented by: Tamsulosin HCl (Flomax -) 0.4 mg PO DAILY@0830 [facility] Last Admin: 03/01/20 10:53 Dose: 0.4 mg Documented by: Torsemide (Demadex -) 10 mg PO DAILY [facility] Last Admin: 03/01/20 10:53 Dose: 10 mg Documented by: - Objective Vital Signs: Vital Signs Temperature 98 F 03/02/20 06:00 Pulse Rate 87 03/02/20 06:00 Respiratory Rate 18 03/02/20 06:00 Blood Pressure 154/79 03/02/20 06:00 O2 Sat by Pulse Oximetry (%) 95 03/02/20 06:00 Eyes: Yes: WNL, Conjunctiva Clear, EOM Intact HENT: Yes: WNL, Atraumatic, Normocephalic Neck: Yes: WNL, Supple, Trachea Midline Cardiovascular: Yes: WNL, Regular Rate and Rhythm Respiratory: Yes: WNL, Regular, CTA Bilaterally Gastrointestinal: Yes: WNL, Normal Bowel Sounds Genitourinary: Yes: WNL Musculoskeletal: Yes: WNL Extremities: Yes: WNL Edema: No Integumentary: Yes: WNL Labs: CBC, BMP 03/02/20 06:35 Assessment/Plan Progressive weakness; admitted when noted unable to walk. Parkinson's Progressive (and now advanced) dementia DM: HTN, at times uncontrolled HLD diastolic LV dysfunction with MR on 2018 ECHO fromer alcoholic, cigarettes (quit both 40 yrs ago). Pl: On antibiotics for r/o sepsis. EKG: NSR; normal study; no longer in Mobitz II Type I AVB F/u ECHO for LVEF, wall motion, valve status; transient Mobitz II Type I AVB On multiple medications (clonidine, verapamil, losartan, metoprolol) for HTN; f/u BP serially (Caution with continuing combination of clonidine and metoprolol: sudden withdrawal of either may result in rebound HTN, with additional potential complications of abrupt beta tessie withdrawal including TX, arrhythmias, etc. Consider gradual withdrawal of clonidine, followed later by withdrawal of beta blockers/nondihydropyridine calcium channel blockers, given transient Mobitz AVB, continuance of losartan, and use of alternative antihypertensive classes, e.g., hydralazine, amlodipine).
[2020-03-02] MEDS: FOLIC ACID 1 MG TABLET (FP) PO SCH (09:45)
[2020-03-02] MEDS: CYANOCOBALAMIN 1,000 MCG TABLET (FP) PO SCH (09:45)
[2020-03-02] MEDS: ENOXAPARIN NA (PORCINE) 40 MG/0.4 ML DISP.SYRIN SQ SCH (09:45)
[2020-03-02] MEDS: PANTOPRAZOLE 40 MG TABLET PO SCH (09:45)
[2020-03-02] MEDS: ASPIRIN COATED 81 MG TABLET.EC PO SCH (09:45)
[2020-03-02] MEDS: LOSARTAN POTASSIUM 50 MG TABLET (FP) PO SCH (09:45)
[2020-03-02] MEDS: amLODIPine BESYLATE 10 MG TABLET (FP) PO SCH (09:45)
[2020-03-02] MEDS: TAMSULOSIN HCL 0.4 MG CAP PO SCH (09:45)
[2020-03-02] MEDS: SOLIFENACIN SUCCINATE 5 MG TAB PO SCH (09:46)
[2020-03-02] MEDS: CEFUROXIME AXETIL 500 MG TABLET PO SCH (09:46)
[2020-03-02] MEDS: TORSEMIDE 10 MG TABLET PO SCH (09:46)
[2020-03-02] MEDS: BETAMETHASONE DIPR 0.05% OINT 45 GM TUBE TP SCH (09:47)
[2020-03-02] MEDS: RIVASTIGMINE TARTRATE 1.5 MG CAPSULE PO SCH (09:47)
--- NOTE | 2020-03-02 10:58 | PN ---
Progress Note, [employer]PLICATOR - Note Progress Note: Selected Entries 03/01/20 03/01/20 03/02/20 11:20 22:54 01:10 Breakfast 75% 75% Diet Tolerated Well Well Supper 50% Blood Pressure 152/80 03/02/20 06:00 Breakfast Diet Tolerated Supper Blood Pressure 154/79 Laboratory Tests 03/02/20 06:35 WBC 9.2 Plan is for d/c home today. Family education regarding diet consistency
--- NOTE | 2020-03-02 11:52 | DS ---
Physical Examination Vital Signs: Vital Signs Temperature 98 F 03/02/20 06:00 Pulse Rate 87 03/02/20 06:00 Respiratory Rate 18 03/02/20 06:00 Blood Pressure 154/79 03/02/20 06:00 O2 Sat by Pulse Oximetry (%) 95 03/02/20 06:00 Constitutional: Yes: Well Nourished, No Distress, Calm Eyes: Yes: Conjunctiva Clear, EOM Intact HENT: Yes: Atraumatic, Normocephalic Neck: Yes: Supple, Trachea Midline Cardiovascular: Yes: Regular Rate and Rhythm Respiratory: Yes: Regular, CTA Bilaterally Gastrointestinal: Yes: Normal Bowel Sounds, Soft ...Rectal Exam: Yes: Deferred Renal/: Yes: WNL Breast(s): Yes: WNL Musculoskeletal: Yes: Muscle Weakness Extremities: Yes: WNL Edema: No Peripheral Pulses WNL: Yes Integumentary: Yes: WNL Neurological: Yes: Alert ...Motor Strength: LLE (muscle weakness), RLE (muscle weakness) Psychiatric: Yes: Alert Labs: CBC, BMP 03/02/20 06:35 03/02/20 06:35 Discharge Summary Problems reviewed: Yes Reason For Visit: UNABLE TO WALK/2ND DEGREE ATRIOVENTRICULAR BLOCK Condition: Fair - Instructions Diet, Activity, Other Instructions: Continue present meds. Novolog 70/30 mix 10 units SQ bid. Activity as tolerated. Transfer [facility] for [facility] term rehab. Physical therapy. Follow up with Dr. Bautista within one week. Total time spent over 30 minutes. Referrals: Kin Flores [Primary Care Provider] - Disposition: VNS/HOME HEALTH CARE - Home Medications Comprehensive Discharge Medication List: Ambulatory Orders Aspirin [ASA -] 81 mg PO DAILY 12/30/11 Atorvastatin Ca [Lipitor] 40 mg PO HS 12/30/11 Cyanocobalamin/Folic AC/Vit B6 [Folbic Tablet] 1 each PO DAILY 12/30/11 Rasagiline Mesylate [Azilect] 1 mg PO DAILY 12/30/11 Albuterol Sulfate Inhaler - [Ventolin HFA Inhaler -] 1 - 2 inh IH QID PRN 11/13/12 Betamethasone Dipr 0.05% Oint [Diprolene] 50 gm NR DAILY 11/13/12 Folic Acid - 1 mg PO DAILY #0 tablet 11/15/12 Brinzolamide [Azopt (Non-Formulary)] 1 drop OP 02/22/20 Ipratropium/Albuterol Sulfate [Iprat-Albut 0.5-3(2.5) mg/3 ml] 3 ml IH 02/22/20 Linagliptin [Tradjenta] 5 mg PO 02/22/20 Montelukast Na [Singulair -] 10 mg PO HS 02/22/20 Solifenacin Succinate [Vesicare -] 5 mg PO DAILY 02/22/20 Tamsulosin HCl 0.4 mg PO 02/22/20 Travoprost [Travatan Z] 02/22/20 Umeclidinium Brm/Vilanterol Tr [Anoro Ellipta 62.5-25 Mcg INH] 1 each IH DAILY 02/22/20 Albuterol Sulfate Inhaler - [Ventolin HFA Inhaler -] 2 puff IH Q6H PRN inhaler 03/02/20 Amlodipine Besylate [Norvasc -] 10 mg PO DAILY #30 tablet 03/02/20 Aspirin Coated [Ecotrin -] 81 mg PO DAILY tablet.ec 03/02/20 Atorvastatin Ca [Lipitor] 40 mg PO HS tablet 03/02/20 Betamethasone Dipropionate [Diprolene 0.05% Ointment -] 1 applic TP DAILY tube 03/02/20 Cyanocobalamin [Vitamin B12 -] 1,000 mcg PO DAILY tablet 03/02/20 Folic Acid - 1 mg PO DAILY tablet 03/02/20 Insulin (Novolog 70/30) [Novolog Mix 70/30 Vial -] 8 units SQ BIDAC #480 units 03/02/20 Losartan Potassium [Cozaar -] 100 mg PO BID #60 tablet 03/02/20 Montelukast Na [Singulair -] 10 mg PO HS tablet 03/02/20 Rivastigmine Tartrate [Exelon] 4.5 mg PO BID #60 capsule 03/02/20 Solifenacin Succinate [Vesicare -] 5 mg PO DAILY tab 03/02/20 Tamsulosin HCl [Flomax -] 0.4 mg PO DAILY@0830 cap.er.24h 03/02/20 Torsemide [Demadex -] 10 mg PO DAILY #30 tablet 03/02/20
[2020-03-02 12:21] VITALS: BP 148/78; PULSE 88; TEMP 98.7
[2020-03-02] MEDS ORDERED: INSULIN (NOVOLOG MIX 70/30) 100 UNITS/ML MDV SQ SCH (16:30)
== END 2020-03-02 11:23 | disposition home health service (06) | DRG 871 ==
LOC: JER 14:53 → JERBED 17:55 → J4W 22:25
PROVIDERS: ADMIT Internal Medicine; ATTEND Internal Medicine
DX: A41.51 Sepsis due to Escherichia coli [E. coli] (principal); G92 Toxic encephalopathy; R64 Cachexia; E87.0 Hyperosmolality and hypernatremia; N39.0 Urinary tract infection, site not specified; I50.1 Left ventricular failure, unspecified; E11.9 Type 2 diabetes mellitus without complications; I44.1 Atrioventricular block, second degree; G30.9 Alzheimer's disease, unspecified; F02.80 Dementia in other diseases classified elsewhere, unspecified severity, without behavioral disturbance, psychotic disturbance, mood disturbance, and anxiety; G20 Parkinson's disease; E78.5 Hyperlipidemia, unspecified; I25.10 Atherosclerotic heart disease of native coronary artery without angina pectoris; J44.9 Chronic obstructive pulmonary disease, unspecified; R26.2 Difficulty in walking, not elsewhere classified; E88.09 Other disorders of plasma-protein metabolism, not elsewhere classified; N40.0 Benign prostatic hyperplasia without lower urinary tract symptoms; Z68.23 Body mass index [BMI] 23.0-23.9, adult; B96.20 Unspecified Escherichia coli [E. coli] as the cause of diseases classified elsewhere; N32.81 Overactive bladder; I11.0 Hypertensive heart disease with heart failure
CPT/HCPCS: 36415; 71045-TC-FY; 80048; 80053; 80061; 81003; 82803; 82962; 83036; 83605; 83721; 84443; 84484; 85025; 87086; 87186; 93005; 93010; 93306-TC; 97116-GP; 97162-GP; 99285-25; J0735; U0003

== ENCOUNTER 2022-11-12 23:04 | Inpatient (IN) | payer OTHER ==
[2022-11-12] MEDS ORDERED: ALBUTEROL SO4 0.083% IH SOL 2.5 MG/3 ML VIAL.NEB. NEB ONE ×2 (23:21→23:26)
[2022-11-12] MEDS ORDERED: SODIUM CHLORIDE 1,000 ML IV STA (23:26)
[2022-11-12] MEDS ORDERED: VANCOMYCIN 1,000 MG in DEXTROSE 5%-WATER - 250 ML IVPB ONE (23:29)
[2022-11-12] MEDS ORDERED: CEFEPIME 2 GM in DEXTROSE 5%-WATER - 100 ML IVPB ONE (23:29)
[2022-11-12 23:52] LABS: VENOUS BASE EXCESS -1.4 mmol/L (-2-2); VENOUS PCO2 61.1 mmHg (38-52); VENOUS PH 7.26 (7.310-7.410)
[2022-11-12 23:56] LABS: INR 1.33 (0.83-1.09); PROTHROMBIN TIME (PATIENT) 15.4 SEC (9.7-13.0)
[2022-11-12 23:59] LABS: ACTIVATED PTT 26.9 SECONDS (25.2-36.5)
[2022-11-13] LABS: HEMATOCRIT 39.3 % (35.4-49); MCH 25.9 pg (25.7-33.7); MCHC 30.6 g/dl (32.0-35.9); MEAN CELL VOLUME 84.7 fl (80-96); MEAN PLT VOLUME 11.6 fl (7.5-11.1); PLATELET COUNT 280 10^3/uL (134-434); RBC 4.64 M/mm3 (4.00-5.60); RDW 17.5 % (11.9-15.9); WHITE BLOOD COUNT 23.6 K/mm3 (4.0-10.0)
[2022-11-13] MEDS ORDERED: CEFEPIME 2 GM/100 ML BAG IVPB ONE (00:09)
[2022-11-13] MEDS ORDERED: ACETAMINOPHEN 1000 MG/100 ML BAG IVPB ONE (00:09)
[2022-11-13] MEDS ORDERED: ACETAMINOPHEN INJECTION 100 ML IVPB ONE (00:19)
[2022-11-13 00:40] LABS: URINE APPEARANCE CLEAR; URINE BILIRUBIN NEGATIVE (NEGATIVE); URINE COLOR YELLOW; URINE GLUCOSE (UA) 3+ (NEGATIVE); URINE KETONE NEGATIVE (NEGATIVE); URINE LEUK ESTERASE NEGATIVE (NEGATIVE); URINE NITRITE NEGATIVE (NEGATIVE); URINE PROTEIN NEGATIVE (NEGATIVE); URINE UROBILINOGEN 0.2 mg/dL (0.2-1.0)
[2022-11-13] MEDS ORDERED: ALBUTEROL SO4 0.083% IH SOL 2.5 MG/3 ML VIAL.NEB. NEB ONE (00:45)
[2022-11-13] MEDS ORDERED: VANCOMYCIN/WATER FOR INJ (PEG) 1,000 MG/200 ML BAG IVPB ONE (00:49)
[2022-11-13] MEDS ORDERED: ALBUTEROL SULFATE 0.021% (0.63 MG/3 ML) VIAL.NEB NEB ONE (00:52)
[2022-11-13] MEDS ORDERED: LACTATED RINGERS SOLUTION 1000 ML INFUS.BAG IV ONE (00:52)
[2022-11-13 01:23] LABS: LACTIC ACID 2.1 mmol/L (0.4-2.0)
[2022-11-13 01:44] LABS: BLOOD UREA NITROGEN 49.7 mg/dL (7-18); GLUCOSE,RANDOM 706 mg/dL (74-106)
[2022-11-13 01:45] LABS: CHLORIDE 120 mmol/L (98-107); CREATININE 1.8 mg/dL (0.55-1.3); POTASSIUM 4.2 mmol/L (3.5-5.1); SODIUM 151 mmol/L (136-145)
[2022-11-13 01:46] LABS: ALBUMIN 2.5 g/dl (3.4-5.0); BILIRUBIN,TOTAL 0.5 mg/dL (0.2-1); CALCIUM 9.9 mg/dL (8.5-10.1); CO2 28 mmol/L (21-32); LIPASE 160 U/L (73-393); SGOT/AST 15 U/L (15-37); TOT PROT 7.8 g/dl (6.4-8.2)
[2022-11-13 01:47] LABS: ALK PHOS 149 U/L (45-117); SGPT/ALT 28 U/L (13-61)
[2022-11-13 02:07] LABS: N-TERMINAL BNP 1355.4 pg/ml (5-450)
[2022-11-13] MEDS ORDERED: LACTATED RINGERS SOLUTION 1,000 ML/1,000 ML INFUS.BAG IV SCH (02:15)
[2022-11-13 02:20] LABS: VENOUS BASE EXCESS -0.5 mmol/L (-2-2); VENOUS PCO2 53.5 mmHg (38-52); VENOUS PH 7.31 (7.310-7.410)
[2022-11-13 03:05] LABS: CHLORIDE 120 mmol/L (98-107); POTASSIUM 4.1 mmol/L (3.5-5.1); SODIUM 153 mmol/L (136-145)
[2022-11-13 03:07] LABS: CALCIUM 8.9 mg/dL (8.5-10.1)
[2022-11-13 03:08] LABS: ANION GAP 4 MMOL/L (8-16); BLOOD UREA NITROGEN 44.3 mg/dL (7-18); CO2 29 mmol/L (21-32)
[2022-11-13 03:11] LABS: CREATININE 1.5 mg/dL (0.55-1.3); SGOT/AST 16 U/L (15-37); SGPT/ALT 25 U/L (13-61)
[2022-11-13 03:12] LABS: BILIRUBIN,TOTAL 0.3 mg/dL (0.2-1)
[2022-11-13 03:13] LABS: TOT PROT 6.3 g/dl (6.4-8.2)
[2022-11-13 03:32] LABS: ALK PHOS 117 U/L (45-117); GLUCOSE,RANDOM 620 mg/dL (74-106); LACTIC ACID 3.7 mmol/L (0.4-2.0)
[2022-11-13] MEDS ORDERED: INSULIN REGULAR HUMAN 100 UNITS/ML *VIAL SQ ONE (03:37)
[2022-11-13 03:41] LABS: ANISOCYTOSIS 2+; MACROCYTOSIS 1+; ROULEAU 1+
[2022-11-13] MEDS ORDERED: SODIUM CHLORIDE 0.45% 1,000 ML IV SCH ×4 (03:45→14:41)
[2022-11-13] MEDS ORDERED: ACETAMINOPHEN 1000 MG/100 ML BAG IVPB PRN (04:50)
[2022-11-13] MEDS ORDERED: IPRATROPIUM BR 0.02% 0.5 MG/2.5 ML VIAL.NEB. NEB PRN (04:59)
[2022-11-13] MEDS ORDERED: HEPARIN NA (PORCINE) 5,000 UNITS/ML 1ML VIAL SQ SCH (06:00)
[2022-11-13] MEDS ORDERED: INSULIN SLIDING SCALE (NOVOLOG) 1 VIAL SQ SCH (07:00)
[2022-11-13] MEDS ORDERED: INSULIN (LEVEMIR) 100 UNITS/ML UNITS SQ SCH (07:00)
[2022-11-13 07:18] LABS: HEMATOCRIT 34.3 % (35.4-49); HEMOGLOBIN 10.5 GM/dL (11.7-16.9); MCH 25.8 pg (25.7-33.7); MCHC 30.6 g/dl (32.0-35.9); MEAN CELL VOLUME 84.1 fl (80-96); MEAN PLT VOLUME 11.2 fl (7.5-11.1); PLATELET COUNT 215 10^3/uL (134-434); RBC 4.08 M/mm3 (4.00-5.60); RDW 16.6 % (11.9-15.9); WHITE BLOOD COUNT 26.4 K/mm3 (4.0-10.0)
[2022-11-13] MEDS: HEPARIN NA (PORCINE) 5,000 UNITS/ML 1ML VIAL SQ SCH ×3 (07:30→21:27)
[2022-11-13 07:38] LABS: CHLORIDE 123 mmol/L (98-107); POTASSIUM 3.2 mmol/L (3.5-5.1); SODIUM 153 mmol/L (136-145)
[2022-11-13 07:39] LABS: ANION GAP 4 MMOL/L (8-16); BLOOD UREA NITROGEN 40.6 mg/dL (7-18); CALCIUM 8.4 mg/dL (8.5-10.1); CO2 27 mmol/L (21-32)
[2022-11-13 07:41] LABS: CHLORIDE 122 mmol/L (98-107); POTASSIUM 3.1 mmol/L (3.5-5.1); SODIUM 153 mmol/L (136-145)
[2022-11-13 07:42] LABS: CREATININE 1.2 mg/dL (0.55-1.3)
[2022-11-13 07:43] LABS: ALBUMIN 2.4 g/dl (3.4-5.0); ANION GAP 7 MMOL/L (8-16); CALCIUM 9.3 mg/dL (8.5-10.1); CO2 24 mmol/L (21-32)
[2022-11-13 07:44] LABS: BLOOD UREA NITROGEN 42.5 mg/dL (7-18)
[2022-11-13 07:46] LABS: SGPT/ALT 29 U/L (13-61)
[2022-11-13] MEDS: INSULIN SLIDING SCALE (NOVOLOG) 1 VIAL SQ SCH ×4 (07:46→21:28)
[2022-11-13 07:47] LABS: CREATININE 1.4 mg/dL (0.55-1.3); SGOT/AST 20 U/L (15-37)
[2022-11-13 07:48] LABS: BILIRUBIN,TOTAL 0.2 mg/dL (0.2-1); TOT PROT 7.2 g/dl (6.4-8.2)
[2022-11-13 07:49] LABS: ALK PHOS 131 U/L (45-117)
[2022-11-13 08:00] LABS: LACTIC ACID 3.7 mmol/L (0.4-2.0)
[2022-11-13 08:00] LABS: GLUCOSE,RANDOM 480 mg/dL (74-106)
[2022-11-13 08:00] LABS: GLUCOSE,RANDOM 489 mg/dL (74-106)
[2022-11-13 08:47] LABS: MAGNESIUM 2.6 mg/dL (1.8-2.4)
[2022-11-13] MEDS ORDERED: METOPROLOL TARTRATE 5 MG/5 ML VIAL IVPUSH PRN (08:55)
[2022-11-13] MEDS: PANTOPRAZOLE SODIUM 40 MG VIAL IVPUSH SCH (09:32)
[2022-11-13] MEDS: KCL 10 MEQ IVPB 10 MEQ/100 ML INFUS.BAG IVPB SCH ×3 (09:34→12:23)
[2022-11-13] MEDS ORDERED: ASPIRIN COATED 81 MG TABLET.EC PO SCH (10:00)
[2022-11-13] MEDS ORDERED: MUPIROCIN 2% TOPICAL OINTMENT FOR DECOLONIZATION NS SCH (10:00)
[2022-11-13] MEDS ORDERED: PANTOPRAZOLE SODIUM 40 MG VIAL IVPUSH SCH (10:00)
[2022-11-13] MEDS: FOLIC ACID 1 MG TABLET (FP) PO SCH (10:16)
[2022-11-13 10:47] LABS: TOTAL IRON BINDING CAPACITY 173 ug/dL (250-450)
[2022-11-13 10:48] LABS: IRON SERUM 16 ug/dL (50-175)
[2022-11-13] MEDS ORDERED: INSULIN (NOVOLOG) ASPART 100 UNITS/ML 10ML VIAL ONE (11:04)
[2022-11-13 11:15] LABS: ANISOCYTOSIS 0; MACROCYTOSIS 0
[2022-11-13] MEDS ORDERED: ALBUTEROL SO4 2.5/IPRATROPIUM 0.5 INH SOL 3 ML VIAL.NEB. NEB PRN (13:52)
[2022-11-13] MEDS: COLLAGENASE CLOSTRIDIUM HIST. 30 GRAMS TUBE TP SCH (17:09)
[2022-11-13] MEDS ORDERED: DEXTROSE 50%-WATER 25 GM/50 ML DISP.SYRIN ONE ×2 (18:34→23:38)
[2022-11-13] MEDS ORDERED: D5-1/2NS+10 MEQ KCL - 10 MEQ/1,000 ML INFUS.BAG IV SCH (18:45)
[2022-11-13] MEDS: DEXTROSE 50%-WATER 25 GM/50 ML DISP.SYRIN IVPUSH ONE ×2 (18:59→23:42)
[2022-11-13] MEDS ORDERED: CHLORHEXIDINE GLUCONATE 4% CLEANSER FOR DECOLONIZATION TP SCH (22:00)
[2022-11-13] MEDS ORDERED: ATORVASTATIN CA 40 MG TABLET (FP) PO SCH (22:00)
[2022-11-14] MEDS: INSULIN SLIDING SCALE (NOVOLOG) 1 VIAL SQ SCH ×6 (03:36→22:01)
[2022-11-14] MEDS: PIPERACILLIN/TAZOB 3.375 GM 3.375 GM in DEXTROSE 5%-WATER - 50 ML IVPB SCH ×3 (03:54→17:01)
[2022-11-14] MEDS ORDERED: IRON SUCROSE INJECTION 300 MG in SODIUM CHLORIDE 235 ML IVPB ONE (06:30)
[2022-11-14] MEDS: HEPARIN NA (PORCINE) 5,000 UNITS/ML 1ML VIAL SQ SCH ×3 (07:12→22:00)
[2022-11-14 08:35] LABS: HEMATOCRIT 36.3 % (35.4-49); HEMOGLOBIN 11.2 GM/dL (11.7-16.9); MCH 25.2 pg (25.7-33.7); MCHC 30.8 g/dl (32.0-35.9); MEAN CELL VOLUME 81.8 fl (80-96); MEAN PLT VOLUME 10.2 fl (7.5-11.1); PLATELET COUNT 235 10^3/uL (134-434); RBC 4.43 M/mm3 (4.00-5.60); RDW 16.5 % (11.9-15.9); WHITE BLOOD COUNT 25.8 K/mm3 (4.0-10.0)
[2022-11-14 08:42] LABS: POTASSIUM 3.8 mmol/L (3.5-5.1)
[2022-11-14 08:44] LABS: ALBUMIN 1.9 g/dl (3.4-5.0); CALCIUM 9.1 mg/dL (8.5-10.1)
[2022-11-14 08:47] LABS: CREATININE 0.9 mg/dL (0.55-1.3)
[2022-11-14 08:49] LABS: BILIRUBIN,TOTAL 0.3 mg/dL (0.2-1); TOT PROT 6.2 g/dl (6.4-8.2)
[2022-11-14] MEDS: PANTOPRAZOLE SODIUM 40 MG VIAL IVPUSH SCH (09:19)
[2022-11-14] MEDS ORDERED: AZITHROMYCIN IVPB 500 MG in DEXTROSE 5%-WATER - 250 ML IVPB SCH (10:00)
[2022-11-14 10:10] LABS: ANISOCYTOSIS 0; HELMET CELLS 0; HOWELL-JOLLY BODIES 0; MACROCYTOSIS 0; OVALOCYTE 0; ROULEAU 0; SICKELED CELLS 0; TARGET CELLS 0; TEAR DROP CELLS 0; TOXIC GRANULATION 0
[2022-11-14] MEDS: FOLIC ACID 1 MG TABLET (FP) PO SCH (10:30)
[2022-11-14] MEDS: COLLAGENASE CLOSTRIDIUM HIST. 30 GRAMS TUBE TP SCH (11:59)
[2022-11-14] MEDS ORDERED: hydrALAZINE HCL 20 MG/ML VIAL IVPUSH PRN ×2 (12:15→12:49)
[2022-11-14] MEDS: AZITHROMYCIN IVPB 500 MG/250 ML BAG IVPB SCH (12:33)
[2022-11-14] MEDS ORDERED: POTASSIUM CHLORIDE 20 MEQ in DEXTROSE 5%-WATER - 1,000 ML IV SCH (15:15)
[2022-11-14 16:02] LABS: POTASSIUM 3.8 mmol/L (3.5-5.1)
[2022-11-14 16:19] VITALS: BMI 13.8
[2022-11-14] MEDS ORDERED: DEXTROSE 5%-WATER - 1,000 ML IV SCH (16:45)
[2022-11-14] MEDS: DEXTROSE 5%-WATER - 1,000 ML with POTASSIUM CHLORIDE 20 MEQ IV SCH (17:17)
[2022-11-14] MEDS ORDERED: INSULIN (NOVOLOG) ASPART 100 UNITS/ML 10ML VIAL ONE (21:50)
[2022-11-15] MEDS: PIPERACILLIN/TAZOB 3.375 GM 3.375 GM in DEXTROSE 5%-WATER - 50 ML IVPB SCH ×3 (01:07→17:35)
[2022-11-15] MEDS ORDERED: INSULIN (NOVOLOG) ASPART 100 UNITS/ML 10ML VIAL ONE ×3 (01:36→22:44)
[2022-11-15] MEDS: INSULIN SLIDING SCALE (NOVOLOG) 1 VIAL SQ SCH ×6 (01:37→22:47)
[2022-11-15] MEDS: DEXTROSE 5%-WATER - 1,000 ML with POTASSIUM CHLORIDE 20 MEQ IV SCH (05:17)
[2022-11-15] MEDS: HEPARIN NA (PORCINE) 5,000 UNITS/ML 1ML VIAL SQ SCH ×3 (06:06→21:41)
[2022-11-15 06:44] LABS: HEMATOCRIT 34.4 % (35.4-49); HEMOGLOBIN 10.4 GM/dL (11.7-16.9); MCHC 30.2 g/dl (32.0-35.9); MEAN CELL VOLUME 82.6 fl (80-96); MEAN PLT VOLUME 11.4 fl (7.5-11.1); PLATELET COUNT 261 10^3/uL (134-434); RBC 4.16 M/mm3 (4.00-5.60); RDW 16.6 % (11.9-15.9); WHITE BLOOD COUNT 22.9 K/mm3 (4.0-10.0)
[2022-11-15 07:04] LABS: POTASSIUM 3.5 mmol/L (3.5-5.1)
[2022-11-15 07:07] LABS: CALCIUM 9.1 mg/dL (8.5-10.1)
[2022-11-15 07:08] LABS: BLOOD UREA NITROGEN 26.3 mg/dL (7-18)
[2022-11-15 07:11] LABS: CREATININE 0.8 mg/dL (0.55-1.3)
[2022-11-15] MEDS: KCL 10 MEQ IVPB 10 MEQ/100 ML INFUS.BAG IVPB SCH ×3 (09:00→12:00)
[2022-11-15 09:08] LABS: ANISOCYTOSIS 0; MACROCYTOSIS 0
[2022-11-15] MEDS: FOLIC ACID 1 MG TABLET (FP) PO SCH (09:36)
[2022-11-15] MEDS: PANTOPRAZOLE SODIUM 40 MG VIAL IVPUSH SCH (09:37)
[2022-11-15] MEDS: AZITHROMYCIN IVPB 500 MG/250 ML BAG IVPB SCH (09:37)
[2022-11-15] MEDS ORDERED: METOPROLOL TARTRATE 5 MG/5 ML VIAL IVPUSH SCH (13:45)
[2022-11-15] MEDS: ENALAPRILAT DIHYDRATE 1.25 MG/1 ML VIAL IVPB SCH ×2 (15:14→21:41)
[2022-11-15] MEDS ORDERED: hydrALAZINE HCL 20 MG/ML VIAL IVPUSH PRN (17:33)
[2022-11-15] MEDS ORDERED: DEXTROSE 5%-WATER - 1,000 ML with POTASSIUM CHLORIDE 20 MEQ IV SCH (17:59)
[2022-11-15] MEDS: POTASSIUM CHLORIDE 20 MEQ in DEXTROSE 5%-WATER - 1,000 ML IV SCH (20:12)
[2022-11-15] MEDS: DORZOLAMIDE 2% HCL OPHTHALMIC SOLUTION 10 ML BOTTLE OU SCH (21:42)
[2022-11-15] MEDS ORDERED: LATANOPROST 0.005% OPHTH SOLN 2.5ML BOTTLE OU SCH (22:00)
[2022-11-15] MEDS ORDERED: DORZOLAMIDE 2% HCL OPHTHALMIC SOLUTION 10 ML BOTTLE OU SCH (22:00)
[2022-11-16] MEDS: PIPERACILLIN/TAZOB 3.375 GM 3.375 GM in DEXTROSE 5%-WATER - 50 ML IVPB SCH ×2 (02:20→12:56)
[2022-11-16] MEDS: INSULIN SLIDING SCALE (NOVOLOG) 1 VIAL SQ SCH ×4 (02:26→13:47)
[2022-11-16] MEDS: ENALAPRILAT DIHYDRATE 1.25 MG/1 ML VIAL IVPB SCH ×2 (02:58→12:59)
[2022-11-16] MEDS: POTASSIUM CHLORIDE 20 MEQ in DEXTROSE 5%-WATER - 1,000 ML IV SCH (03:42)
[2022-11-16] MEDS ORDERED: INSULIN (NOVOLOG) ASPART 100 UNITS/ML 10ML VIAL ONE ×2 (06:43→13:40)
[2022-11-16] MEDS: HEPARIN NA (PORCINE) 5,000 UNITS/ML 1ML VIAL SQ SCH ×2 (06:52→13:47)
[2022-11-16] MEDS: DORZOLAMIDE 2% HCL OPHTHALMIC SOLUTION 10 ML BOTTLE OU SCH ×2 (06:53→13:47)
[2022-11-16 08:48] LABS: POTASSIUM 5.4 mmol/L (3.5-5.1)
[2022-11-16 08:56] LABS: BLOOD UREA NITROGEN 19.1 mg/dL (7-18); CALCIUM 8.6 mg/dL (8.5-10.1)
[2022-11-16 09:00] LABS: CREATININE 0.8 mg/dL (0.55-1.3)
[2022-11-16 09:01] LABS: HEMATOCRIT 35.6 % (35.4-49); HEMOGLOBIN 10.9 GM/dL (11.7-16.9); MCHC 30.5 g/dl (32.0-35.9); MEAN CELL VOLUME 81.8 fl (80-96); MEAN PLT VOLUME 10.7 fl (7.5-11.1); PLATELET COUNT 183 10^3/uL (134-434); RBC 4.35 M/mm3 (4.00-5.60); RDW 16.9 % (11.9-15.9); WHITE BLOOD COUNT 22.9 K/mm3 (4.0-10.0)
[2022-11-16] MEDS: FOLIC ACID 1 MG TABLET (FP) PO SCH (09:32)
[2022-11-16 10:57] LABS: ANISOCYTOSIS 0; MACROCYTOSIS 0
[2022-11-16] MEDS ORDERED: DEXTROSE 5%-WATER - 1,000 ML IV SCH (11:15)
[2022-11-16] MEDS: AZITHROMYCIN IVPB 500 MG/250 ML BAG IVPB SCH (12:55)
[2022-11-16] MEDS: PANTOPRAZOLE SODIUM 40 MG VIAL IVPUSH SCH (12:55)
[2022-11-16 13:23] LABS: POTASSIUM 4.9 mmol/L (3.5-5.1)
[2022-11-16 13:24] LABS: CALCIUM 9.4 mg/dL (8.5-10.1)
[2022-11-16 13:25] LABS: BLOOD UREA NITROGEN 22.8 mg/dL (7-18)
[2022-11-16 13:28] LABS: CREATININE 0.9 mg/dL (0.55-1.3)
[2022-11-16] MEDS ORDERED: ACETAMINOPHEN 1000 MG/100 ML BAG IVPB PRN (13:39)
[2022-11-16 14:04] VITALS: BP 148/106; PULSE 85; RESP 24; TEMP 97.4
== END 2022-11-16 15:50 | disposition expired | DRG 871 ==
LOC: JER 23:04 → JERBED 11-13 01:57 → J4W 11-13 08:36
PROVIDERS: ADMIT Internal Medicine; ATTEND Internal Medicine
DX: A41.9 Sepsis, unspecified organism (principal); E11.00 Type 2 diabetes mellitus with hyperosmolarity without nonketotic hyperglycemic-hyperosmolar coma (NKHHC); J18.9 Pneumonia, unspecified organism; R53.2 Functional quadriplegia; J96.01 Acute respiratory failure with hypoxia; G92.8 Other toxic encephalopathy; E43 Unspecified severe protein-calorie malnutrition; N17.9 Acute kidney failure, unspecified; E87.20 Acidosis, unspecified; R64 Cachexia; Z68.1 Body mass index [BMI] 19.9 or less, adult; I24.8 Other forms of acute ischemic heart disease; N39.0 Urinary tract infection, site not specified; E87.0 Hyperosmolality and hypernatremia; G20 Parkinson's disease; G30.9 Alzheimer's disease, unspecified; F02.80 Dementia in other diseases classified elsewhere, unspecified severity, without behavioral disturbance, psychotic disturbance, mood disturbance, and anxiety; I10 Essential (primary) hypertension; I25.10 Atherosclerotic heart disease of native coronary artery without angina pectoris; R77.8 Other specified abnormalities of plasma proteins; E86.0 Dehydration; E87.6 Hypokalemia; Z79.4 Long term (current) use of insulin; D63.8 Anemia in other chronic diseases classified elsewhere; Z74.01 Bed confinement status; N40.0 Benign prostatic hyperplasia without lower urinary tract symptoms; D50.9 Iron deficiency anemia, unspecified
CPT/HCPCS: 0241U-QW; 36415; 70450-TC; 71045-TC-FY; 71250-TC; 74176-TC; 80048; 80051; 80053; 81003; 82010; 82550; 82728; 82803; 82962; 83540; 83550; 83605; 83690; 83735; 83880; 84100; 84484; 85025; 85379; 85610; 85730; 87040; 87086; 93005; 93010; 93306-TC; 97162-GP; 99291; J1644; J1756